=== PATIENT | female | born 1980 | race Caucasian/White ===

== ENCOUNTER 2016-09-26 03:20 | Emergency (ER) | payer OTHER ==
[2016-09-26 03:29] VITALS: RESP 18
[2016-09-26] MEDS ORDERED: KETOROLAC 30 MG/ML 1 ML VIAL IVP STA (03:38)
[2016-09-26] MEDS ORDERED: SODIUM CHLORIDE 0.9% 1,000 ML IV STA (03:38)
[2016-09-26] MEDS ORDERED: ONDANSETRON 4 MG/2 ML VIAL IVP STA ×2 (03:38→05:45)
--- NOTE | 2016-09-26 03:56 | ED ---
Abdominal Pain HPI - General Source: patient, RN notes reviewed, old records reviewed Mode of arrival: ambulatory Limitations: no limitations <Geeta Reid - Last Filed: 09/26/16 04:10> <Iggy Lopez - Last Filed: 09/26/16 05:45> - General Chief Complaint: Abdominal Pain Stated Complaint: abdominal pain, nausea Time Seen by Provider: 09/26/16 03:36 - History of Present Illness Initial Comments: Is a 36-year-old female presents emergency Department with chief complaint of 1 day of lower abdominal pain and nausea. She denies any specific vomiting. Patient states that she's been having menstrual cramps and bleeding for the past month. She reports that she had a low hemoglobin a month ago. She states that she has been started on control pills but she is continuing to bleed. Patient denies any fever or chills. Denies any changes in urination or bowel movements. Patient reports that she has a history of ovarian cyst. Surgical history includes laparoscopic procedure to remove an ovarian cyst. ( Geeta Reid) - Related Data Home Medications Medication Instructions Recorded Confirmed Albuterol Nebulized [Ventolin 2.5 mg INHALATION QID PRN 08/09/16 09/26/16 Nebulized] Norgestimate-Ethinyl Estradiol 09/26/16 [Trinessa Tablet] Allergies Allergy/AdvReac Type Severity Reaction Status Date / Time No Known Allergies Allergy Verified 08/09/16 19:13 Review of Systems ROS Other: All systems not noted in ROS Statement are negative. <Geeta Reid - Last Filed: 09/26/16 04:10> ROS Other: All systems not noted in ROS Statement are negative. <Iggy Lopez - Last Filed: 09/26/16 05:45> ROS Statement: Those systems with pertinent positive or pertinent negative responses have been documented in the HPI. Past Medical History Past Medical History: Asthma History of Any Multi-Drug Resistant Organisms: None Reported Additional Past Surgical History / Comment(s): ovarian cyst Past Psychological History: Anxiety Smoking Status: Never smoker Past Alcohol Use History: None Reported Past Drug Use History: None Reported <Geeta Reid - Last Filed: 09/26/16 04:10> General Exam Limitations: no limitations General appearance: alert, in no apparent distress Head exam: Present: atraumatic, normocephalic, normal inspection Eye exam: Present: normal appearance, PERRL, EOMI. Absent: scleral icterus, conjunctival injection, periorbital swelling ENT exam: Present: normal exam, mucous membranes moist Neck exam: Present: normal inspection. Absent: tenderness, meningismus, lymphadenopathy Respiratory exam: Present: normal lung sounds bilaterally. Absent: respiratory distress, wheezes, rales, rhonchi, stridor Cardiovascular Exam: Present: regular rate, normal rhythm, normal heart sounds. Absent: systolic murmur, diastolic murmur, rubs, gallop, clicks GI/Abdominal exam: Present: soft, tenderness (Bilateral lower abdominal tenderness.), normal bowel sounds. Absent: distended, guarding, rebound, rigid External exam: Present: normal external exam. Absent: erythema Speculum exam: Present: vaginal bleeding. Absent: normal speculum exam, vaginal discharge, foreign body, tissue, laceration By manual exam: Present: normal by manual exam. Absent: cervical motion tenderness, adnexal tenderness, adnexal mass, uterine enlargement Extremities exam: Present: normal inspection, full ROM, normal capillary refill. Absent: tenderness, pedal edema, joint swelling, calf tenderness Back exam: Present: normal inspection Neurological exam: Present: alert, oriented X3, CN II-XII intact Psychiatric exam: Present: normal affect, normal mood Skin exam: Present: warm, dry, intact, normal color. Absent: rash <Geeta Reid - Last Filed: 09/26/16 04:10> <Iggy Lopez - Last Filed: 09/26/16 05:45> - General Exam Comments Initial Comments: Is an anxious 36-year-old female. Patient appears to be in some discomfort. ( Geeta Reid) Course <Geeta Reid - Last Filed: 09/26/16 04:10> <Iggy Lopez - Last Filed: 09/26/16 05:45> Vital Signs 09/26/16 03:25 Temperature 99.0 F Pulse Rate 75 Respiratory 18 Rate Blood Pressure 132/77 O2 Sat by Pulse 96 Oximetry - Reevaluation(s) Reevaluation #1: 09/26/16 04:11 At 4 AM patient's case will be transferred to Dr. Lopez. (Geeta Reid) Medical Decision Making - Lab Data Result diagrams: 09/26/16 03:57 <Geeta Reid - Last Filed: 09/26/16 04:10> - Lab Data Result diagrams: 09/26/16 03:57 09/26/16 03:57 <Iggy Lopez - Last Filed: 09/26/16 05:45> - Medical Decision Making I went into the room to reevaluate the patient. Patient stated that her pain came on about 7:00 and progressively got worse to about 2:00 in the morning. Patient states currently the pain is improved but is on both sides of her abdomen. Patient states touching her belly does not make it worse. Patient states she still feeling nauseated. Patient states she has a [employer] appointment today at 2:00 for the vaginal bleeding. On examination her belly has no area of tenderness on palpation (Iggy Lopez) - Lab Data Lab Results 09/26/16 09/26/16 09/26/16 Range/Units 03:57 03:57 03:57 WBC 10.7 H (3.8-10.6) k/uL RBC 4.07 (3.80-5.40) m/uL Hgb 12.9 (11.4-16.0) gm/dL Hct 36.9 (34.0-46.0) % MCV 90.7 (80.0-100.0) fL MCH 31.7 (25.0-35.0) pg MCHC 35.0 (31.0-37.0) g/dL RDW 12.8 (11.5-15.5) % Plt Count 241 (150-450) k/uL Neutrophils % 61 % Lymphocytes % 31 % Monocytes % 4 % Eosinophils % 2 % Basophils % 0 % Neutrophils # 6.5 (1.3-7.7) k/uL Lymphocytes # 3.3 (1.0-4.8) k/uL Monocytes # 0.4 (0-1.0) k/uL Eosinophils # 0.2 (0-0.7) k/uL Basophils # 0.1 (0-0.2) k/uL Sodium 140 (137-145) mmol/L Potassium 4.2 (3.5-5.1) mmol/L Chloride 106 (98-107) mmol/L Carbon Dioxide 23 (22-30) mmol/L Anion Gap 11 mmol/L BUN 23 H (7-17) mg/dL Creatinine 0.77 (0.52-1.04) mg/dL Est GFR (MDRD) Af Amer >60 (>60 ml/min/1.73 sqM) Est GFR (MDRD) Non-Af >60 (>60 ml/min/1.73 sqM) Glucose 110 H (74-99) mg/dL Calcium 9.6 (8.4-10.2) mg/dL Total Bilirubin 0.4 (0.2-1.3) mg/dL AST 20 (14-36) U/L ALT 28 (9-52) U/L Alkaline Phosphatase 52 (38-126) U/L Total Protein 7.6 (6.3-8.2) g/dL Albumin 4.3 (3.5-5.0) g/dL Amylase 49 (30-110) U/L Lipase 235 (23-300) U/L Urine Color Red Urine Appearance Cloudy H (Clear) Urine pH 5.5 (5.0-8.0) Ur Specific [place] 1.017 (1.001-1.035) Urine Protein 1+ H (Negative) Urine Glucose (UA) Negative (Negative) Urine Ketones Negative (Negative) Urine Blood Large H (Negative) Urine Nitrite Negative (Negative) Urine Bilirubin Negative (Negative) Urine Urobilinogen <2.0 (<2.0) mg/dL Ur Leukocyte Esterase Moderate H (Negative) Urine RBC >182 H (0-5) /hpf Urine WBC >182 H (0-5) /hpf Urine HCG, Qual (Not Detectd) 09/26/16 Range/Units 03:57 WBC (3.8-10.6) k/uL RBC (3.80-5.40) m/uL Hgb (11.4-16.0) gm/dL Hct (34.0-46.0) % MCV (80.0-100.0) fL MCH (25.0-35.0) pg MCHC (31.0-37.0) g/dL RDW (11.5-15.5) % Plt Count (150-450) k/uL Neutrophils % % Lymphocytes % % Monocytes % % Eosinophils % % Basophils % % Neutrophils # (1.3-7.7) k/uL Lymphocytes # (1.0-4.8) k/uL Monocytes # (0-1.0) k/uL Eosinophils # (0-0.7) k/uL Basophils # (0-0.2) k/uL Sodium (137-145) mmol/L Potassium (3.5-5.1) mmol/L Chloride (98-107) mmol/L Carbon Dioxide (22-30) mmol/L Anion Gap mmol/L BUN (7-17) mg/dL Creatinine (0.52-1.04) mg/dL Est GFR (MDRD) Af Amer (>60 ml/min/1.73 sqM) Est GFR (MDRD) Non-Af (>60 ml/min/1.73 sqM) Glucose (74-99) mg/dL Calcium (8.4-10.2) mg/dL Total Bilirubin (0.2-1.3) mg/dL AST (14-36) U/L ALT (9-52) U/L Alkaline Phosphatase (38-126) U/L Total Protein (6.3-8.2) g/dL Albumin (3.5-5.0) g/dL Amylase (30-110) U/L Lipase (23-300) U/L Urine Color Urine Appearance (Clear) Urine pH (5.0-8.0) Ur Specific [place] (1.001-1.035) Urine Protein (Negative) Urine Glucose (UA) (Negative) Urine Ketones (Negative) Urine Blood (Negative) Urine Nitrite (Negative) Urine Bilirubin (Negative) Urine Urobilinogen (<2.0) mg/dL Ur Leukocyte Esterase (Negative) Urine RBC (0-5) /hpf Urine WBC (0-5) /hpf Urine HCG, Qual Not Detected (Not Detectd) Disposition <Geeta Reid - Last Filed: 09/26/16 04:10> Time of Disposition: 05:45 <Iggy Lopez - Last Filed: 09/26/16 05:45> Clinical Impression: Dysfunctional uterine bleeding, Abdominal pain Disposition: HOME SELF-CARE Condition: Good Instructions: Abdominal Pain (ED) Additional Instructions: Patient should follow-up with her [employer] at 2:00 today as previously scheduled Referrals: Nonstaff,Physician [Primary Care Provider] - 1-2 days
[2016-09-26 04:03] LABS: Basophils # (A) 0.1 k/uL (0-0.2); Basophils % (A) 0 %; CH 31.2; CHCM 34.5; Eosinophils # (A) 0.2 k/uL (0-0.7); Eosinophils % (A) 2 %; HCT 36.9 % (34.0-46.0); HGB 12.9 gm/dL (11.4-16.0); Luc # (Auto) 0.12; Luc % (Auto) 1; Lymphocytes # (A) 3.3 k/uL (1.0-4.8); Lymphocytes % (A) 31 %; MCH 31.7 pg (25.0-35.0); MCV 90.7 fL (80.0-100.0); Mean Platelet Volume 6.4; Monocytes # (A) 0.4 k/uL (0-1.0); Monocytes % (A) 4 %; Neutrophils # (A) 6.5 k/uL (1.3-7.7); Neutrophils % (A) 61 %; RBC 4.07 m/uL (3.80-5.40); RDW 12.8 % (11.5-15.5); WBC 10.7 k/uL (3.8-10.6); WBC (Perox) 10.84
[2016-09-26 04:05] LABS: Appearance,Urine Cloudy (Clear); Bilirubin,Urine Negative (Negative); Glucose,Urine (UA) Negative (Negative); Ketones,Urine Negative (Negative); Leukocyte Esterase,Urine Moderate (Negative); Nitrite,Urine Negative (Negative); PH, Urine 5.5 (5.0-8.0); Particle Count 4502; Protein,Urine 1+ (Negative); RBC,Urine >182 /hpf (0-5); Specific Gravity,Urine 1.017 (1.001-1.035); UA Billing (MACRO vs. MICRO) MICRO; Urobilinogen,Urine <2.0 mg/dL (<2.0); WBC,Urine >182 /hpf (0-5)
[2016-09-26 04:11] LABS: ALT 28 U/L (9-52); AST 20 U/L (14-36); Alkaline Phosphatase 52 U/L (38-126); Amylase 49 U/L (30-110); Anion Gap 11 mmol/L; Blood Urea Nitrogen 23 mg/dL (7-17); Calcium 9.6 mg/dL (8.4-10.2); Carbon Dioxide 23 mmol/L (22-30); Chloride 106 mmol/L (98-107); Glucose 110 mg/dL (74-99); Non-African American GFR(MDRD) >60 (>60 ml/min/1.73 sqM); Potassium 4.2 mmol/L (3.5-5.1); Sodium 140 mmol/L (137-145); Total Bilirubin 0.4 mg/dL (0.2-1.3); Total Protein 7.6 g/dL (6.3-8.2)
--- NOTE | 2016-09-26 04:33 | XR ---
ADDENDUM - Added by Dixie Sykes MD on 09/26/2016 4:36 AM (-07:00) Comparison made with CT dated 08/09/2016. EXAM: XR Abdomen Complete, 2 Views CLINICAL HISTORY: Abdominal pain. TECHNIQUE: Frontal view of the abdomen/pelvis with upright view of the abdomen. COMPARISON: No relevant prior studies available. FINDINGS: Intraperitoneal space: No evidence of free air. Gastrointestinal tract: No dilated small bowel loops to suggest small bowel obstruction. Bones/joints: Unremarkable. IMPRESSION: Nonspecific bowel gas pattern. No evidence of bowel obstruction or free air.
[2016-09-26] MEDS ORDERED: HYDROmorphone 1 MG/ML 1 ML SYRINGE IVP STA ×2 (05:09→05:45)
[2016-09-26] MEDS ORDERED: ONDANSETRON 4 MG ODT STARTER PACK 2 TAB BTL PO STA (05:45)
[2016-09-26 06:13] VITALS: BP 141/86; PULSE 86; TEMP 97.8
== END 2016-09-26 06:10 | disposition home or self-care (01) ==
LOC: EC 03:20
DX: N93.8 Other specified abnormal uterine and vaginal bleeding (principal); R10.31 Right lower quadrant pain; R10.32 Left lower quadrant pain; R11.0 Nausea; Z79.3 Long term (current) use of hormonal contraceptives
CPT/HCPCS: 36415; 80053; 82150; 83690; 85025; 81001; 81025; 87070; 87205; 74000; 99284; 96374; 96375 ×2; 96376 ×2; 96361 ×2; J2405; J1885; J1170; S0119

== ENCOUNTER 2017-02-03 22:21 | Emergency (ER) | payer OTHER ==
[2017-02-03 22:46] VITALS: BP 145/84; PULSE 73; RESP 20; TEMP 98.9
--- NOTE | 2017-02-03 23:02 | ED ---
URI HPI - General Chief Complaint: Upper Respiratory Infection Stated Complaint: Cogestion Source: patient Mode of arrival: ambulatory Limitations: no limitations - History of Present Illness Initial Comments: Patient presents with nasal congestion that she states has been constant for 1 day. Patient has not tried anything for treatment home. Mother bedside states patient does have a history of seasonal ALLERGIES. Patient is not on any daily medication for congestion or seasonal ALLERGIES. Patient does have a history of asthma, states she's been using her a butyl inhaler every 4 hours as needed, states she only has 3 cartridges left. States she does not feel short of breath or wheezy at this time. Patient denies fevers, chills, nausea, vomiting , vision changes, ear pain, ear drainage, nosebleeds, sore throat, dental problems, facial swelling, chest pain, abdominal pain, changes in urination. MD Complaint: nasal congestion Onset/Timin -: days(s) Severity: moderate - Related Data Home Medications Medication Instructions Recorded Confirmed Albuterol Nebulized [Ventolin 2.5 mg INHALATION QID PRN 08/09/16 09/26/16 Nebulized] Norgestimate-Ethinyl Estradiol 09/26/16 [Trinessa Tablet] Previous Rx's Medication Instructions Recorded Albuterol Nebulized [Ventolin 2.5 mg INHALATION Q4H PRN #30 nebu 02/03/17 Nebulized] Loratadine [Claritin] 10 mg PO DAILY #5 tab 02/03/17 Oxymetazoline 0.05% Nasl [place] 2 spray EA NOSTRIL BID PRN #1 02/03/17 [Afrin 0.05% Nasal [place]] bottle Allergies Allergy/AdvReac Type Severity Reaction Status Date / Time No Known Allergies Allergy Verified 02/03/17 22:46 Review of Systems ROS Statement: Those systems with pertinent positive or pertinent negative responses have been documented in the HPI. Constitutional: Denies: fever, chills, weakness Eyes: Denies: eye pain, eye discharge, vision change ENT: Reports: congestion. Denies: ear pain, throat pain, dental pain, hearing loss, epistaxis Respiratory: Denies: cough, dyspnea, wheezes, stridor Cardiovascular: Denies: chest pain, palpitations Endocrine: Denies: fatigue Gastrointestinal: Denies: abdominal pain, nausea, vomiting, diarrhea, constipation Genitourinary: Denies: urgency, dysuria, frequency, hematuria Skin: Denies: rash Neurological: Denies: headache, weakness, numbness Past Medical History Past Medical History: Asthma History of Any Multi-Drug Resistant Organisms: None Reported Additional Past Surgical History / Comment(s): ovarian cyst Past Psychological History: Anxiety Smoking Status: Never smoker Past Alcohol Use History: None Reported Past Drug Use History: None Reported General Exam - General Exam Comments Initial Comments: Sitting up on bed bed. No acute distress. Conversing normally. Call, pleasant. Well-appearing. Limitations: no limitations General appearance: alert, in no apparent distress Head exam: Present: atraumatic, normocephalic Eye exam: Present: normal appearance, PERRL, EOMI ENT exam: Present: normal oropharynx, mucous membranes moist, TM's normal bilaterally, normal external ear exam, other (Significant nasal congestion bilaterally. No sinus tenderness) Neck exam: Present: normal inspection, full ROM. Absent: tenderness, meningismus, lymphadenopathy Respiratory exam: Present: normal lung sounds bilaterally. Absent: respiratory distress, wheezes, rales, rhonchi Cardiovascular Exam: Present: regular rate, normal rhythm GI/Abdominal exam: Present: soft. Absent: distended, tenderness, guarding, rebound Neurological exam: Present: alert, oriented X3 Psychiatric exam: Present: normal affect, normal mood Skin exam: Present: warm, dry, intact, normal color. Absent: rash Course Vital Signs 02/03/17 02/03/17 22:44 23:08 Temperature 98.9 F Pulse Rate 73 Respiratory 20 20 Rate Blood Pressure 145/84 O2 Sat by Pulse 98 Oximetry Medical Decision Making - Medical Decision Making Patient presents with 1 day of nasal congestion. No other associated symptoms. Patient denies fevers, chills, nausea, vomiting. Patient's symptoms likely secondary to viral URI versus ALLERGIC rhinitis. Patient has not tried any treatments at home plus far. Discussed treatment options with mother patient, they agree with Afrin nasal spray, claritin. Patient states she is almost out of her albuterol, prescription given for albuterol nebulizer refills. Patient to follow up with primary care physician within one to 2 days. Return to ED if new or worsening symptoms. Patient mother understand and agree. At this time I do not feel patient has signs of more significant illness, systemic illness, or signs of meningitis, pneumonia, venous sinus thrombosis, bacterial sinusitis , otitis media. Disposition Clinical Impression: Upper respiratory infection Disposition: HOME SELF-CARE Condition: Good Instructions: Upper Respiratory Infection (ED) Prescriptions: Albuterol Nebulized [Ventolin Nebulized] 2.5 mg INHALATION Q4H PRN #30 nebu PRN Reason: Shortness Of Breath Loratadine [Claritin] 10 mg PO DAILY #5 tab Oxymetazoline 0.05% Nasl [place] [Afrin 0.05% Nasal [place]] 2 spray EA NOSTRIL BID PRN #1 bottle PRN Reason: Congestion Referrals: None,Stated [Primary Care Provider] - 1-2 days
== END 2017-02-03 23:25 | disposition home or self-care (01) ==
LOC: EC 22:21
DX: J06.9 Acute upper respiratory infection, unspecified (principal); Z79.3 Long term (current) use of hormonal contraceptives; Z88.9 Allergy status to unspecified drugs, medicaments and biological substances
CPT/HCPCS: 99283

== ENCOUNTER 2017-04-30 18:11 | Emergency (ER) | payer OTHER ==
[2017-04-30 19:59] VITALS: RESP 18
[2017-04-30] MEDS ORDERED: KETOROLAC 30 MG/ML 1 ML VIAL IVP STA (20:57)
[2017-04-30] MEDS ORDERED: SODIUM CHLORIDE 0.9% 1,000 ML IV ONE (20:57)
--- NOTE | 2017-04-30 21:08 | ED ---
General Adult HPI - General Chief complaint: Vaginal Bleeding Stated complaint: abdominal pain, bleeding 22 days Time Seen by Provider: 04/30/17 20:31 Source: patient Mode of arrival: ambulatory Limitations: no limitations - History of Present Illness Initial comments: 37-year-old female patient presented to the emergency department today with a 22 day history of vaginal bleeding. Patient states that on 04/08/2017 she started what she thought was her usual period. She states that the bleeding has persisted throughout the last 22 days. She states that the bleeding is moderate. States that she changes a pad approximately every 3 hours, and states that it is approximately half saturated. She states that today she has been feeling weak and has had increased abdominal cramping. She states that she has had issues with her period since 2014 when she was receiving Depo- Medrol shots for her ALLERGIES. She states that it was not unusual for her to have periods that would last 3-4 weeks. She states that they did start her on a control tablets at the end of August 2016, states this did regulate her period for 3 months however she developed ovarian cysts that were felt to be due to the control so they discontinued the contraceptive. States that she has not had a period since December. She denies any back pain. Denies any hematuria, dysuria, urinary frequency, urinary urgency. Patient denies any chance of . Patient denies any recent rash, fever, chills, shortness breath, chest pain, nausea, vomiting, diarrhea, constipation, back pain, numbness, tingling, dizziness, headache, visual changes, or any other complaints. - Related Data Home Medications Medication Instructions Recorded Confirmed Albuterol Nebulized [Ventolin 2.5 mg INHALATION RT-Q4H PRN 04/30/17 04/30/17 Nebulized] Previous Rx's Medication Instructions Recorded Ibuprofen [Motrin] 600 mg PO Q8HR PRN #30 tab 05/01/17 Allergies Allergy/AdvReac Type Severity Reaction Status Date / Time No Known Allergies Allergy Verified 04/30/17 20:32 Review of Systems ROS Statement: Those systems with pertinent positive or pertinent negative responses have been documented in the HPI. ROS Other: All systems not noted in ROS Statement are negative. Past Medical History Past Medical History: Asthma History of Any Multi-Drug Resistant Organisms: None Reported Additional Past Surgical History / Comment(s): ovarian cyst Past Psychological History: Anxiety Smoking Status: Never smoker Past Alcohol Use History: None Reported Past Drug Use History: None Reported General Exam Limitations: no limitations General appearance: alert, in no apparent distress, other (This is a well- developed, well-nourished adult female patient in no acute distress. Vital signs upon presentation are temperature 98.7F, pulse 81, respirations 18, blood pressure 127/67, pulse ox 98% on room air.) Eye exam: Present: normal appearance, PERRL, EOMI. Absent: scleral icterus, conjunctival injection, periorbital swelling ENT exam: Present: normal exam, normal oropharynx, mucous membranes moist Respiratory exam: Present: normal lung sounds bilaterally. Absent: respiratory distress, wheezes, rales, rhonchi, stridor Cardiovascular Exam: Present: regular rate, normal rhythm, normal heart sounds. Absent: systolic murmur, diastolic murmur, rubs, gallop, clicks GI/Abdominal exam: Present: soft, tenderness (Lower abdomen), normal bowel sounds. Absent: distended, guarding, rebound, rigid Back exam: Present: normal inspection. Absent: CVA tenderness (R), CVA tenderness (L) Neurological exam: Present: alert, oriented X3, CN II-XII intact Psychiatric exam: Present: normal affect, anxious Skin exam: Present: warm, dry, intact, normal color. Absent: rash Course Vital Signs 04/30/17 04/30/17 05/01/17 19:55 22:45 00:26 Temperature 98.7 F 98.3 F 97.9 F Pulse Rate 81 68 64 Respiratory 18 18 18 Rate Blood Pressure 127/67 124/59 151/60 O2 Sat by Pulse 98 96 96 Oximetry Medical Decision Making - Medical Decision Making 37-year-old female patient presents to the emergency department today with a 22 day history of vaginal bleeding and suprapubic abdominal cramping. Physical examination was unremarkable. Patient was not tender over her abdomen. Labs were reviewed and did show a mildly elevated white blood cell count at 10.9. Other labs are unremarkable. Urinalysis was negative for any acute infections. We did obtain ultrasound transvaginally of the pelvic region, this showed a simple cyst on the left ovary. Right ovary was not visualized. Patient's pain was well-controlled. I do not believe ovarian torsion is a contributing factor to her pain at this time. Patient does have a follow-up appointment with her movement assembler on 05/08/2017. She is urged to keep this appointment. She is instructed to return here immediately for any new, worsening, or concerning symptoms. She verbalizes understanding and agrees with this plan. - Lab Data Result diagrams: 04/30/17 21:30 04/30/17 21:30 Lab Results 04/30/17 04/30/17 04/30/17 Range/Units 21:03 21:03 21:30 WBC 10.9 H (3.8-10.6) k/uL RBC 4.26 (3.80-5.40) m/uL Hgb 13.1 (11.4-16.0) gm/dL Hct 38.9 (34.0-46.0) % MCV 91.2 (80.0-100.0) fL MCH 30.7 (25.0-35.0) pg MCHC 33.7 (31.0-37.0) g/dL RDW 14.2 (11.5-15.5) % Plt Count 236 (150-450) k/uL Neutrophils % 62 % Lymphocytes % 31 % Monocytes % 4 % Eosinophils % 2 % Basophils % 0 % Neutrophils # 6.7 (1.3-7.7) k/uL Lymphocytes # 3.4 (1.0-4.8) k/uL Monocytes # 0.4 (0-1.0) k/uL Eosinophils # 0.2 (0-0.7) k/uL Basophils # 0.0 (0-0.2) k/uL PT (9.0-12.0) sec INR (<1.2) APTT (22.0-30.0) sec Sodium (137-145) mmol/L Potassium (3.5-5.1) mmol/L Chloride (98-107) mmol/L Carbon Dioxide (22-30) mmol/L Anion Gap mmol/L BUN (7-17) mg/dL Creatinine (0.52-1.04) mg/dL Est GFR (MDRD) Af Amer (>60 ml/min/1.73 sqM) Est GFR (MDRD) Non-Af (>60 ml/min/1.73 sqM) Glucose (74-99) mg/dL Calcium (8.4-10.2) mg/dL Total Bilirubin (0.2-1.3) mg/dL AST (14-36) U/L ALT (9-52) U/L Alkaline Phosphatase (38-126) U/L Total Protein (6.3-8.2) g/dL Albumin (3.5-5.0) g/dL Urine Color Light Yellow Urine Appearance Clear (Clear) Urine pH 5.5 (5.0-8.0) Ur Specific [place] 1.011 (1.001-1.035) Urine Protein Negative (Negative) Urine Glucose (UA) Negative (Negative) Urine Ketones Negative (Negative) Urine Blood Moderate H (Negative) Urine Nitrite Negative (Negative) Urine Bilirubin Negative (Negative) Urine Urobilinogen <2.0 (<2.0) mg/dL Ur Leukocyte Esterase Negative (Negative) Urine RBC 1 (0-5) /hpf Urine WBC 2 (0-5) /hpf Ur Squamous Epith Cells 1 (0-4) /hpf Urine Bacteria Occasional H (None) /hpf Urine Mucus Rare H (None) /hpf Urine HCG, Qual Not Detected (Not Detectd) Blood Type Blood Type Recheck Antibody Screen Spec Expiration Date 04/30/17 04/30/17 04/30/17 Range/Units 21:30 22:47 22:47 WBC (3.8-10.6) k/uL RBC (3.80-5.40) m/uL Hgb (11.4-16.0) gm/dL Hct (34.0-46.0) % MCV (80.0-100.0) fL MCH (25.0-35.0) pg MCHC (31.0-37.0) g/dL RDW (11.5-15.5) % Plt Count (150-450) k/uL Neutrophils % % Lymphocytes % % Monocytes % % Eosinophils % % Basophils % % Neutrophils # (1.3-7.7) k/uL Lymphocytes # (1.0-4.8) k/uL Monocytes # (0-1.0) k/uL Eosinophils # (0-0.7) k/uL Basophils # (0-0.2) k/uL PT 10.4 (9.0-12.0) sec INR 1.1 (<1.2) APTT 23.4 (22.0-30.0) sec Sodium 134 L (137-145) mmol/L Potassium 4.1 (3.5-5.1) mmol/L Chloride 101 (98-107) mmol/L Carbon Dioxide 26 (22-30) mmol/L Anion Gap 7 mmol/L BUN 23 H (7-17) mg/dL Creatinine 0.93 (0.52-1.04) mg/dL Est GFR (MDRD) Af Amer >60 (>60 ml/min/1.73 sqM) Est GFR (MDRD) Non-Af >60 (>60 ml/min/1.73 sqM) Glucose 105 H (74-99) mg/dL Calcium 9.3 (8.4-10.2) mg/dL Total Bilirubin 0.3 (0.2-1.3) mg/dL AST 22 (14-36) U/L ALT 36 (9-52) U/L Alkaline Phosphatase 60 (38-126) U/L Total Protein 6.9 (6.3-8.2) g/dL Albumin 3.9 (3.5-5.0) g/dL Urine Color Urine Appearance (Clear) Urine pH (5.0-8.0) Ur Specific [place] (1.001-1.035) Urine Protein (Negative) Urine Glucose (UA) (Negative) Urine Ketones (Negative) Urine Blood (Negative) Urine Nitrite (Negative) Urine Bilirubin (Negative) Urine Urobilinogen (<2.0) mg/dL Ur Leukocyte Esterase (Negative) Urine RBC (0-5) /hpf Urine WBC (0-5) /hpf Ur Squamous Epith Cells (0-4) /hpf Urine Bacteria (None) /hpf Urine Mucus (None) /hpf Urine HCG, Qual (Not Detectd) Blood Type A Negative Blood Type Recheck CABO Indicated Antibody Screen NEGATIVE Spec Expiration Date 05/03/2017 - 2344 - Radiology Data Radiology results: report reviewed, image reviewed Transvaginal ultrasound of the pelvis was obtained, report was reviewed in its entirety. Impression by Dr. Diane shows left ovary contains a simple 5.4 cm cyst. Right ovary was not visualized. Disposition Clinical Impression: Dysfunctional uterine bleeding, Ovarian cyst Disposition: HOME SELF-CARE Condition: Good Instructions: Dysfunctional Uterine Bleeding (ED), Ovarian Cyst (ED) Additional Instructions: Follow-up with Oncologist as soon as possible. Take medications as directed. Return here immediately for any new, worsening, or concerning symptoms. Prescriptions: Ibuprofen [Motrin] 600 mg PO Q8HR PRN #30 tab PRN Reason: Pain Referrals: None,Stated [Primary Care Provider] - 1-2 days Time of Disposition: 00:23
[2017-04-30 21:30] LABS: Appearance,Urine Clear (Clear); Bacteria,Urine Occasional /hpf; Bilirubin,Urine Negative (Negative); Glucose,Urine (UA) Negative (Negative); Ketones,Urine Negative (Negative); Leukocyte Esterase,Urine Negative (Negative); Mucus,Urine Rare /hpf; Nitrite,Urine Negative (Negative); PH, Urine 5.5 (5.0-8.0); Particle Count 1640; Protein,Urine Negative (Negative); RBC,Urine 1 /hpf (0-5); Specific Gravity,Urine 1.011 (1.001-1.035); Squamous Epithelial Cell,Urine 1 /hpf (0-4); UA Billing (MACRO vs. MICRO) MICRO; Urobilinogen,Urine <2.0 mg/dL (<2.0); WBC,Urine 2 /hpf (0-5)
[2017-04-30 21:46] LABS: Basophils % (A) 0 %; CH 31.2; CHCM 34.3; Eosinophils # (A) 0.2 k/uL (0-0.7); Eosinophils % (A) 2 %; HCT 38.9 % (34.0-46.0); HDW 2.45; HGB 13.1 gm/dL (11.4-16.0); Luc # (Auto) 0.15; Luc % (Auto) 1; Lymphocytes # (A) 3.4 k/uL (1.0-4.8); Lymphocytes % (A) 31 %; MCH 30.7 pg (25.0-35.0); MCHC 33.7 g/dL (31.0-37.0); MCV 91.2 fL (80.0-100.0); Monocytes # (A) 0.4 k/uL (0-1.0); Monocytes % (A) 4 %; Neutrophils # (A) 6.7 k/uL (1.3-7.7); Neutrophils % (A) 62 %; RBC 4.26 m/uL (3.80-5.40); RDW 14.2 % (11.5-15.5); WBC 10.9 k/uL (3.8-10.6); WBC (Perox) 11.24
[2017-04-30 21:57] LABS: ALT 36 U/L (9-52); AST 22 U/L (14-36); Alkaline Phosphatase 60 U/L (38-126); Anion Gap 7 mmol/L; Blood Urea Nitrogen 23 mg/dL (7-17); Calcium 9.3 mg/dL (8.4-10.2); Carbon Dioxide 26 mmol/L (22-30); Chloride 101 mmol/L (98-107); Glucose 105 mg/dL (74-99); Non-African American GFR(MDRD) >60 (>60 ml/min/1.73 sqM); Potassium 4.1 mmol/L (3.5-5.1); Sodium 134 mmol/L (137-145); Total Bilirubin 0.3 mg/dL (0.2-1.3); Total Protein 6.9 g/dL (6.3-8.2)
--- NOTE | 2017-04-30 22:42 | US ---
EXAM: US Pelvis, Transvaginal CLINICAL HISTORY: Reason: pain TECHNIQUE: Real-time transvaginal pelvic ultrasound (complete) with image documentation. Transvaginal imaging was used for better evaluation of the endometrium and adnexa. COMPARISON: 08/09/16 FINDINGS: Anteverted uterus measuring 7.4 x 5.1 x 5.9 cm. Endometrial stripe is 7 mm in thickness with normal appearance. Cervical nabothian cyst noted. Left ovary is 5.4 x 4.2 x 5.4 cm and contains an anechoic 5.4 cm cyst. Vascularity is noted in ovarian tissue stretched over the periphery of the cyst. Right ovary was not visualized due to obscuring bowel gas. No significant fluid in the cul-de-sac. IMPRESSION: Left ovary contains a simple 5.4 cm cyst. Right ovary was not visualized.
[2017-04-30 23:30] LABS: INR 1.1 (<1.2); Partial Thromboplastin Time 23.4 sec (22.0-30.0); Prothrombin Time 10.4 sec (9.0-12.0)
[2017-05-01 00:27] VITALS: BP 151/60; PULSE 64; TEMP 97.9
== END 2017-05-01 00:30 | disposition home or self-care (01) ==
LOC: EC 18:11
DX: N93.8 Other specified abnormal uterine and vaginal bleeding (principal); N83.202 Unspecified ovarian cyst, left side; D72.829 Elevated white blood cell count, unspecified
CPT/HCPCS: 36415; 86900; 86901; 80053; 85025; 85610; 85730; 86850; 81001; 81025; 76830; 99284; 96374; 96361 ×3; J1885

== ENCOUNTER 2017-06-22 16:49 | Emergency (ER) | payer OTHER ==
[2017-06-22 16:54] VITALS: RESP 18; TEMP 98.7
[2017-06-22] MEDS ORDERED: HYDROmorphone 0.5 MG/0.5 ML SYRINGE IM STA (17:13)
--- NOTE | 2017-06-22 17:19 | ED ---
General Adult HPI - General Chief complaint: Headache Stated complaint: Facial Pain Time Seen by Provider: 06/22/17 16:58 Source: patient, RN notes reviewed, old records reviewed Mode of arrival: ambulatory Limitations: no limitations - History of Present Illness Initial comments: Chief complaint and history of present illness this is a 29-year-old female complaint of pain to the right side of her head and face for the past 4 days. Patient states she had a canker sore on the angle of her right mouth and used Orajel. She thinks may have caused an infection. The patient denies any nausea vomiting no stiff neck. Mild dizziness no change in visual acuity. - Related Data Home Medications Medication Instructions Recorded Confirmed Albuterol Nebulized [Ventolin 2.5 mg INHALATION RT-Q4H PRN 04/30/17 06/22/17 Nebulized] Albuterol Inhaler [Ventolin Hfa 2 puff INHALATION RT-Q6H PRN 06/22/17 06/22/17 Inhaler] Ferrous Sulfate [Feosol] 325 mg PO DAILY 06/22/17 06/22/17 Previous Rx's Medication Instructions Recorded Penicillin V Potassium [Pen Vee K] 500 mg PO QID #40 tablet 06/22/17 Allergies Allergy/AdvReac Type Severity Reaction Status Date / Time No Known Allergies Allergy Verified 06/22/17 17:13 Review of Systems ROS Statement: Those systems with pertinent positive or pertinent negative responses have been documented in the HPI. Review of systems right-sided headache ongoing for 4 days. No injury. Pain does increase somewhat with pushing on the skin and clicking her teeth on the right side. States she had a cold several weeks ago. States her right ear feels full. Denies fever no nausea no vomiting. No neuro deficits. No chest pain shortness of breath GI/ problems no neuro deficits. All systems are reviewed. Past medical problems asthma and diabetes recently diagnosed and advised to lose weight and eat properly. No medications. Surgeries ovarian cyst. Family history basal cell cancer on her mother's chin. Patient has ALLERGIES to environmental things and cigarettes. Nonsmoker nondrinker. Patient has asthma and depression and is on disability because of it. ROS Other: All systems not noted in ROS Statement are negative. Past Medical History Past Medical History: Asthma, Diabetes Mellitus History of Any Multi-Drug Resistant Organisms: None Reported Additional Past Surgical History / Comment(s): ovarian cyst Past Psychological History: Anxiety Smoking Status: Never smoker Past Alcohol Use History: None Reported Past Drug Use History: None Reported General Exam - General Exam Comments Initial Comments: General: The patient is awake and alert, complains of right-sided headache. Worse with clicking her teeth in the right side of her face. No injuries no rashes. Vital signs temperature 98.7 pulse 71 respiratory rate 18 pulse ox 90% room air blood pressure 132/60 Eye: Pupils are equal, round and reactive to light, extra-ocular movements are intact ; there is normal conjunctiva bilaterally. No signs of icterus. Ears, nose, mouth and throat: There are moist mucous membranes and no oral lesions. Ears are clear. Significant dental caries especially with teeth numbers 3031 and 3 and 4. Neck: The neck is supple, there is no tenderness . No meningeal irritation Cardiovascular: There is a regular rate and rhythm. No murmur, rub or gallop is appreciated. Respiratory: Lungs are clear to auscultation, respirations are non-labored, breath sounds are equal. No wheezes, stridor, rales, or rhonchi. Gastrointestinal: No abdominal pain no nausea no vomiting no change in appetite. No diarrhea. Back: There is no tenderness to palpation in the midline. There is no obvious deformity. No rashes noted. Musculoskeletal: Normal ROM, no tenderness, There is no pedal edema. There is no calf tenderness or swelling. Neurological: CN II-XII intact, There are no obvious motor or sensory deficits. Coordination appears grossly intact. Speech is normal. No focal or lateralizing findings Skin: Skin is warm and dry and no rashes or lesions are noted. Psychiatric: History depression no complaint of depression at this time Limitations: no limitations Course Vital Signs 06/22/17 16:52 Temperature 98.7 F Pulse Rate 71 Respiratory 18 Rate Blood Pressure 132/60 O2 Sat by Pulse 98 Oximetry Medical Decision Making - Medical Decision Making Medical decision making; this is a 37-year-old female complaint of pain to the right side of her face. Does increase with clicking her teeth. The patient has multiple dental caries on teeth numbers 34 and 3031.. The patient was given pain medication . CT of the brain was done reviewed by radiologist his findings are; ventricles and sulci appear normal. There is no mass effect or midline shift. There is no sign of intracranial hemorrhage. The calvarium is intact. Conclusion; normal CT the brain. As read by Dr. Diaz Dental caries appear to be a cause of her discomfort. She'll be referred onto a dentist [facility] address will be provided Disposition Clinical Impression: Dental caries into pulp, Headache Disposition: HOME SELF-CARE Condition: Stable Instructions: Acute Headache (ED), Toothache (ED) Additional Instructions: Follow-up with your family doctor, take ibuprofen for pain. Take antibiotics as directed. Follow-up with a dentist as soon as possible Prescriptions: Penicillin V Potassium [Pen Vee K] 500 mg PO QID #40 tablet Referrals: Sheree Sands MD [Primary Care Provider] - 1-2 days Time of Disposition: 18:25
--- NOTE | 2017-06-22 17:54 | CT ---
EXAMINATION TYPE: CT brain wo con DATE OF EXAM: 06/22/2017 COMPARISON: NONE HISTORY: Right-sided headache CT DLP: mGycm. Automated Exposure Control for Dose Reduction was Utilized. TECHNIQUE: CT scan of the head is performed without contrast. FINDINGS: Ventricles and sulci appear normal. There is no mass effect nor midline shift. There is n o sign of intracranial hemorrhage. The calvarium is intact. CONCLUSION: Normal CT scan of the brain.
[2017-06-22] MEDS ORDERED: PENICILLIN VK 500MG STARTER 4 TAB BTL PO ONE (18:25)
[2017-06-22 18:50] VITALS: BP 145/70; PULSE 69
== END 2017-06-22 18:48 | disposition home or self-care (01) ==
LOC: EC 16:49
DX: K02.9 Dental caries, unspecified (principal); R51 Headache; Z79.899 Other long term (current) drug therapy
CPT/HCPCS: 99284; 96372; 70450; J1170

== ENCOUNTER 2017-11-18 19:22 | Emergency (ER) | payer OTHER ==
[2017-11-18 19:36] VITALS: BP 174/79; PULSE 84; RESP 18; TEMP 98.5
--- NOTE | 2017-11-18 20:03 | ED ---
ENT HPI - General Chief complaint: ENT Stated complaint: ear pain Time Seen by Provider: 11/18/17 19:38 Source: patient, RN notes reviewed Mode of arrival: ambulatory Limitations: no limitations - History of Present Illness Initial comments: This is a 37-year-old female who presents to the emergency department with chief complaint of possible left ear foreign body. Patient states that she felt like she had a fluid in her ear yesterday. She states that at 1 AM last night she cleaned out the left ear with a Q-tip. She states after removing the Q-tip she noticed that the end of it was missing. She states that she followed up with [facility] today and they flushed the ear. No foreign body was obtained. They recommended that patient presented to the emergency department. Patient states that she is having difficulty hearing and intermittent pain from the left ear. Denies fever, chills, chest pain, shortness of breath, abdominal pain, nausea or vomiting, numbness or tingling, headache or vision changes. - Related Data Home Medications Medication Instructions Recorded Confirmed Albuterol Nebulized [Ventolin 2.5 mg INHALATION RT-Q4H PRN 04/30/17 06/22/17 Nebulized] Albuterol Inhaler [Ventolin Hfa 2 puff INHALATION RT-Q6H PRN 06/22/17 06/22/17 Inhaler] Ferrous Sulfate [Feosol] 325 mg PO DAILY 06/22/17 06/22/17 Previous Rx's Medication Instructions Recorded Penicillin V Potassium [Pen Vee K] 500 mg PO QID #40 tablet 06/22/17 Amoxicillin 875 mg PO Q8HR #30 tablet 11/18/17 Fluticasone Nasal [place] [Flonase 1 spray EA NOSTRIL DAILY #1 bottle 11/18/17 Nasal [place]] Allergies Allergy/AdvReac Type Severity Reaction Status Date / Time No Known Allergies Allergy Verified 11/18/17 19:33 Review of Systems ROS Statement: Those systems with pertinent positive or pertinent negative responses have been documented in the HPI. ROS Other: All systems not noted in ROS Statement are negative. Past Medical History Past Medical History: Asthma, Diabetes Mellitus History of Any Multi-Drug Resistant Organisms: None Reported Additional Past Surgical History / Comment(s): ovarian cyst Past Psychological History: Anxiety Smoking Status: Never smoker Past Alcohol Use History: None Reported Past Drug Use History: None Reported General Exam - General Exam Comments Initial Comments: General: Awake and alert, well-developed; in no apparent distress. HEENT: Head atraumatic, normocephalic. Pupils are equal, round and reactive to light. Extraocular movements intact. Oropharynx moist without erythema or exudate. Left TM is mildly erythematous with effusion. Neck: Supple. Normal ROM. Cardiovascular: Regular rate and rhythm. No murmurs, rubs or gallops. Chest symmetrical. Respiratory: Lungs clear to auscultation bilaterally. No wheezes, rales or rhonchi. Normal respiratory effort with no use of accessory muscles. Musculoskeletal: Normal ROM, no tenderness bilateral upper and lower extremities. Ambulating normally. Skin: [place], warm and dry without rashes or lesions. Neurological: Alert and oriented x3. CN II-XII grossly intact. Speech is fluent and answers are appropriate. No focal neuro deficits. Psychiatric: Normal mood and affect. No overt signs of depression or anxiety noted. Limitations: no limitations Course Vital Signs 11/18/17 19:34 Temperature 98.5 F Pulse Rate 84 Respiratory 18 Rate Blood Pressure 174/79 O2 Sat by Pulse 98 Oximetry Medical Decision Making - Medical Decision Making This is a 37-year-old female who presents to the emergency department with chief complaint of possible foreign body within the left ear. Patient states that she thought she had a fluid in her left ear yesterday. She complains of decreased hearing and mild pain intermittently. On physical examination, left TM is mildly erythematous with effusion. Vital signs are stable and patient is in no acute distress. Patient will be started on antibiotics and Flonase. She will be discharged home at this time. She is in agreement with plan and voices understanding. All questions answered. Disposition Clinical Impression: Acute otitis media with effusion of left ear Disposition: HOME SELF-CARE Condition: Good Instructions: Otitis Media (ED) Additional Instructions: Please take medications as prescribed. Please follow up with primary care provider within 1-2 days. Return to emergency department if symptoms should worsen or any concerns arise. Prescriptions: Amoxicillin 875 mg PO Q8HR #30 tablet Fluticasone Nasal [place] [Flonase Nasal [place]] 1 spray EA NOSTRIL DAILY #1 bottle Is patient prescribed a controlled substance at d/c from ED?: No Referrals: Sheree Sands MD [Primary Care Provider] - 1-2 days Time of Disposition: :04
== END 2017-11-18 20:12 | disposition home or self-care (01) ==
LOC: EC 19:22
DX: H65.192 Other acute nonsuppurative otitis media, left ear (principal); J45.909 Unspecified asthma, uncomplicated; Z79.899 Other long term (current) drug therapy
CPT/HCPCS: 99282

== ENCOUNTER 2018-08-17 19:49 | Observation (INO) | payer OTHER ==
[2018-08-17] MEDS ORDERED: ALBUTEROL NEBULIZED 2.5 MG/3 ML INHALATION STA (19:52)
[2018-08-17] MEDS ORDERED: SODIUM CHLORIDE 0.9% 1,000 ML IV STA ×2 (19:52)
[2018-08-17] MEDS ORDERED: methylPREDNISolone SOD SUCCI 125 MG/2 ML VIAL IV STA (19:52)
[2018-08-17] MEDS ORDERED: TERBUTALINE 1 MG/ML VIAL SQ STA (19:52)
[2018-08-17] MEDS ORDERED: IPRATROPIUM 0.5 MG/2.5 ML NEBU INHALATION STA (19:52)
[2018-08-17] MEDS ORDERED: IPRATROPIUM-ALBUTEROL 3 ML NEB INHALATION STA (19:54)
--- NOTE | 2018-08-17 20:15 | ED ---
SOB HPI - General Chief Complaint: Shortness of Breath Stated Complaint: CARI Hx Asthma Time Seen by Provider: 08/17/18 19:51 Source: patient, RN notes reviewed, old records reviewed Mode of arrival: EMS Limitations: no limitations - History of Present Illness Initial Comments: This is a 38-year-old female the ER for evaluation severe asthma attack. Monisha bility to catch patient's breath. Patient's brought in by EMS in severe distress secondary to shortness of breath, not smoke and not with any chemical or known exposure. Patient has severe shortness breath or chest pain with exertion. Symptoms began today and progressively worsened felt the day despite patient's at home breathing treatments. Patient currently denies chest pain no fevers MD Complaint: shortness of breath, anxiety -: hour(s) Severity: severe Severity scale (1-10): 10 Quality: other (No pain) Consistency: constant Improves With: oxygen, rest, bronchodilators Worsens With: exertion Known History Of: COPD, asthma Context: recent URI Associated Symptoms: cough, sputum production Treatments Prior to Arrival: none - Related Data Home Medications Medication Instructions Recorded Confirmed Albuterol Nebulized [Ventolin 2.5 mg INHALATION RT-Q4H PRN 04/30/17 08/17/18 Nebulized] Albuterol Inhaler [Ventolin Hfa 2 puff INHALATION RT-Q6H PRN 06/22/17 08/17/18 Inhaler] Budesonide [Pulmicort Flexhaler] 2 puff INHALATION RT-BID 08/17/18 08/17/18 Montelukast [Singulair] 5 mg PO PC-SUPPER 08/17/18 08/17/18 Prazosin [Minipress] 1 mg PO HS 08/17/18 08/17/18 Allergies Allergy/AdvReac Type Severity Reaction Status Date / Time No Known Allergies Allergy Verified 08/17/18 19:59 Review of Systems ROS Statement: Those systems with pertinent positive or pertinent negative responses have been documented in the HPI. ROS Other: All systems not noted in ROS Statement are negative. Past Medical History Past Medical History: Asthma, Diabetes Mellitus History of Any Multi-Drug Resistant Organisms: None Reported Additional Past Surgical History / Comment(s): ovarian cyst Past Psychological History: Anxiety Smoking Status: Never smoker Past Alcohol Use History: None Reported Past Drug Use History: None Reported General Exam Limitations: no limitations General appearance: alert, in no apparent distress, anxious Head exam: Present: atraumatic, normocephalic, normal inspection Eye exam: Present: normal appearance, PERRL, EOMI. Absent: scleral icterus, conjunctival injection, periorbital swelling ENT exam: Present: normal exam, mucous membranes moist Neck exam: Present: normal inspection. Absent: tenderness, meningismus, lymphadenopathy Respiratory exam: Present: respiratory distress, wheezes, accessory muscle use, decreased breath sounds, prolonged expiratory. Absent: rales, rhonchi, stridor Cardiovascular Exam: Present: regular rate, normal rhythm, normal heart sounds. Absent: systolic murmur, diastolic murmur, rubs, gallop, clicks GI/Abdominal exam: Present: soft, normal bowel sounds. Absent: distended, tenderness, guarding, rebound, rigid Extremities exam: Present: normal inspection, full ROM, normal capillary refill. Absent: tenderness, pedal edema, joint swelling, calf tenderness Back exam: Present: normal inspection Neurological exam: Present: alert, oriented X3, CN II-XII intact Psychiatric exam: Present: normal affect, normal mood Skin exam: Present: warm, dry, intact, normal color. Absent: rash Course Vital Signs 08/17/18 08/17/18 08/17/18 19:50 20:03 20:04 Temperature 98.5 F Pulse Rate 88 89 Respiratory 28 H 28 H Rate Blood Pressure 112/78 O2 Sat by Pulse 97 Oximetry 08/17/18 08/17/18 08/17/18 20:22 20:57 21:16 Temperature Pulse Rate 89 101 H 89 Respiratory Rate Blood Pressure O2 Sat by Pulse Oximetry - Reevaluation(s) Reevaluation #1: 08/17/18 21:41 Record reviewed Reevaluation #2: 08/17/18 21:41 Patient is mildly improved since she's had multiple prolonged breathing treatment Medical Decision Making - Medical Decision Making 38 female the ER for evaluation will admit for severe asthma exacerbation, breathing treatments steroids and IV hydration - Lab Data Result diagrams: 08/17/18 20:00 08/17/18 20:00 Lab Results 08/17/18 08/17/18 08/17/18 Range/Units 20:00 20:00 20:00 WBC 10.6 (3.8-10.6) k/uL RBC 4.38 (3.80-5.40) m/uL Hgb 13.2 (11.4-16.0) gm/dL Hct 38.4 (34.0-46.0) % MCV 87.7 (80.0-100.0) fL MCH 30.2 (25.0-35.0) pg MCHC 34.4 (31.0-37.0) g/dL RDW 13.2 (11.5-15.5) % Plt Count 175 (150-450) k/uL Neutrophils % 61 % Lymphocytes % 30 % Monocytes % 5 % Eosinophils % 2 % Basophils % 0 % Neutrophils # 6.4 (1.3-7.7) k/uL Lymphocytes # 3.2 (1.0-4.8) k/uL Monocytes # 0.5 (0-1.0) k/uL Eosinophils # 0.2 (0-0.7) k/uL Basophils # 0.0 (0-0.2) k/uL PT (9.0-12.0) sec INR (<1.2) APTT (22.0-30.0) sec Sodium 137 (137-145) mmol/L Potassium 4.4 (3.5-5.1) mmol/L Chloride 106 (98-107) mmol/L Carbon Dioxide 20 L (22-30) mmol/L Anion Gap 11 mmol/L BUN 23 H (7-17) mg/dL Creatinine 1.17 H (0.52-1.04) mg/dL Est GFR (CKD-EPI)AfAm 68 (>60 ml/min/1.73 sqM) Est GFR (CKD-EPI)NonAf 59 (>60 ml/min/1.73 sqM) Glucose 109 H (74-99) mg/dL Calcium 9.3 (8.4-10.2) mg/dL Magnesium 1.8 (1.6-2.3) mg/dL Total Bilirubin 0.4 (0.2-1.3) mg/dL AST 19 (14-36) U/L ALT 20 (9-52) U/L Alkaline Phosphatase 63 (38-126) U/L Troponin I (0.000-0.034) ng/mL NT-Pro-B Natriuret Pep 18 pg/mL Total Protein 7.1 (6.3-8.2) g/dL Albumin 4.2 (3.5-5.0) g/dL 08/17/18 08/17/18 Range/Units 20:00 21:12 WBC (3.8-10.6) k/uL RBC (3.80-5.40) m/uL Hgb (11.4-16.0) gm/dL Hct (34.0-46.0) % MCV (80.0-100.0) fL MCH (25.0-35.0) pg MCHC (31.0-37.0) g/dL RDW (11.5-15.5) % Plt Count (150-450) k/uL Neutrophils % % Lymphocytes % % Monocytes % % Eosinophils % % Basophils % % Neutrophils # (1.3-7.7) k/uL Lymphocytes # (1.0-4.8) k/uL Monocytes # (0-1.0) k/uL Eosinophils # (0-0.7) k/uL Basophils # (0-0.2) k/uL PT 10.5 (9.0-12.0) sec INR 1.0 (<1.2) APTT 24.7 (22.0-30.0) sec Sodium (137-145) mmol/L Potassium (3.5-5.1) mmol/L Chloride (98-107) mmol/L Carbon Dioxide (22-30) mmol/L Anion Gap mmol/L BUN (7-17) mg/dL Creatinine (0.52-1.04) mg/dL Est GFR (CKD-EPI)AfAm (>60 ml/min/1.73 sqM) Est GFR (CKD-EPI)NonAf (>60 ml/min/1.73 sqM) Glucose (74-99) mg/dL Calcium (8.4-10.2) mg/dL Magnesium (1.6-2.3) mg/dL Total Bilirubin (0.2-1.3) mg/dL AST (14-36) U/L ALT (9-52) U/L Alkaline Phosphatase (38-126) U/L Troponin I <0.012 (0.000-0.034) ng/mL NT-Pro-B Natriuret Pep pg/mL Total Protein (6.3-8.2) g/dL Albumin (3.5-5.0) g/dL - EKG Data -: EKG Interpreted by Me (EKG shows sinus rhythm rate of 73, NC 142, QRS 84, QTc 412) - Radiology Data Radiology results: report reviewed (Chest x-rays negative for acute disease), image reviewed Disposition Clinical Impression: Asthma with exacerbation, Asthma with status asthmaticus Disposition: ADMITTED IP TO THIS [facility] Condition: Fair Is patient prescribed a controlled substance at d/c from ED?: No Referrals: Sheree Sands MD [Primary Care Provider] - 1-2 days
[2018-08-17 20:20] LABS: Basophils % (A) 0 %; Eosinophils # (A) 0.2 k/uL (0-0.7); Eosinophils % (A) 2 %; HCT 38.4 % (34.0-46.0); HGB 13.2 gm/dL (11.4-16.0); Lymphocytes # (A) 3.2 k/uL (1.0-4.8); Lymphocytes % (A) 30 %; MCH 30.2 pg (25.0-35.0); MCHC 34.4 g/dL (31.0-37.0); MCV 87.7 fL (80.0-100.0); Monocytes # (A) 0.5 k/uL (0-1.0); Monocytes % (A) 5 %; Neutrophils # (A) 6.4 k/uL (1.3-7.7); Neutrophils % (A) 61 %; Platelet Count 175 k/uL (150-450); RBC 4.38 m/uL (3.80-5.40); RDW 13.2 % (11.5-15.5); WBC 10.6 k/uL (3.8-10.6)
[2018-08-17 20:24] LABS: Albumin 4.2 g/dL (3.5-5.0); Calcium 9.3 mg/dL (8.4-10.2); Magnesium 1.8 mg/dL (1.6-2.3); Potassium 4.4 mmol/L (3.5-5.1); Total Bilirubin 0.4 mg/dL (0.2-1.3); Total Protein 7.1 g/dL (6.3-8.2)
[2018-08-17] MEDS: MAGNESIUM SULFATE-D5W PMX 1 GM in DEXTROSE/WATER 1 100ML.BAG IVPB SCH ×2 (20:25→23:17)
[2018-08-17 21:28] LABS: Partial Thromboplastin Time 24.7 sec (22.0-30.0); Prothrombin Time 10.5 sec (9.0-12.0)
--- NOTE | 2018-08-17 23:20 | XR ---
EXAM: XR Chest, 2 Views CLINICAL HISTORY: ITS.REASON XR Reason: difficulty breathing TECHNIQUE: Frontal and lateral views of the chest. COMPARISON: No relevant prior studies available. FINDINGS: Lungs: Coarse lung markings. Potential bronchitis. No consolidation. Pleural space: Unremarkable. No pneumothorax. Heart: Unremarkable. No cardiomegaly. Mediastinum: Unremarkable. Bones/joints: Unremarkable. IMPRESSION: Coarse lung markings. Potential bronchitis. No consolidation.
[2018-08-17 23:52] VITALS: BMI 46.4
--- NOTE | 2018-08-18 00:36 | P.HPIM ---
History of Present Illness H&P Date: 08/18/18 The patient is a 38 yo F with a PMH of asthma (previously intubated in 2008) presented to the ED for shortness of breath and wheezing that started earlier today at 3 pm. The patient reports that the breathing had gradually gotten worse throughout the day though she noticed it acutely worsened while she was riding in a public transit bus at 3 pm, the non emergency services ambulance driver of whom then activated EMS. Upon arrival to the ED, the patient was noted to have significant wheezing which improved with bronchodilator therapy. The patient reports compliance with her albuterol inhaler and nebulizers along with her pulmicort inhaler. She reported feeling palpitations after the albuterol therapy which she notes happens often. She otherwise denied fever, chills, or chest pain. Denied abdominal pain, nausea, or vomiting. The patient underwent an extensive evaluation in the ED w/ EKG as reviewed by me revealing a NSR @ [address]-T wave changes. CXR showing coarse lung markings, WBC coun 10.6, Troponin < 0.012, BUN 23, and Creatinine 1.17. The patient was given duonebs and IV steroids and was admitted to the medicine service for further management. Review of Systems Pertinent positives and negatives as discussed in HPI, a complete review of systems was performed and all other systems are negative. Past Medical History Past Medical History: Asthma History of Any Multi-Drug Resistant Organisms: None Reported Additional Past Surgical History / Comment(s): ovarian cyst Past Anesthesia/Blood Transfusion Reactions: No Reported Reaction Past Psychological History: Anxiety Smoking Status: Never smoker Past Alcohol Use History: None Reported Past Drug Use History: None Reported - Past Family History Mother Family Medical History: Hypertension, Thyroid Disorder Sister(s) Family Medical History: Asthma, COPD Medications and Allergies Home Medications Medication Instructions Recorded Confirmed Type Albuterol Nebulized [Ventolin 2.5 mg INHALATION RT-Q4H PRN 04/30/17 08/17/18 History Nebulized] Albuterol Inhaler [Ventolin Hfa 2 puff INHALATION RT-Q6H PRN 06/22/17 08/17/18 History Inhaler] Budesonide [Pulmicort Flexhaler] 2 puff INHALATION RT-BID 08/17/18 08/17/18 History Allergies Allergy/AdvReac Type Severity Reaction Status Date / Time No Known Allergies Allergy Verified 08/17/18 19:59 Physical Exam Vitals: Vital Signs Temp Pulse Pulse Resp BP BP Pulse Ox 08/17/18 23:47 98.5 F 104 H 22 136/78 96 08/17/18 22:42 101 H 24 120/68 93 L 08/17/18 22:00 108 H 32 H 112/78 08/17/18 21:16 89 08/17/18 20:57 101 H 08/17/18 20:22 89 08/17/18 20:04 89 08/17/18 20:03 28 H 08/17/18 19:50 98.5 F 88 28 H 112/78 97 Intake and Output 08/17/18 08/17/18 08/18/18 14:59 22:59 06:59 Other: Weight 130.5 kg 126.6 kg General: non toxic, no distress, appears at stated age, morbidly obese Derm: no unusual rashes/lesions no unusual ecchymoses, warm, dry Head: atraumatic, normocephalic, symmetric Eyes: EOMI, no lid lag, anicteric sclera, pupils equal round reactive to light ENT: Nose and ears atraumatic, no thrush, no pharyngeal erythema Neck: No thyromegaly, no cervical lymphadenopathy, trachea midline, supple Mouth: no lip lesion, mucus membranes moist Cardiovascular: S1S2 reg, no murmur, positive posterior tibial pulse bilateral, no edema, capillary refill less than 2 seconds Lungs: Diffuse wheezing bilaterally, with decent air entry, no accessory muscle use Abdominal: soft, nontender to palpation, no guarding, no appreciable organomegaly, normal bowel sounds Ext: no gross muscle atrophy, muscle strength 5 out of 5 in all 4 extremities grossly, no contractures, Neuro: CN II-XI grossly intact, light touch intact all 4 extremities, finger to nose within normal limits, Psych: Alert, oriented, appropriate affect Results CBC & Chem 7: 08/17/18 20:00 08/17/18 20:00 Labs: Abnormal Lab Results - Last 24 Hours (Table) 08/17/18 Range/Units 20:00 Carbon Dioxide 20 L (22-30) mmol/L BUN 23 H (7-17) mg/dL Creatinine 1.17 H (0.52-1.04) mg/dL Glucose 109 H (74-99) mg/dL Thrombosis Risk Factor Assmnt - Choose All That Apply Each Factor Represents 1 point: Obesity (BMI >25) Other Risk Factors: No Thrombosis Risk Factor Assessment Total Risk Factor Score: 1 Thrombosis Risk Factor Assessment Level: Low Risk Assessment and Plan Plan: Acute asthma exacerbation -DuoNeb's -IV Solu-Medrol -Supplemental oxygen Azotemia -Monitor BMP DVT//GI prophylaxis -Heparin -Protonix The patient is admitted with an anticipated greater than 2 midnight stay for evaluation of asthma CODE STATUS:Full Code Discussed with: Patient Anticipated discharge date: 08/20/[address]: Home A total of 35 minutes was spent on the care of this complex patient more than 50% of the time was spent in counseling and care coordination.
[2018-08-18] MEDS: methylPREDNISolone SOD SUCCI 125 MG/2 ML VIAL IV SCH ×3 (00:46→12:14)
[2018-08-18] MEDS ORDERED: PANTOPRAZOLE 40 MG TABLET PO SCH (07:30)
[2018-08-18] MEDS ORDERED: BUDESONIDE 1 MG/2 ML NEBU INHALATION SCH (08:00)
[2018-08-18] MEDS ORDERED: ALBUTEROL NEBULIZED 2.5 MG/3 ML INHALATION SCH (08:00)
[2018-08-18] MEDS ORDERED: HEPARIN SODIUM,PORCINE 5,000 UNIT/ML 1 ML VIAL SQ SCH (08:00)
[2018-08-18 08:47] LABS: HCT 37.5 % (34.0-46.0); HGB 12.3 gm/dL (11.4-16.0); MCH 29.6 pg (25.0-35.0); MCHC 32.8 g/dL (31.0-37.0); MCV 90.3 fL (80.0-100.0); Mean Platelet Volume 6.8; Platelet Count 237 k/uL (150-450); RBC 4.16 m/uL (3.80-5.40); RDW 13.2 % (11.5-15.5); WBC 15.4 k/uL (3.8-10.6)
[2018-08-18] MEDS: IPRATROPIUM-ALBUTEROL 3 ML NEB INHALATION SCH ×2 (09:04→12:29)
[2018-08-18 09:08] LABS: Anion Gap 10 mmol/L; Blood Urea Nitrogen 25 mg/dL (7-17); Calcium 9.3 mg/dL (8.4-10.2); Carbon Dioxide 21 mmol/L (22-30); Chloride 107 mmol/L (98-107); Glucose 177 mg/dL (74-99); Potassium 4.4 mmol/L (3.5-5.1); Sodium 138 mmol/L (137-145)
[2018-08-18] MEDS: SODIUM CHLORIDE 0.9% 1,000 ML IV SCH ×2 (09:57)
[2018-08-18 12:48] VITALS: BP 112/72; RESP 18; TEMP 97.4
[2018-08-18 12:51] VITALS: PULSE 92
--- NOTE | 2018-08-18 13:13 | P.DS ---
Providers Date of admission: 08/17/18 21:40 Expected date of discharge: 08/18/18 Attending physician: Tank Walter MD Primary care physician: [facility] Course: final diagnosis at discharge Acute asthma attack Severe uncontrolled asthma Hospital course The patient is a 38 yo F with a PMH of asthma (previously intubated in 2008) , and 8 visits to the ED over the last year, she was last hospitalized in november 2017 (9-10 months ago) , presented to the ED for shortness of breath and wheezing . The patient reports that the breathing had gradually gotten worse throughout the day though she noticed it acutely worsened while she was riding in a public transit bus , the courier driver of whom then activated EMS. Upon arrival to the ED, the patient was noted to have significant wheezing which improved with bronchodilator therapy. The patient reports compliance with her albuterol inhaler and nebulizers but poor compliance with her preventative therapy with pulmicort inhaler. She reported feeling palpitations after the albuterol therapy which she notes happens often. She otherwise denied fever, chills, or chest pain. Denied abdominal pain, nausea, or vomiting. Patient was given IV steroids and maintained on nebulizer inhalers. I had prolonged discussion with the patient explaining to her the difference between rescue inhalers and preventative maintenance therapy she verbalized understanding. The plan was to discharge her home in stable clinical condition we performed peak expiratory flow and she was at 80% of her predicted peak expiratory flow for normal female at her age and height. I explained to her if she drops to 50% she would require to come back to the hospital if there is no improvement after using the nebulizer. She would be able to identify her personal best peak flow once she had here to the maintenance therapy and her symptoms are well-controlled. Patient was seen and examined on day of discharge Constitutional: vital signs stable, Not in acute distress, pleasant, conversant Lungs: Clear to auscultation bilaterally, clear to percussion, normal respiratory effort no use of accessory muscles Cardiovascular: Regular rate and rhythm, no murmurs, no gallops, no rubs, no peripheral edema Gastrointestinal: Soft, no tenderness to palpation, no palpable hepatosplenomegally, bowel sounds positive, no abdominal wall hernias Extremities: No digital cyanosis or clubbing, peripheral pulses palpable and equal over bilateral radial arteries and dorsalis pedis artery, no calf muscle tenderness Psych: Alert, oriented to place, person and time, appropriate affect, intact judgment Follow-up with PCP Prescriptions sent to preferred pharmacy Patient educated regarding using metered inhaler, regular inhalers, and the peak expiratory flow, she was also educated regarding interpretation of the peak expiratory flow and how to manage. This was included in her discharge papers. Patient verbalized understanding of the above plan. 40 minutes were spent discharging this patient, and more than 50% of the time was spent in counseling the patient and family and in coordinating care. Patient Condition at Discharge: Good Plan - Discharge Summary Discharge Rx Participant: Yes New Discharge Prescriptions: New predniSONE 50 mg PO DAILY #5 tab Budesonide-Formot 160-4.5 Mcg [Symbicort 160-4.5 Mcg Inhaler] 2 puff INHALATION BID #1 inhaler Continue Albuterol Nebulized [Ventolin Nebulized] 2.5 mg INHALATION RT-Q4H PRN PRN Reason: Shortness Of Breath Albuterol Inhaler [Ventolin Hfa Inhaler] 2 puff INHALATION RT-Q6H PRN #1 inhaler PRN Reason: Shortness Of Breath Discontinued Budesonide [Pulmicort Flexhaler] 2 puff INHALATION RT-BID Discharge Medication List Albuterol Nebulized [Ventolin Nebulized] 2.5 mg INHALATION RT-Q4H PRN 04/30/17 [History] Albuterol Inhaler [Ventolin Hfa Inhaler] 2 puff INHALATION RT-Q6H PRN #1 inhaler 08/18/18 [Rx] Budesonide-Formot 160-4.5 Mcg [Symbicort 160-4.5 Mcg Inhaler] 2 puff INHALATION BID #1 inhaler 08/18/18 [Rx] predniSONE 50 mg PO DAILY #5 tab 08/18/18 [Rx] Follow up Appointment(s)/Referral(s): Sheree Sands MD [Primary Care Provider] - 1-2 days Patient Instructions/Handouts: How to Use a Peak Flow Meter (ED), Asthma (ED) Care Plan Goals (MU): your predicted Peak flow is 436 L/min (this is in normal women of your age and height) . Your personal best Peak flow will be determined when your asthma at its optimally controlled with regular use of your inhaler your current Peak flow is 340 L/min If your drop to 218 L/min or below with no improvement after breathing treatment (using nebulizer and rescue inhaler) , then you should come back to the hospital . once your asthma is well controlled and stable , may be a week from now then green zone would be around your personal best the yellow zone would be between 50-80% of your personal best (where you are expected to be at this point of your acute attack and you should adhere to the treatment plan i discussed with you) and red zone (where you need to come to the hospital ) is when you are at <50% of your personal best Peak expiratory flow you are currently at 80% of your predicted peak flow (340 L/min), which is pretty well at this time , indicating good control of your asthma attack. I expected these numbers to improve once you adhere to your treatment plan Discharge Disposition: HOME SELF-CARE
== END 2018-08-18 13:44 | disposition home or self-care (01) ==
LOC: EC 19:49 → INTOOBSV 21:40 → 6PED 21:40 → UNDODISIN 08-18 13:44
PROVIDERS: ADMIT Internal Medicine; ATTEND Internal Medicine
DX: J45.902 Unspecified asthma with status asthmaticus (principal); J44.9 Chronic obstructive pulmonary disease, unspecified; E11.9 Type 2 diabetes mellitus without complications; T48.6X6A Underdosing of antiasthmatics, initial encounter; Z91.128 Patient's intentional underdosing of medication regimen for other reason; F41.9 Anxiety disorder, unspecified; R79.89 Other specified abnormal findings of blood chemistry; E66.9 Obesity, unspecified; Z68.42 Body mass index [BMI] 45.0-49.9, adult; Z79.51 Long term (current) use of inhaled steroids; Z79.899 Other long term (current) drug therapy; Z87.42 Personal history of other diseases of the female genital tract; Z82.5 Family history of asthma and other chronic lower respiratory diseases; Z82.49 Family history of ischemic heart disease and other diseases of the circulatory system; Z83.49 Family history of other endocrine, nutritional and metabolic diseases
CPT/HCPCS: 96361; 96372 ×2; 96375; 96376; 96365; 96366; 99285; 36415; 94640 ×3; 94644; 93005; 83880; 80053; 80048; 83735; 84484; 85025; 85027; 85610; 85730; 71046; G0378 ×2; J3105; J1644; J2930; J3475

== ENCOUNTER 2021-01-07 18:39 | Emergency (ER) | payer OTHER ==
[2021-01-07] MEDS ORDERED: SODIUM CHLORIDE 0.9% 1,000 ML IV STA (19:12)
[2021-01-07] MEDS ORDERED: HYDROmorphone 1 MG/ML 1 ML SYRINGE IVP STA (19:12)
[2021-01-07] MEDS ORDERED: ONDANSETRON 4 MG/2 ML VIAL IVP STA (19:12)
--- NOTE | 2021-01-07 19:19 | ED ---
Abdominal Pain HPI - General Chief Complaint: Abdominal Pain Stated Complaint: abd pain Time Seen by Provider: 01/07/21 19:02 Source: patient Mode of arrival: ambulatory Limitations: no limitations - History of Present Illness Initial Comments: 40 year-old female patient presents to the emergency department for evaluation of lower abdominal pain that started this morning. Patient states that she also started her period so she does not know if it is related. Denies history of this type of pain with her periods in the past. She states the pain is sharp and stabbing. States it worsens with movement. Denies any fever, chills, Denies nausea or vomiting. Has had resection of ovarian cyst in the past, most recent was July 2020. Patient denies any recent rash, cough, shortness of breath, chest pain, diarrhea, constipation, back pain, numbness, tingling, dizziness, weakness, hematuria, dysuria, urinary urgency, urinary frequency, headache, visual changes, or any other complaints. - Related Data Home Medications Medication Instructions Recorded Confirmed Albuterol Nebulized [Ventolin 2.5 mg INHALATION RT-Q4H PRN 04/30/17 08/17/18 Nebulized] Previous Rx's Medication Instructions Recorded Albuterol Inhaler (Mhu) [Ventolin 2 puff INHALATION RT-Q6H PRN #1 08/18/18 Hfa Inhaler (Mhu)] inhaler Budesonide-Formot 160-4.5 Mcg 2 puff INHALATION BID #1 inhaler 08/18/18 [Symbicort 160-4.5 Mcg Inhaler] predniSONE 50 mg PO DAILY #5 tab 08/18/18 Allergies Allergy/AdvReac Type Severity Reaction Status Date / Time No Known Allergies Allergy Verified 01/07/21 18:52 Review of Systems ROS Statement: Those systems with pertinent positive or pertinent negative responses have been documented in the HPI. ROS Other: All systems not noted in ROS Statement are negative. Past Medical History Past Medical History: Asthma History of Any Multi-Drug Resistant Organisms: None Reported Additional Past Surgical History / Comment(s): ovarian cyst Past Anesthesia/Blood Transfusion Reactions: No Reported Reaction Past Psychological History: Anxiety Smoking Status: Never smoker Past Alcohol Use History: None Reported Past Drug Use History: None Reported - Past Family History Mother Family Medical History: Hypertension, Thyroid Disorder Sister(s) Family Medical History: Asthma, COPD General Exam Limitations: no limitations General appearance: alert, in no apparent distress, other (This is a well-develo ped, well-nourished adult female patient in no acute distress. Vital signs upon presentation are temperature 98.6F, pulse 68, respirations 18, blood pressure 130/65, pulse ox 97% on room air.) Eye exam: Present: normal appearance, PERRL, EOMI. Absent: scleral icterus, con junctival injection, periorbital swelling ENT exam: Present: normal exam, normal oropharynx, mucous membranes moist Respiratory exam: Present: normal lung sounds bilaterally. Absent: respiratory distress, wheezes, rales, rhonchi, stridor Cardiovascular Exam: Present: regular rate, normal rhythm, normal heart sounds. Absent: systolic murmur, diastolic murmur, rubs, gallop, clicks GI/Abdominal exam: Present: soft, tenderness (Right lower, suprapubic, left lower quadrant), normal bowel sounds. Absent: distended, guarding, rebound, rigid Neurological exam: Present: alert, oriented X3, CN II-XII intact Psychiatric exam: Present: normal affect, normal mood Skin exam: Present: warm, dry, intact, normal color. Absent: rash Course Vital Signs 01/07/21 01/07/21 18:52 22:41 Temperature 98.6 F 98.4 F Pulse Rate 68 66 Respiratory 18 20 Rate Blood Pressure 130/65 128/68 O2 Sat by Pulse 97 98 Oximetry Medical Decision Making - Medical Decision Making 40-year-old female patient presented to the emergency department today for evaluation of pelvic pain. Physical examination did reveal lower abdominal tenderness. Labs reviewed and did reveal white blood cell count at 12.7, neutrophils 9.7. No evidence for urinary tract infection. She has a negative for . CT abdomen and pelvis was obtained and did show evidence for a uterine fibroid and a left adnexal cyst measuring 3.7 cm. Patient's pain was resolved with IV push medication. I did discuss findings and results with her. 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 Return parameters were discussed in detail. She verbalizes understanding and agrees with this plan. Case discussed with my attending Dr. Woodson. - Lab Data Result diagrams: 01/07/21 19:59 01/07/21 19:59 Lab Results 01/07/21 01/07/21 01/07/21 Range/Units 19:59 19:59 19:59 WBC 12.7 H (3.8-10.6) k/uL RBC 4.10 (3.80-5.40) m/uL Hgb 13.3 (11.4-16.0) gm/dL Hct 37.3 (34.0-46.0) % MCV 91.0 (80.0-100.0) fL MCH 32.4 (25.0-35.0) pg MCHC 35.6 (31.0-37.0) g/dL RDW 13.2 (11.5-15.5) % Plt Count 267 (150-450) k/uL MPV 6.8 Neutrophils % 76 % Lymphocytes % 19 % Monocytes % 3 % Eosinophils % 1 % Basophils % 0 % Neutrophils # 9.7 H (1.3-7.7) k/uL Lymphocytes # 2.4 (1.0-4.8) k/uL Monocytes # 0.4 (0-1.0) k/uL Eosinophils # 0.1 (0-0.7) k/uL Basophils # 0.0 (0-0.2) k/uL Sodium (137-145) mmol/L Potassium (3.5-5.1) mmol/L Chloride (98-107) mmol/L Carbon Dioxide (22-30) mmol/L Anion Gap mmol/L BUN (7-17) mg/dL Creatinine (0.52-1.04) mg/dL Est GFR (CKD-EPI)AfAm (>60 ml/min/1.73 sqM) Est GFR (CKD-EPI)NonAf (>60 ml/min/1.73 sqM) Glucose (74-99) mg/dL Plasma Lactic Acid Saulo (0.7-2.0) mmol/L Calcium (8.4-10.2) mg/dL Total Bilirubin (0.2-1.3) mg/dL AST (14-36) U/L ALT (4-34) U/L Alkaline Phosphatase (38-126) U/L Total Protein (6.3-8.2) g/dL Albumin (3.5-5.0) g/dL Lipase (23-300) U/L Urine Color Colorless Urine Appearance Clear (Clear) Urine pH 6.0 (5.0-8.0) Ur Specific [place] 1.003 (1.001-1.035) Urine Protein Negative (Negative) Urine Glucose (UA) Negative (Negative) Urine Ketones Negative (Negative) Urine Blood Trace H (Negative) Urine Nitrite Negative (Negative) Urine Bilirubin Negative (Negative) Urine Urobilinogen <2.0 (<2.0) mg/dL Ur Leukocyte Esterase Negative (Negative) Urine WBC <1 (0-5) /hpf Urine HCG, Qual Not Detected (Not Detectd) 01/07/21 01/07/21 Range/Units 19:59 19:59 WBC (3.8-10.6) k/uL RBC (3.80-5.40) m/uL Hgb (11.4-16.0) gm/dL Hct (34.0-46.0) % MCV (80.0-100.0) fL MCH (25.0-35.0) pg MCHC (31.0-37.0) g/dL RDW (11.5-15.5) % Plt Count (150-450) k/uL MPV Neutrophils % % Lymphocytes % % Monocytes % % Eosinophils % % Basophils % % Neutrophils # (1.3-7.7) k/uL Lymphocytes # (1.0-4.8) k/uL Monocytes # (0-1.0) k/uL Eosinophils # (0-0.7) k/uL Basophils # (0-0.2) k/uL Sodium 135 L (137-145) mmol/L Potassium 4.6 (3.5-5.1) mmol/L Chloride 101 (98-107) mmol/L Carbon Dioxide 25 (22-30) mmol/L Anion Gap 9 mmol/L BUN 15 (7-17) mg/dL Creatinine 0.69 (0.52-1.04) mg/dL Est GFR (CKD-EPI)AfAm >90 (>60 ml/min/1.73 sqM) Est GFR (CKD-EPI)NonAf >90 (>60 ml/min/1.73 sqM) Glucose 102 H (74-99) mg/dL Plasma Lactic Acid Saulo 1.1 (0.7-2.0) mmol/L Calcium 10.1 (8.4-10.2) mg/dL Total Bilirubin 0.6 (0.2-1.3) mg/dL AST 30 (14-36) U/L ALT 18 (4-34) U/L Alkaline Phosphatase 56 (38-126) U/L Total Protein 7.5 (6.3-8.2) g/dL Albumin 4.4 (3.5-5.0) g/dL Lipase 167 (23-300) U/L Urine Color Urine Appearance (Clear) Urine pH (5.0-8.0) Ur Specific [place] (1.001-1.035) Urine Protein (Negative) Urine Glucose (UA) (Negative) Urine Ketones (Negative) Urine Blood (Negative) Urine Nitrite (Negative) Urine Bilirubin (Negative) Urine Urobilinogen (<2.0) mg/dL Ur Leukocyte Esterase (Negative) Urine WBC (0-5) /hpf Urine HCG, Qual (Not Detectd) - Radiology Data Radiology results: report reviewed, image reviewed CT abdomen and pelvis with contrast was obtained. Report was reviewed in its entirety. Impression by Dr. Flores shows clearing of the diverticulitis of the proximal sigmoid colon compared to old exam. There is no evidence of diverticulitis. There are multiple sigmoid diverticula. There is left adnexal cyst consistent with ovarian cyst and decreased compared to old exam, measuring 3.7 cm. Fundal fibroid increased compared to old exam. 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 Return to the emergency department for any new, worsening, or concerning symptoms. Is patient prescribed a controlled substance at d/c from ED?: No Referrals: None,Stated [Primary Care Provider] - 1-2 days Time of Disposition: 21:36
[2021-01-07 20:10] LABS: Appearance,Urine Clear (Clear); Bilirubin,Urine Negative (Negative); Blood,Urine Trace (Negative); Color,Urine Colorless; Glucose,Urine (UA) Negative (Negative); Ketones,Urine Negative (Negative); Leukocyte Esterase,Urine Negative (Negative); Nitrite,Urine Negative (Negative); Protein,Urine Negative (Negative); Specific Gravity,Urine 1.003 (1.001-1.035); Urobilinogen,Urine <2.0 mg/dL (<2.0); WBC,Urine <1 /hpf (0-5)
[2021-01-07 20:13] LABS: Basophils % (A) 0 %; Eosinophils # (A) 0.1 k/uL (0-0.7); Eosinophils % (A) 1 %; HCT 37.3 % (34.0-46.0); HGB 13.3 gm/dL (11.4-16.0); Lymphocytes # (A) 2.4 k/uL (1.0-4.8); Lymphocytes % (A) 19 %; MCH 32.4 pg (25.0-35.0); MCHC 35.6 g/dL (31.0-37.0); Mean Platelet Volume 6.8; Monocytes # (A) 0.4 k/uL (0-1.0); Monocytes % (A) 3 %; Neutrophils # (A) 9.7 k/uL (1.3-7.7); Neutrophils % (A) 76 %; Platelet Count 267 k/uL (150-450); RDW 13.2 % (11.5-15.5); WBC 12.7 k/uL (3.8-10.6)
[2021-01-07 20:26] LABS: ALT 18 U/L (4-34); African American GFR (CKD) >90 (>60 ml/min/1.73 sqM); Anion Gap 9 mmol/L; Blood Urea Nitrogen 15 mg/dL (7-17); Calcium 10.1 mg/dL (8.4-10.2); Carbon Dioxide 25 mmol/L (22-30); Chloride 101 mmol/L (98-107); Glucose 102 mg/dL (74-99); Lipase 167 U/L (23-300); Non-African American GFR(CKD) >90 (>60 ml/min/1.73 sqM); Sodium 135 mmol/L (137-145); Total Bilirubin 0.6 mg/dL (0.2-1.3)
[2021-01-07 20:28] LABS: AST 30 U/L (14-36); Albumin 4.4 g/dL (3.5-5.0); Alkaline Phosphatase 56 U/L (38-126); Potassium 4.6 mmol/L (3.5-5.1); Total Protein 7.5 g/dL (6.3-8.2)
--- NOTE | 2021-01-07 21:06 | CT ---
EXAMINATION TYPE: CT abdomen pelvis w con DATE OF EXAM: 01/07/2021 COMPARISON: 08/09/2016 HISTORY: Lower abdomen pain, hx diverticulitis, ovarian cyst. CT DLP: 1822.7 mGycm Automated exposure control for dose reduction was used. CONTRAST: Performed with IV Contrast, patient injected with 100 mL of Isovue 300. Images obtained from the diaphragm to the floor the pelvis with IV contrast. Lung bases are clear. There is no pleural effusion. Heart size is normal. There is no pericardial eff usion. Liver spleen stomach pancreas gallbladder appear intact. The bile ducts are not dilated. There is no adrenal mass. Kidneys show satisfactory contrast opacification. There is no hydronephrosi s. There is no retroperitoneal adenopathy. Bladder distends smoothly. There is 3.[address] left adnexal [address] consistent with ovarian cyst.there is no free fluid in the pelvis. Uterus is anteverted. There is 4.5 cm mass at the uterine fundus consistent with uterine fibroid. Lum bar vertebra have normal alignment. There is no compression fracture. Posterior elements are intact. Bony pelvis is intact. Sacroiliac joints appear intact. Hip joints are intact. There is no mesenteric edema. There is no ascites or free air. There is no bowel obstruction. Appendi x appears normal. IMPRESSION: There is clearing of the diverticulitis of the proximal sigmoid colon compared to old exam. There is no evidence of diverticulitis. There are multiple sigmoid diverticula. There is left adnexal cyst consistent with ovarian cyst and decreased compared to old exam. Uterine f undal fibroid increased compared to old exam.
[2021-01-07] MEDS ORDERED: KETOROLAC 15 MG/ML 1 ML VIAL IVP STA (21:35)
[2021-01-07] MEDS ORDERED: traMADol 50 MG STARTER PACK 3 TAB BTL PO STA (21:35)
[2021-01-07 22:43] VITALS: BP 128/68; PULSE 66; RESP 20; TEMP 98.4
== END 2021-01-07 22:40 | disposition home or self-care (01) ==
LOC: EC 18:39
DX: R10.2 Pelvic and perineal pain (principal); J45.909 Unspecified asthma, uncomplicated; F41.9 Anxiety disorder, unspecified
CPT/HCPCS: 99284; 96374; 96375 ×2; 96361; 36415; 80053; 83605; 83690; 85025; 81001; 81025; 74177; J2405; J1170; J1885; Q9967

== ENCOUNTER 2021-09-22 18:29 | Emergency (ER) | payer OTHER ==
[2021-09-22 18:39] VITALS: TEMP 98.2
[2021-09-22 20:12] LABS: Appearance,Urine Clear (Clear); Bilirubin,Urine Negative (Negative); Blood,Urine Negative (Negative); Color,Urine Yellow; Glucose,Urine (UA) Negative (Negative); Ketones,Urine Negative (Negative); Leukocyte Esterase,Urine Negative (Negative); Nitrite,Urine Negative (Negative); Protein,Urine Negative (Negative); Specific Gravity,Urine 1.021 (1.001-1.035)
[2021-09-22] MEDS ORDERED: MORPHINE SULFATE 4 MG/ML SYRINGE IV STA (22:39)
[2021-09-22] MEDS ORDERED: ONDANSETRON 4 MG/2 ML VIAL IVP STA (22:39)
[2021-09-22] MEDS ORDERED: SODIUM CHLORIDE 0.9% 1,000 ML IV STA (22:39)
--- NOTE | 2021-09-22 22:41 | ED ---
Abdominal Pain HPI - General Chief Complaint: Abdominal Pain Stated Complaint: abd pain Time Seen by Provider: 09/22/21 22:36 Source: patient, RN notes reviewed, old records reviewed Mode of arrival: ambulatory Limitations: no limitations - History of Present Illness Initial Comments: This is a 41-year-old female DF for evaluation of abdominal pain. Patient is cramping sharp with pubic periumbilical abdominal pain. She states she has history of ovarian cysts little still no diarrhea no nausea no vomiting no fevers. No significant surgical history MD Complaint: abdominal pain -: hour(s) Location: periumbilical, suprapubic Radiation: suprapubic Migration to: suprapubic Severity: severe Severity scale (1-10): 8 Quality: sharp Consistency: intermittent Improves With: nothing Worsens With: nothing Associated Symptoms: nausea Treatments Prior to Arrival: other (none) - Related Data Home Medications Medication Instructions Recorded Confirmed Albuterol Nebulized [Ventolin 2.5 mg INHALATION RT-Q4H PRN 04/30/17 08/17/18 Nebulized] Previous Rx's Medication Instructions Recorded Albuterol Inhaler (Mhu) [Ventolin 2 puff INHALATION RT-Q6H PRN #1 08/18/18 Hfa Inhaler (Mhu)] inhaler Budesonide-Formot 160-4.5 Mcg 2 puff INHALATION BID #1 inhaler 08/18/18 [Symbicort 160-4.5 Mcg Inhaler] predniSONE 50 mg PO DAILY #5 tab 08/18/18 Allergies Allergy/AdvReac Type Severity Reaction Status Date / Time No Known Allergies Allergy Verified 01/07/21 18:52 Review of Systems ROS Statement: Those systems with pertinent positive or pertinent negative responses have been documented in the HPI. ROS Other: All systems not noted in ROS Statement are negative. Past Medical History Past Medical History: Asthma History of Any Multi-Drug Resistant Organisms: None Reported Additional Past Surgical History / Comment(s): ovarian cyst Past Anesthesia/Blood Transfusion Reactions: No Reported Reaction Past Psychological History: Anxiety Smoking Status: Never smoker Past Alcohol Use History: None Reported Past Drug Use History: None Reported - Past Family History Mother Family Medical History: Hypertension, Thyroid Disorder Sister(s) Family Medical History: Asthma, COPD General Exam Limitations: no limitations General appearance: alert, in no apparent distress Head exam: Present: atraumatic, normocephalic, normal inspection Eye exam: Present: normal appearance, PERRL, EOMI. Absent: scleral icterus, conjunctival injection, periorbital swelling ENT exam: Present: normal exam, mucous membranes moist Neck exam: Present: normal inspection. Absent: tenderness, meningismus, l ymphadenopathy Respiratory exam: Present: normal lung sounds bilaterally. Absent: respiratory distress, wheezes, rales, rhonchi, stridor Cardiovascular Exam: Present: regular rate, normal rhythm, normal heart sounds. Absent: systolic murmur, diastolic murmur, rubs, gallop, clicks GI/Abdominal exam: Present: soft, tenderness, guarding, normal bowel sounds. Absent: distended, rebound, rigid Extremities exam: Present: normal inspection, full ROM, normal capillary refill. Absent: tenderness, pedal edema, joint swelling, calf tenderness Back exam: Present: normal inspection Neurological exam: Present: alert, oriented X3, CN II-XII intact Psychiatric exam: Present: normal affect, normal mood Skin exam: Present: warm, dry, intact, normal color. Absent: rash Course Vital Signs 09/22/21 09/22/21 18:36 23:13 Temperature 98.2 F Pulse Rate 71 70 Respiratory 16 18 Rate Blood Pressure 120/74 121/64 O2 Sat by Pulse 96 96 Oximetry - Reevaluation(s) Reevaluation #1: 09/22/21 Medical record is reviewed Patient symptoms are improved here in the ER Patient informed of results and questions answered Medical Decision Making - Medical Decision Making 40 female to the emergency department for abdominal pain does have left ovarian cyst pain is well-controlled no other findings patient can be discharged home - Lab Data Result diagrams: 09/22/21 23:10 09/22/21 23:12 Lab Results 09/22/21 09/22/21 09/22/21 Range/Units 20:01 20:01 23:10 WBC 10.4 (3.8-10.6) k/uL RBC 4.26 (3.80-5.40) m/uL Hgb 13.3 (11.4-16.0) gm/dL Hct 39.0 (34.0-46.0) % MCV 91.6 (80.0-100.0) fL MCH 31.2 (25.0-35.0) pg MCHC 34.0 (31.0-37.0) g/dL RDW 13.0 (11.5-15.5) % Plt Count 241 (150-450) k/uL MPV 7.0 Neutrophils % 60 % Lymphocytes % 34 % Monocytes % 4 % Eosinophils % 1 % Basophils % 0 % Neutrophils # 6.3 (1.3-7.7) k/uL Lymphocytes # 3.5 (1.0-4.8) k/uL Monocytes # 0.4 (0-1.0) k/uL Eosinophils # 0.1 (0-0.7) k/uL Basophils # 0.0 (0-0.2) k/uL Sodium (137-145) mmol/L Potassium (3.5-5.1) mmol/L Chloride (98-107) mmol/L Carbon Dioxide (22-30) mmol/L Anion Gap mmol/L BUN (7-17) mg/dL Creatinine (0.52-1.04) mg/dL Est GFR (CKD-EPI)AfAm (>60 ml/min/1.73 sqM) Est GFR (CKD-EPI)NonAf (>60 ml/min/1.73 sqM) Glucose (74-99) mg/dL Calcium (8.4-10.2) mg/dL Total Bilirubin (0.2-1.3) mg/dL AST (14-36) U/L ALT (4-34) U/L Alkaline Phosphatase (38-126) U/L Troponin I (0.000-0.034) ng/mL Total Protein (6.3-8.2) g/dL Albumin (3.5-5.0) g/dL Lipase (23-300) U/L Urine Color Yellow Urine Appearance Clear (Clear) Urine pH 7.0 (5.0-8.0) Ur Specific [place] 1.021 (1.001-1.035) Urine Protein Negative (Negative) Urine Glucose (UA) Negative (Negative) Urine Ketones Negative (Negative) Urine Blood Negative (Negative) Urine Nitrite Negative (Negative) Urine Bilirubin Negative (Negative) Urine Urobilinogen 2.0 (<2.0) mg/dL Ur Leukocyte Esterase Negative (Negative) Urine HCG, Qual Not Detected (Not Detectd) 09/22/21 09/22/21 09/22/21 Range/Units 23:12 23:12 23:35 WBC (3.8-10.6) k/uL RBC (3.80-5.40) m/uL Hgb (11.4-16.0) gm/dL Hct (34.0-46.0) % MCV (80.0-100.0) fL MCH (25.0-35.0) pg MCHC (31.0-37.0) g/dL RDW (11.5-15.5) % Plt Count (150-450) k/uL MPV Neutrophils % % Lymphocytes % % Monocytes % % Eosinophils % % Basophils % % Neutrophils # (1.3-7.7) k/uL Lymphocytes # (1.0-4.8) k/uL Monocytes # (0-1.0) k/uL Eosinophils # (0-0.7) k/uL Basophils # (0-0.2) k/uL Sodium 136 L (137-145) mmol/L Potassium 3.8 (3.5-5.1) mmol/L Chloride 100 (98-107) mmol/L Carbon Dioxide 27 (22-30) mmol/L Anion Gap 9 mmol/L BUN 16 (7-17) mg/dL Creatinine 0.82 (0.52-1.04) mg/dL Est GFR (CKD-EPI)AfAm >90 (>60 ml/min/1.73 sqM) Est GFR (CKD-EPI)NonAf 89 (>60 ml/min/1.73 sqM) Glucose 127 H (74-99) mg/dL Calcium 10.0 (8.4-10.2) mg/dL Total Bilirubin 0.4 (0.2-1.3) mg/dL AST 25 (14-36) U/L ALT 22 (4-34) U/L Alkaline Phosphatase 58 (38-126) U/L Troponin I <0.012 (0.000-0.034) ng/mL Total Protein 7.6 (6.3-8.2) g/dL Albumin 4.5 (3.5-5.0) g/dL Lipase 219 (23-300) U/L Urine Color Yellow Urine Appearance Clear (Clear) Urine pH 7.0 (5.0-8.0) Ur Specific [place] 1.021 (1.001-1.035) Urine Protein Negative (Negative) Urine Glucose (UA) Negative (Negative) Urine Ketones Negative (Negative) Urine Blood Negative (Negative) Urine Nitrite Negative (Negative) Urine Bilirubin Negative (Negative) Urine Urobilinogen 2.0 (<2.0) mg/dL Ur Leukocyte Esterase Negative (Negative) Urine HCG, Qual (Not Detectd) - Radiology Data Radiology results: report reviewed (CT of the abdomen and pelvis is negative for acute disease), image reviewed Disposition Clinical Impression: Abdominal pain Disposition: HOME SELF-CARE Condition: Good Instructions (If sedation given, give patient instructions): Abdominal Pain (ED) Is patient prescribed a controlled substance at d/c from ED?: No Referrals: None,Stated [Primary Care Provider] - 1-2 days
[2021-09-22 23:15] VITALS: BP 121/64; PULSE 70; RESP 18
[2021-09-22 23:50] LABS: ALT 22 U/L (4-34); AST 25 U/L (14-36); African American GFR (CKD) >90 (>60 ml/min/1.73 sqM); Albumin 4.5 g/dL (3.5-5.0); Alkaline Phosphatase 58 U/L (38-126); Anion Gap 9 mmol/L; Blood Urea Nitrogen 16 mg/dL (7-17); Carbon Dioxide 27 mmol/L (22-30); Chloride 100 mmol/L (98-107); Glucose 127 mg/dL (74-99); Lipase 219 U/L (23-300); Non-African American GFR(CKD) 89 (>60 ml/min/1.73 sqM); Potassium 3.8 mmol/L (3.5-5.1); Sodium 136 mmol/L (137-145); Total Bilirubin 0.4 mg/dL (0.2-1.3); Total Protein 7.6 g/dL (6.3-8.2)
[2021-09-23 00:06] LABS: Appearance,Urine Clear (Clear); Bilirubin,Urine Negative (Negative); Blood,Urine Negative (Negative); Color,Urine Yellow; Glucose,Urine (UA) Negative (Negative); Ketones,Urine Negative (Negative); Leukocyte Esterase,Urine Negative (Negative); Nitrite,Urine Negative (Negative); Protein,Urine Negative (Negative); Specific Gravity,Urine 1.021 (1.001-1.035)
[2021-09-23 00:17] LABS: Basophils % (A) 0 %; Eosinophils # (A) 0.1 k/uL (0-0.7); Eosinophils % (A) 1 %; HGB 13.3 gm/dL (11.4-16.0); Lymphocytes # (A) 3.5 k/uL (1.0-4.8); Lymphocytes % (A) 34 %; MCH 31.2 pg (25.0-35.0); MCV 91.6 fL (80.0-100.0); Monocytes # (A) 0.4 k/uL (0-1.0); Monocytes % (A) 4 %; Neutrophils # (A) 6.3 k/uL (1.3-7.7); Neutrophils % (A) 60 %; Platelet Count 241 k/uL (150-450); RBC 4.26 m/uL (3.80-5.40); WBC 10.4 k/uL (3.8-10.6)
--- NOTE | 2021-09-23 00:23 | CT ---
EXAMINATION TYPE: CT abdomen pelvis w con DATE OF EXAM: 09/22/2021 COMPARISON: 01/07/2021 HISTORY: lower abdominal pain. hx of diverticulitis. CT DLP: 2015.6 mGycm Automated exposure control for dose reduction was used. CONTRAST: Performed with IV Contrast, patient injected with 100ml mL of Isovue 300. Images obtained from the diaphragm to the floor the pelvis with IV contrast. The lung bases are clear of consolidation. No pleural effusion. Heart size is normal. No pericardial effusion. Liver spleen stomach pancreas and gallbladder appear intact. The bile ducts are not dilated. There is no adrenal mass. Kidneys show satisfactory contrast opacification. There is no hydronephrosis. Urete rs are not dilated. There is no retroperitoneal adenopathy. Appendix appears normal. Bladder distends smoothly. Uterus is anteverted. There is 4.5 cm cyst on the left ovary. No free fluid in the pelvis. No inguinal hernia. There is no mesenteric edema. No ascites or free air. No evidence of a bowel obstruction. Delayed kyle ges show symmetric renal excretion. Lumbar vertebra have normal alignment. Posterior elements are intact. No compression fracture. Bony p génesis is intact. The hip joints are intact. IMPRESSION: Left ovarian cyst. Normal appendix. Ovarian cyst increased in size 1 cm compared to the old exam.
== END 2021-09-23 00:42 | disposition home or self-care (01) ==
LOC: EC 18:29
DX: R10.9 Unspecified abdominal pain (principal); J45.909 Unspecified asthma, uncomplicated
CPT/HCPCS: 36415; 80053; 83690; 84484; 85025; 81003; 81025; 74177; 99284; 96374; 96361; J2270; Q9967

== ENCOUNTER 2022-01-04 16:43 | Emergency (ER) | payer OTHER ==
[2022-01-04 17:09] VITALS: TEMP 98
[2022-01-04] MEDS ORDERED: KETOROLAC 15 MG/ML 1 ML VIAL IVP STA (18:59)
[2022-01-04] MEDS ORDERED: SODIUM CHLORIDE 0.9% 1,000 ML IV STA (19:27)
[2022-01-04] MEDS ORDERED: ONDANSETRON 4 MG/2 ML VIAL IVP STA (19:27)
--- NOTE | 2022-01-04 19:28 | ED ---
Abdominal Pain HPI - General Chief Complaint: Abdominal Pain Stated Complaint: Abd pain Time Seen by Provider: 01/04/22 18:56 Source: patient, RN notes reviewed Mode of arrival: ambulatory Limitations: no limitations - History of Present Illness Initial Comments: This is a 41-year-old female who presents to the emergency department for abdominal pain and nausea. Symptoms have been present for 2 days. States that she did overeat 2 days ago and is unsure if this is causing her symptoms. She is at urgent care earlier today and was told to come to the emergency department for further evaluation due to her level of pain. States that the pain is all over her abdomen. She does have a history of diverticulitis. Denies any changes in bowel habits. Denies any fevers, chills, sore throat, cough, dyspnea, chest pain, palpitations, vomiting, diarrhea, back pain, or headaches. MD Complaint: abdominal pain Onset/Timin -: days(s) Location: diffuse Associated Symptoms: nausea - Related Data Home Medications Medication Instructions Recorded Confirmed Albuterol Nebulized [Ventolin 2.5 mg INHALATION RT-Q4H PRN 04/30/17 08/17/18 Nebulized] Previous Rx's Medication Instructions Recorded Albuterol Inhaler [Ventolin Hfa 2 puff INHALATION RT-Q6H PRN #1 08/18/18 Inhaler] inhaler Budesonide-Formot 160-4.5 Mcg 2 puff INHALATION BID #1 inhaler 08/18/18 [Symbicort 160-4.5 Mcg Inhaler] predniSONE 50 mg PO DAILY #5 tab 08/18/18 Ondansetron Odt [Zofran Odt] 4 mg PO Q8HR PRN #20 tab 01/05/22 Allergies Allergy/AdvReac Type Severity Reaction Status Date / Time No Known Allergies Allergy Verified 01/04/22 17:09 Review of Systems ROS Statement: Those systems with pertinent positive or pertinent negative responses have been documented in the HPI. ROS Other: All systems not noted in ROS Statement are negative. Past Medical History Past Medical History: Asthma History of Any Multi-Drug Resistant Organisms: None Reported Additional Past Surgical History / Comment(s): ovarian cyst Past Anesthesia/Blood Transfusion Reactions: No Reported Reaction Past Psychological History: Anxiety Smoking Status: Never smoker Past Alcohol Use History: None Reported Past Drug Use History: None Reported - Past Family History Mother Family Medical History: Hypertension, Thyroid Disorder Sister(s) Family Medical History: Asthma, COPD General Exam Limitations: no limitations General appearance: alert, in distress Head exam: Present: atraumatic, normocephalic, normal inspection Respiratory exam: Present: normal lung sounds bilaterally. Absent: respiratory distress, wheezes, rales, rhonchi, stridor Cardiovascular Exam: Present: regular rate, normal rhythm, normal heart sounds. Absent: systolic murmur, diastolic murmur, rubs, gallop, clicks GI/Abdominal exam: Present: soft, tenderness (Diffuse), guarding, normal bowel sounds. Absent: distended, rebound, rigid Neurological exam: Present: alert, oriented X3, CN II-XII intact Psychiatric exam: Present: normal affect, normal mood Skin exam: Present: warm, dry, intact, normal color. Absent: rash Course Vital Signs 01/04/22 01/05/22 17:05 01:46 Temperature 98.0 F Pulse Rate 60 78 Respiratory 20 15 Rate Blood Pressure 184/89 144/68 O2 Sat by Pulse 100 98 Oximetry Medical Decision Making - Medical Decision Making This is a 41-year-old female who presents to the emergency department for abdominal pain and nausea. Lab work reveals mild leukocytosis and acute kidney injury. The nursing staff was unable to establish an IV on the patient to administer IV fluids. Computed tomography scan of the abdomen and pelvis revealed no acute findings to explain the patient's symptoms. Gallbladder ultrasound was also obtained, revealing no acute irregularities. The patient's symptoms were managed in the emergency department and she was able to drink water without difficulty. Discussed the importance of making sure that she remains well-hydrated to improve her kidney function. Prescription for Zofran was provided. Advised she try Gas-X if she does feel bloated. Stressed the importance of following up with her primary care provider next week to have her lab work rechecked, particularly her kidney function, to make sure that it improves. Return precautions reviewed in depth, the patient is instructed to return to the emergency department with any new, worsening, or concerning symptoms. Patient verbalized understanding. This case was discussed in detail with the attending ED physician. Presentation, findings, and treatment plan discussed in detail as well. - Lab Data Result diagrams: 01/04/22 21:11 01/04/22 21:11 Lab Results 01/04/22 01/04/22 01/04/22 Range/Units 21:11 21:11 23:04 WBC 11.2 H (3.8-10.6) k/uL RBC 4.08 (3.80-5.40) m/uL Hgb 12.9 (11.4-16.0) gm/dL Hct 38.0 (34.0-46.0) % MCV 93.1 (80.0-100.0) fL MCH 31.5 (25.0-35.0) pg MCHC 33.9 (31.0-37.0) g/dL RDW 12.5 (11.5-15.5) % Plt Count 181 (150-450) k/uL MPV 7.4 Neutrophils % 76 % Lymphocytes % 15 % Monocytes % 6 % Eosinophils % 1 % Basophils % 1 % Neutrophils # 8.5 H (1.3-7.7) k/uL Lymphocytes # 1.7 (1.0-4.8) k/uL Monocytes # 0.7 (0-1.0) k/uL Eosinophils # 0.2 (0-0.7) k/uL Basophils # 0.1 (0-0.2) k/uL Sodium 138 (137-145) mmol/L Potassium 3.8 (3.5-5.1) mmol/L Chloride 101 (98-107) mmol/L Carbon Dioxide 24 (22-30) mmol/L Anion Gap 13 mmol/L BUN 20 H (7-17) mg/dL Creatinine 1.60 H (0.52-1.04) mg/dL Est GFR (CKD-EPI)AfAm 46 (>60 ml/min/1.73 sqM) Est GFR (CKD-EPI)NonAf 40 (>60 ml/min/1.73 sqM) Glucose 102 H (74-99) mg/dL Calcium 10.1 (8.4-10.2) mg/dL Total Bilirubin 0.5 (0.2-1.3) mg/dL AST 27 (14-36) U/L ALT 26 (4-34) U/L Alkaline Phosphatase 68 (38-126) U/L NT-Pro-B Natriuret Pep 115 pg/mL Total Protein 7.0 (6.3-8.2) g/dL Albumin 4.3 (3.5-5.0) g/dL Amylase 41 (30-110) U/L Lipase 175 (23-300) U/L Urine Color Urine Appearance (Clear) Urine pH (5.0-8.0) Ur Specific [place] (1.001-1.035) Urine Protein (Negative) Urine Glucose (UA) (Negative) Urine Ketones (Negative) Urine Blood (Negative) Urine Nitrite (Negative) Urine Bilirubin (Negative) Urine Urobilinogen (<2.0) mg/dL Ur Leukocyte Esterase (Negative) Urine RBC (0-5) /hpf Urine WBC (0-5) /hpf Ur Squamous Epith Cells (0-4) /hpf Urine Bacteria (None) /hpf Urine Mucus (None) /hpf Urine HCG, Qual (Not Detectd) 01/05/22 01/05/22 Range/Units 00:08 00:08 WBC (3.8-10.6) k/uL RBC (3.80-5.40) m/uL Hgb (11.4-16.0) gm/dL Hct (34.0-46.0) % MCV (80.0-100.0) fL MCH (25.0-35.0) pg MCHC (31.0-37.0) g/dL RDW (11.5-15.5) % Plt Count (150-450) k/uL MPV Neutrophils % % Lymphocytes % % Monocytes % % Eosinophils % % Basophils % % Neutrophils # (1.3-7.7) k/uL Lymphocytes # (1.0-4.8) k/uL Monocytes # (0-1.0) k/uL Eosinophils # (0-0.7) k/uL Basophils # (0-0.2) k/uL Sodium (137-145) mmol/L Potassium (3.5-5.1) mmol/L Chloride (98-107) mmol/L Carbon Dioxide (22-30) mmol/L Anion Gap mmol/L BUN (7-17) mg/dL Creatinine (0.52-1.04) mg/dL Est GFR (CKD-EPI)AfAm (>60 ml/min/1.73 sqM) Est GFR (CKD-EPI)NonAf (>60 ml/min/1.73 sqM) Glucose (74-99) mg/dL Calcium (8.4-10.2) mg/dL Total Bilirubin (0.2-1.3) mg/dL AST (14-36) U/L ALT (4-34) U/L Alkaline Phosphatase (38-126) U/L NT-Pro-B Natriuret Pep pg/mL Total Protein (6.3-8.2) g/dL Albumin (3.5-5.0) g/dL Amylase (30-110) U/L Lipase (23-300) U/L Urine Color Light Yellow Urine Appearance Clear (Clear) Urine pH 6.0 (5.0-8.0) Ur Specific [place] 1.006 (1.001-1.035) Urine Protein 2+ H (Negative) Urine Glucose (UA) Negative (Negative) Urine Ketones Negative (Negative) Urine Blood Negative (Negative) Urine Nitrite Negative (Negative) Urine Bilirubin Negative (Negative) Urine Urobilinogen <2.0 (<2.0) mg/dL Ur Leukocyte Esterase Negative (Negative) Urine RBC 1 (0-5) /hpf Urine WBC 1 (0-5) /hpf Ur Squamous Epith Cells <1 (0-4) /hpf Urine Bacteria Rare H (None) /hpf Urine Mucus Rare H (None) /hpf Urine HCG, Qual Not Detected (Not Detectd) - Radiology Data Radiology results: report reviewed, image reviewed Disposition Clinical Impression: Abdominal pain Disposition: HOME SELF-CARE Instructions (If sedation given, give patient instructions): Abdominal Pain (ED) Additional Instructions: Return to the emergency department with any new, worsening, or concerning symptoms. Take the Zofran up to every 8 hours as needed for nausea and vomiting. Make sure that you remain well-hydrated and follow-up with your primary care provider next week to have your lab work rechecked. You can try taking Gas-X for the bloating and gas build up. Prescriptions: Ondansetron Odt [Zofran Odt] 4 mg PO Q8HR PRN #20 tab PRN Reason: Nausea And Vomiting Is patient prescribed a controlled substance at d/c from ED?: No Referrals: None,Stated [Primary Care Provider] - 1-2 days
[2022-01-04 21:19] LABS: Basophils # (A) 0.1 k/uL (0-0.2); Basophils % (A) 1 %; Eosinophils # (A) 0.2 k/uL (0-0.7); Eosinophils % (A) 1 %; HGB 12.9 gm/dL (11.4-16.0); Lymphocytes # (A) 1.7 k/uL (1.0-4.8); Lymphocytes % (A) 15 %; MCH 31.5 pg (25.0-35.0); MCHC 33.9 g/dL (31.0-37.0); MCV 93.1 fL (80.0-100.0); Mean Platelet Volume 7.4; Monocytes # (A) 0.7 k/uL (0-1.0); Monocytes % (A) 6 %; Neutrophils # (A) 8.5 k/uL (1.3-7.7); Neutrophils % (A) 76 %; Platelet Count 181 k/uL (150-450); RBC 4.08 m/uL (3.80-5.40); RDW 12.5 % (11.5-15.5); WBC 11.2 k/uL (3.8-10.6)
[2022-01-04 21:25] LABS: Albumin 4.3 g/dL (3.5-5.0); Calcium 10.1 mg/dL (8.4-10.2); Potassium 3.8 mmol/L (3.5-5.1); Total Bilirubin 0.5 mg/dL (0.2-1.3)
[2022-01-04] MEDS ORDERED: HYDROmorphone 1 MG/ML 1 ML SYRINGE IVP STA (22:04)
--- NOTE | 2022-01-04 22:51 | CT ---
EXAMINATION TYPE: CT abdomen pelvis wo con DATE OF EXAM: 01/04/2022 COMPARISON: 09/22/2021 HISTORY: pain CT DLP: 1084.4 mGycm Automated exposure control for dose reduction was used. Images obtained from the diaphragm to the floor the pelvis with no contrast. Lung bases are clear. No pleural effusion. Heart size is normal. No pericardial effusion. Liver spleen and stomach pancreas appear normal. The bile ducts are not dilated. There is normal size gallbladder. There is no adrenal mass. Kidneys have normal size and contour. No hydronephrosis. No retroperitoneal adenopathy. Appendix is posterior and appears normal. The bladder distends smoothly. No inguinal her krysta. Uterus is anteverted. There are cysts on the left ovary that measure up to 4 cm. There is no mesenteric edema. No ascites or free air. No sign of a bowel obstruction. Lumbar vertebra e have normal alignment. No compression fracture. Posterior elements are intact. Hip joints are intac t. The sacroiliac joints are intact. IMPRESSION: Left ovarian cysts are not significantly different than old exam. Normal uterus. Normal appendix.
--- NOTE | 2022-01-05 00:51 | US ---
EXAMINATION TYPE: US gallbladder DATE OF EXAM: 01/05/2022 COMPARISON: NONE CLINICAL HISTORY: RUQ pain. nausea and abd pain TECHNIQUE: Multiple sonographic images of the right upper quadrant are obtained. FINDINGS: EXAM MEASUREMENTS: Liver Length: 16.8 cm Gallbladder Wall: 0.3 cm CBD: 0.5 cm Right Kidney: 11.5 x 5.8 x 5.0 cm Pancreas: wnl Liver: wnl Gallbladder: wnl Evidence for sonographic Marroquin's sign: no CBD: wnl Right Kidney: wnl IMPRESSION: Normal exam. No gallstones or dilated ducts.
[2022-01-05] MEDS ORDERED: ONDANSETRON 4 MG ODT STARTER PACK 2 TAB BTL PO STA (00:57)
[2022-01-05] MEDS ORDERED: ACET/COD 300 MG/30 MG STARTER PACK 6 TAB BTL PO STA (00:57)
[2022-01-05 01:00] LABS: Appearance,Urine Clear (Clear); Bacteria,Urine Rare /hpf; Bilirubin,Urine Negative (Negative); Blood,Urine Negative (Negative); Color,Urine Light Yellow; Glucose,Urine (UA) Negative (Negative); Ketones,Urine Negative (Negative); Leukocyte Esterase,Urine Negative (Negative); Mucus,Urine Rare /hpf; Nitrite,Urine Negative (Negative); Protein,Urine 2+ (Negative); RBC,Urine 1 /hpf (0-5); Specific Gravity,Urine 1.006 (1.001-1.035); Squamous Epithelial Cell,Urine <1 /hpf (0-4); Urobilinogen,Urine <2.0 mg/dL (<2.0); WBC,Urine 1 /hpf (0-5)
[2022-01-05 01:46] VITALS: BP 144/68; PULSE 78; RESP 15
== END 2022-01-05 01:47 | disposition home or self-care (01) ==
LOC: EC 16:43
DX: R10.9 Unspecified abdominal pain (principal); R11.0 Nausea; D72.829 Elevated white blood cell count, unspecified; N17.9 Acute kidney failure, unspecified; J45.909 Unspecified asthma, uncomplicated; Z79.51 Long term (current) use of inhaled steroids
CPT/HCPCS: 36415; 83880; 80053; 82150; 83690; 85025; 74176; 99284; 96374 ×2; J1170; J1885; 76705; 81001; 81025

== ENCOUNTER 2022-08-16 18:10 | Emergency (ER) | payer OTHER ==
[2022-08-16 18:20] VITALS: TEMP 98.4
[2022-08-16 18:31] VITALS: RESP 18
--- NOTE | 2022-08-16 19:26 | ED ---
URI HPI - General Chief Complaint: Upper Respiratory Infection Stated Complaint: ASTHMATIC Time Seen by Provider: 08/16/22 19:06 Source: patient Mode of arrival: ambulatory Limitations: no limitations - History of Present Illness Initial Comments: 42-year-old female presenting to the emergency room with complaints of cough and congestion that has been bothersome for approximately 10 days. Approximately one month ago she had RSD and was doing with significant nasal secretions cough and congestion secondary to RSV the symptoms improved approx imately 2 weeks ago and then approximately 10 days ago her shortness of breath and cough seemed to worsen again. She has a long history of asthma and is on Trilogy daily along with albuterol when necessary. She reports shortness of breath with exertion along with cough and congestion she denies any chest pain, abdominal pain, nausea, vomiting, headache, dizziness, fevers or chills. Besides her asthma and recent RSV she has no other significant past medical history. - Related Data Home Medications Medication Instructions Recorded Confirmed Albuterol Nebulized [Ventolin 2.5 mg INHALATION RT-Q4H PRN 04/30/17 08/17/18 Nebulized] Previous Rx's Medication Instructions Recorded Albuterol Inhaler [Ventolin Hfa 2 puff INHALATION RT-Q6H PRN #1 08/18/18 Inhaler] inhaler Budesonide-Formot 160-4.5 Mcg 2 puff INHALATION BID #1 inhaler 08/18/18 [Symbicort 160-4.5 Mcg Inhaler] predniSONE 50 mg PO DAILY #5 tab 08/18/18 Ondansetron Odt [Zofran Odt] 4 mg PO Q8HR PRN #20 tab 01/05/22 Allergies Allergy/AdvReac Type Severity Reaction Status Date / Time No Known Allergies Allergy Verified 08/16/22 18:20 Review of Systems ROS Statement: Those systems with pertinent positive or pertinent negative responses have been documented in the HPI. ROS Other: All systems not noted in ROS Statement are negative. Past Medical History Past Medical History: Asthma, Renal Disease History of Any Multi-Drug Resistant Organisms: None Reported Additional Past Surgical History / Comment(s): ovarian cyst Past Anesthesia/Blood Transfusion Reactions: No Reported Reaction Past Psychological History: Anxiety Smoking Status: Never smoker Past Alcohol Use History: None Reported Past Drug Use History: None Reported - Past Family History Mother Family Medical History: Hypertension, Thyroid Disorder Sister(s) Family Medical History: Asthma, COPD General Exam - General Exam Comments Initial Comments: GENERAL: No acute distress, well developed, well nourished. HEENT: Normocephalic, atraumatic. Pupils equal, round, reactive to light. Moist mucous membranes. LUNGS: No respiratory distress. Clear to auscultation, no adventitious sounds, no use of accessory muscles. HEART: Regular rate and rhythm without murmur, rub, or gallop. ABDOMEN: Normal bowel sounds. Soft, non-tender, non-distended. BACK: Normal inspection. EXTREMITIES: No edema. No tenderness. Moves all extremities. NEUROLOGIC: Alert & oriented x 3. CN II-XII grossly intact. PSYCHIATRIC: Normal affect and behavior. DERMATOLOGIC: Skin intact, without rashes or lesions noted. Limitations: no limitations Course Vital Signs 08/16/22 08/16/22 18:17 18:27 Temperature 98.4 F Pulse Rate 78 Respiratory 20 18 Rate Blood Pressure 121/81 O2 Sat by Pulse 97 Oximetry Medical Decision Making - Medical Decision Making Was pt. sent in by a medical professional or institution (, PA, GRAIN INSPECTOR, urgent care, hospital, or assisted...) When possible be specific @ -No Did you speak to anyone other than the patient for history (EMS, parent, family, police, friend...)? What history was obtained from this source @ -No Did you review nursing and triage notes (agree or disagree)? Why? @ -I reviewed and agree with nursing and triage notes Were old charts reviewed (outside hosp., previous admission, EMS record, old EKG, old radiological studies, urgent care reports/EKG's, assisted records)? Report findings @ -No old charts were reviewed Differential Diagnosis (chest pain, altered mental status, abdominal pain women, abdominal pain men, vaginal bleeding, weakness, fever, dyspnea, syncope, headache, dizziness, GI bleed, back pain, seizure, CVA, palpatations, mental health, musculoskeletal)? @ -Differential Dyspnea: Coronary syndrome, arrhythmia, tamponade, asthma, COPD, pulmonary embolism, pneumonia, pneumothorax, pulmonary effusion, anaphylaxis, diabetic ketoacidosis, flailed chest, pulmonary contusion, diaphragmatic rupture, anemia, neuromuscular, this is not meant to be an all-inclusive list. EKG interpreted by me (3pts min.). @ -None done X-rays interpreted by me (1pt min.). @ -Chest x-ray two-view: No acute cardiopulmonary process. No effusion, infiltrate, consolidation or pneumothorax CT interpreted by me (1pt min.). @ -None done U/S interpreted by me (1pt. min.). @ -None done What testing was considered but not performed or refused? (CT, X-rays, U/S, labs)? Why? @ -None What meds were considered but not given or refused? Why? @ -None Did you discuss the management of the patient with other professionals (professionals i.e. DrFelicia, PA, GRAIN INSPECTOR, lab, RT, psych nurse, social media coordinator, commanding officer traffic division, teacher, contracting officer, case technician)? Give summary @ -No Was smoking cessation discussed for >3mins.? @ -No Was critical care preformed (if so, how long)? @ -No Were there social determinants of health that impacted care today? How? (Homelessness, low income, unemployed, alcoholism, drug addiction, transportation, low edu. Level, literacy, decrease access to med. care, [facility], rehab)? @ -No Was there de-escalation of care discussed even if they declined (Discuss DNR or withdrawal of care, Hospice)? DNR status @ -No What co-morbidities impacted this encounter? (DM, HTN, Smoking, COPD, CAD, Cancer, CVA, ARF, Chemo, Hep., AIDS, mental health diagnosis, sleep apnea, morbid obesity)? @ -None Was patient admitted / discharged? Hospital course, mention meds given and route, prescriptions, significant lab abnormalities, going to OR and other pertinent info. @ -42-year-old female presenting with shortness of breath cough and congestion ongoing for approximately 1 month with a slight reprieve in symptoms approximately 2 weeks ago with resurgent approximately 10 days ago. She was positive for RSV proximally one month ago. She denies any fevers. She does have a history of asthma. Will obtain laboratory studies of CBC, CMP, urinalysis, d- dimer along with chest x-ray two-view and 4 proximal for COVID, influenza and RSV. No indication for supplemental oxygen steroids were nebulized treatment at this time. CBC unremarkable d-dimer normal 0.23 CMP with slightly elevated BUN at 24 otherwise no abnormalities. Chest x-ray without any acute cardiopulmonary process. Viral swabs for COVID, RSV and influenza are negative. No indication for further diagnostic imaging or laboratory studies at this time. Findings discussed with patient at length. Advised symptomatology may continue to linger from RSV for several weeks in the setting of comorbidity of asthma. Encouraged continued use of inhaler, avoidance of respiratory irritants and allergens along with follow-up with her primary care provider. Will discharge home in stable condition with continued treatment for chronic asthma advising follow-up with primary care provider. Undiagnosed new problem with uncertain prognosis? @ -No Drug Therapy requiring intensive monitoring for toxicity (Heparin, Nitro, Insulin, Cardizem)? @ -No Were any procedures done? @ -No Diagnosis/symptom? @ -Asthma with recent RSV infection Acute, or Chronic, or Acute on Chronic? @ -Acute on chronic Uncomplicated (without systemic symptoms) or Complicated (systemic symptoms)? @ -Uncomplicated Side effects of treatment? @ -No Exacerbation, Progression, or Severe Exacerbation? @ -No Poses a threat to life or bodily function? How? (Chest pain, USA, SD, pneumonia, PE, COPD, DKA, ARF, appy, cholecystitis, CVA, Diverticulitis, Homicidal, Suicidal, threat to staff... and all critical care pts) @ -No. Case discussed with Dr. Sepulveda - Lab Data Result diagrams: 08/16/22 19:24 08/16/22 19:24 Lab Results 08/16/22 08/16/22 08/16/22 Range/Units 19:24 19:24 19:24 WBC 10.3 (3.8-10.6) k/uL RBC 4.18 (3.80-5.40) m/uL Hgb 13.7 (11.4-16.0) gm/dL Hct 37.2 (34.0-46.0) % MCV 89.1 (80.0-100.0) fL MCH 32.8 (25.0-35.0) pg MCHC 36.8 (31.0-37.0) g/dL RDW 12.5 (11.5-15.5) % Plt Count 217 (150-450) k/uL MPV 7.4 Neutrophils % 61 % Lymphocytes % 32 % Monocytes % 5 % Eosinophils % 1 % Basophils % 0 % Neutrophils # 6.3 (1.3-7.7) k/uL Lymphocytes # 3.3 (1.0-4.8) k/uL Monocytes # 0.5 (0-1.0) k/uL Eosinophils # 0.1 (0-0.7) k/uL Basophils # 0.0 (0-0.2) k/uL Hyperchromasia Slight D-Dimer 0.23 (<0.60) mg/L FEU Sodium (137-145) mmol/L Potassium (3.5-5.1) mmol/L Chloride (98-107) mmol/L Carbon Dioxide (22-30) mmol/L Anion Gap mmol/L BUN (7-17) mg/dL Creatinine (0.52-1.04) mg/dL Est GFR (CKD-EPI)AfAm (>60 ml/min/1.73 sqM) Est GFR (CKD-EPI)NonAf (>60 ml/min/1.73 sqM) Glucose (74-99) mg/dL Calcium (8.4-10.2) mg/dL Total Bilirubin (0.2-1.3) mg/dL AST (14-36) U/L ALT (4-34) U/L Alkaline Phosphatase (38-126) U/L Total Protein (6.3-8.2) g/dL Albumin (3.5-5.0) g/dL Urine Color Urine Appearance (Clear) Urine pH (5.0-8.0) Ur Specific [place] (1.001-1.035) Urine Protein (Negative) Urine Glucose (UA) (Negative) Urine Ketones (Negative) Urine Blood (Negative) Urine Nitrite (Negative) Urine Bilirubin (Negative) Urine Urobilinogen (<2.0) mg/dL Ur Leukocyte Esterase (Negative) Urine RBC (0-5) /hpf Urine WBC (0-5) /hpf Ur Squamous Epith Cells (0-4) /hpf Influenza Type A (PCR) Not Detected (Not Detectd) Influenza Type B (PCR) Not Detected (Not Detectd) RSV (PCR) Not Detected (Not Detectd) SARS-CoV-2 (PCR) Not Detected (Not Detectd) 08/16/22 08/16/22 Range/Units 19:24 20:40 WBC (3.8-10.6) k/uL RBC (3.80-5.40) m/uL Hgb (11.4-16.0) gm/dL Hct (34.0-46.0) % MCV (80.0-100.0) fL MCH (25.0-35.0) pg MCHC (31.0-37.0) g/dL RDW (11.5-15.5) % Plt Count (150-450) k/uL MPV Neutrophils % % Lymphocytes % % Monocytes % % Eosinophils % % Basophils % % Neutrophils # (1.3-7.7) k/uL Lymphocytes # (1.0-4.8) k/uL Monocytes # (0-1.0) k/uL Eosinophils # (0-0.7) k/uL Basophils # (0-0.2) k/uL Hyperchromasia D-Dimer (<0.60) mg/L FEU Sodium 137 (137-145) mmol/L Potassium 3.6 (3.5-5.1) mmol/L Chloride 102 (98-107) mmol/L Carbon Dioxide 26 (22-30) mmol/L Anion Gap 9 mmol/L BUN 24 H (7-17) mg/dL Creatinine 0.88 (0.52-1.04) mg/dL Est GFR (CKD-EPI)AfAm >90 (>60 ml/min/1.73 sqM) Est GFR (CKD-EPI)NonAf 81 (>60 ml/min/1.73 sqM) Glucose 95 (74-99) mg/dL Calcium 9.5 (8.4-10.2) mg/dL Total Bilirubin 0.5 (0.2-1.3) mg/dL AST 27 (14-36) U/L ALT 26 (4-34) U/L Alkaline Phosphatase 56 (38-126) U/L Total Protein 7.7 (6.3-8.2) g/dL Albumin 4.4 (3.5-5.0) g/dL Urine Color Light Yellow Urine Appearance Clear (Clear) Urine pH 5.5 (5.0-8.0) Ur Specific [place] 1.010 (1.001-1.035) Urine Protein Negative (Negative) Urine Glucose (UA) Negative (Negative) Urine Ketones Negative (Negative) Urine Blood Negative (Negative) Urine Nitrite Negative (Negative) Urine Bilirubin Negative (Negative) Urine Urobilinogen <2.0 (<2.0) mg/dL Ur Leukocyte Esterase Moderate H (Negative) Urine RBC 1 (0-5) /hpf Urine WBC 2 (0-5) /hpf Ur Squamous Epith Cells 1 (0-4) /hpf Influenza Type A (PCR) (Not Detectd) Influenza Type B (PCR) (Not Detectd) RSV (PCR) (Not Detectd) SARS-CoV-2 (PCR) (Not Detectd) - Radiology Data Radiology results: report reviewed, image reviewed Disposition Clinical Impression: Asthma without acute exacerbation Disposition: HOME SELF-CARE Condition: Stable Instructions (If sedation given, give patient instructions): Asthma (ED) Additional Instructions: Please return to the Emergency Department if symptoms worsen or any other concerns. Continue your current asthma inhaler medication regiment. Avoid respiratory irritants and allergens when possible. Please follow-up with your primary care provider. Is patient prescribed a controlled substance at d/c from ED?: No Referrals: Lloyd Colon DO [Primary Care Provider] - 1-2 days Time of Disposition: 21:26
--- NOTE | 2022-08-16 19:41 | XR ---
EXAMINATION TYPE: XR chest 2V DATE OF EXAM: 08/16/2022 7:36 PM COMPARISON: Chest radiographs from 08/17/2018 TECHNIQUE: XR chest 2V Frontal and lateral views of the chest. CLINICAL INDICATION:Female, 42 years old with history of cough; FINDINGS: Lungs/Pleura: There is no evidence of pleural effusion, focal consolidation, or pneumothorax. Pulmonary vascularity: Unremarkable. Heart/mediastinum: Cardiomediastinal silhouette is unremarkable. Musculoskeletal: No acute osseous pathology. IMPRESSION: No acute cardiopulmonary disease/process.
[2022-08-16 20:22] LABS: Basophils % (A) 0 %; Eosinophils # (A) 0.1 k/uL (0-0.7); Eosinophils % (A) 1 %; HCT 37.2 % (34.0-46.0); HGB 13.7 gm/dL (11.4-16.0); Hyperchromasia Slight; Lymphocytes # (A) 3.3 k/uL (1.0-4.8); Lymphocytes % (A) 32 %; MCH 32.8 pg (25.0-35.0); MCHC 36.8 g/dL (31.0-37.0); MCV 89.1 fL (80.0-100.0); Mean Platelet Volume 7.4; Monocytes # (A) 0.5 k/uL (0-1.0); Monocytes % (A) 5 %; Neutrophils # (A) 6.3 k/uL (1.3-7.7); Neutrophils % (A) 61 %; Platelet Count 217 k/uL (150-450); RBC 4.18 m/uL (3.80-5.40); RDW 12.5 % (11.5-15.5); WBC 10.3 k/uL (3.8-10.6)
[2022-08-16 20:39] LABS: ALT 26 U/L (4-34); AST 27 U/L (14-36); African American GFR (CKD) >90 (>60 ml/min/1.73 sqM); Albumin 4.4 g/dL (3.5-5.0); Alkaline Phosphatase 56 U/L (38-126); Anion Gap 9 mmol/L; Blood Urea Nitrogen 24 mg/dL (7-17); Calcium 9.5 mg/dL (8.4-10.2); Carbon Dioxide 26 mmol/L (22-30); Chloride 102 mmol/L (98-107); Glucose 95 mg/dL (74-99); Non-African American GFR(CKD) 81 (>60 ml/min/1.73 sqM); Potassium 3.6 mmol/L (3.5-5.1); Sodium 137 mmol/L (137-145); Total Bilirubin 0.5 mg/dL (0.2-1.3); Total Protein 7.7 g/dL (6.3-8.2)
[2022-08-16 21:21] LABS: Appearance,Urine Clear (Clear); Bilirubin,Urine Negative (Negative); Blood,Urine Negative (Negative); Color,Urine Light Yellow; Glucose,Urine (UA) Negative (Negative); Ketones,Urine Negative (Negative); Leukocyte Esterase,Urine Moderate (Negative); Nitrite,Urine Negative (Negative); PH, Urine 5.5 (5.0-8.0); Protein,Urine Negative (Negative); RBC,Urine 1 /hpf (0-5); Squamous Epithelial Cell,Urine 1 /hpf (0-4); Urobilinogen,Urine <2.0 mg/dL (<2.0); WBC,Urine 2 /hpf (0-5)
[2022-08-16 21:35] VITALS: BP 144/83; PULSE 72
== END 2022-08-16 21:35 | disposition home or self-care (01) ==
LOC: EC 18:10
DX: J45.901 Unspecified asthma with (acute) exacerbation (principal); Z20.822 Contact with and (suspected) exposure to COVID-19; Z79.899 Other long term (current) drug therapy
CPT/HCPCS: 36415; 71046; 80053; 81001; 85025; 85379; 87636; 99285

== ENCOUNTER 2022-10-06 15:50 | Emergency (ER) | payer OTHER ==
[2022-10-06] MEDS ORDERED: SODIUM CHLORIDE 0.9% 1,000 ML IV STA (16:06)
[2022-10-06] MEDS ORDERED: KETOROLAC 15 MG/ML 1 ML VIAL IVP STA (16:27)
[2022-10-06 16:44] LABS: Basophils % (A) 0 %; Eosinophils # (A) 0.1 k/uL (0-0.7); Eosinophils % (A) 1 %; HCT 34.2 % (34.0-46.0); HGB 11.8 gm/dL (11.4-16.0); Lymphocytes # (A) 2.5 k/uL (1.0-4.8); Lymphocytes % (A) 24 %; MCH 31.5 pg (25.0-35.0); MCHC 34.4 g/dL (31.0-37.0); MCV 91.7 fL (80.0-100.0); Mean Platelet Volume 7.6; Monocytes # (A) 0.5 k/uL (0-1.0); Monocytes % (A) 4 %; Neutrophils # (A) 7.2 k/uL (1.3-7.7); Neutrophils % (A) 69 %; Platelet Count 192 k/uL (150-450); RBC 3.73 m/uL (3.80-5.40); RDW 12.6 % (11.5-15.5); WBC 10.5 k/uL (3.8-10.6)
[2022-10-06 16:59] LABS: ALT 23 U/L (4-34); AST 25 U/L (14-36); African American GFR (CKD) >90 (>60 ml/min/1.73 sqM); Alkaline Phosphatase 53 U/L (38-126); Anion Gap 9 mmol/L; Blood Urea Nitrogen 13 mg/dL (7-17); Calcium 8.9 mg/dL (8.4-10.2); Carbon Dioxide 25 mmol/L (22-30); Chloride 101 mmol/L (98-107); Glucose 104 mg/dL (74-99); Lipase 227 U/L (23-300); Non-African American GFR(CKD) >90 (>60 ml/min/1.73 sqM); Potassium 3.9 mmol/L (3.5-5.1); Sodium 135 mmol/L (137-145); Total Bilirubin 0.4 mg/dL (0.2-1.3); Total Protein 6.8 g/dL (6.3-8.2)
[2022-10-06 17:24] LABS: Appearance,Urine Clear (Clear); Bilirubin,Urine Negative (Negative); Blood,Urine Negative (Negative); Color,Urine Light Yellow; Glucose,Urine (UA) Negative (Negative); Ketones,Urine Negative (Negative); Leukocyte Esterase,Urine Negative (Negative); Nitrite,Urine Negative (Negative); Protein,Urine Negative (Negative); Specific Gravity,Urine 1.006 (1.001-1.035); Urobilinogen,Urine <2.0 mg/dL (<2.0)
--- NOTE | 2022-10-06 18:00 | US ---
EXAMINATION TYPE: US transvaginal DATE OF EXAM: 10/06/2022 COMPARISON: NONE CLINICAL INDICATION: Female, 42 years old with history of pelvic pain; Pain TECHNIQUE: Transvaginal (TV EXAM MEASUREMENTS: Uterus: 9.2 x 6.1 x 6.1 cm Endometrial Stripe: 1.2 cm Right Ovary: 3.5 x 1.9 x 3.6 cm Left Ovary: 6.1 x 4.4 x 5.5 cm 1. Uterus: Anteverted Hypoechoic area 4.0 x 4.6 x 5.0 cm 2. Endometrium: wnl 3. Right Ovary: Anechoic area 2.8 x 1.6 x 2.8 cm. 4. Left Ovary: Anechoic area 5.6 x 4.3 x 5.2 cm Spectral, color and waveform doppler imaging shows good arterial and venous flow within the ovaries ; there is no evidence for ovarian torsion. 5. Bilateral Adnexa: wnl 6. Posterior cul-de-sac: wnl IMPRESSION: 1. Leiomyomatous change of the uterus. 2. Ovarian cystic changes seen.
--- NOTE | 2022-10-06 18:20 | ED ---
Abdominal Pain HPI - General Chief Complaint: Abdominal Pain Stated Complaint: abdomina pain; [facility] from [facility] Time Seen by Provider: 10/06/22 16:05 Source: patient Mode of arrival: ambulatory Limitations: no limitations - History of Present Illness Initial Comments: Patient is a 42-year-old female presents to the emergency department for abdominal pain. It started today in the lower abdomen on both sides. The pain is mild patient believes it may be due to eating too many vinegar protein chips. She denies fever chills nausea vomiting. Denies constipation, diarrhea, blood in stool. Denies burning with urination, increased urinary frequency/urgency, blood in urine, vaginal bleeding, vaginal discharge. Patient went to urgent care and was sent to the emergency department for evaluation. She does have history of ovarian cysts which she states have been removed laparoscopically twice. - Related Data Home Medications Medication Instructions Recorded Confirmed Albuterol Nebulized [Ventolin 2.5 mg INHALATION RT-Q4H PRN 04/30/17 08/17/18 Nebulized] Previous Rx's Medication Instructions Recorded Albuterol Inhaler [Ventolin Hfa 2 puff INHALATION RT-Q6H PRN #1 08/18/18 Inhaler] inhaler Budesonide-Formot 160-4.5 Mcg 2 puff INHALATION BID #1 inhaler 08/18/18 [Symbicort 160-4.5 Mcg Inhaler] predniSONE 50 mg PO DAILY #5 tab 08/18/18 Ondansetron Odt [Zofran Odt] 4 mg PO Q8HR PRN #20 tab 01/05/22 Ibuprofen [Motrin] 800 mg PO Q8HR PRN #30 tab 10/06/22 Allergies Allergy/AdvReac Type Severity Reaction Status Date / Time No Known Allergies Allergy Verified 10/06/22 15:56 Review of Systems ROS Statement: Those systems with pertinent positive or pertinent negative responses have been documented in the HPI. ROS Other: All systems not noted in ROS Statement are negative. Past Medical History Past Medical History: Asthma, Renal Disease History of Any Multi-Drug Resistant Organisms: None Reported Additional Past Surgical History / Comment(s): ovarian cyst Past Anesthesia/Blood Transfusion Reactions: No Reported Reaction Past Psychological History: Anxiety Smoking Status: Never smoker Past Alcohol Use History: None Reported Past Drug Use History: None Reported - Past Family History Mother Family Medical History: Hypertension, Thyroid Disorder Sister(s) Family Medical History: Asthma, COPD General Exam Limitations: no limitations General appearance: alert, in no apparent distress Head exam: Present: atraumatic, normocephalic, normal inspection Respiratory exam: Present: normal lung sounds bilaterally. Absent: respiratory distress, wheezes, rales, rhonchi, stridor Cardiovascular Exam: Present: regular rate, normal rhythm, normal heart sounds. Absent: systolic murmur, diastolic murmur, rubs, gallop, clicks GI/Abdominal exam: Present: soft, tenderness (mild pelvic ), normal bowel sounds. Absent: distended, guarding, rebound, rigid Back exam: Absent: CVA tenderness (R), CVA tenderness (L) Neurological exam: Present: alert, oriented X3, CN II-XII intact Psychiatric exam: Present: normal affect, normal mood Skin exam: Present: warm, dry, intact, normal color. Absent: rash Course Vital Signs 10/06/22 10/06/22 15:54 18:34 Temperature 97.8 F 98.6 F Pulse Rate 82 86 Respiratory 20 16 Rate Blood Pressure 158/77 140/68 O2 Sat by Pulse 99 98 Oximetry Medical Decision Making - Medical Decision Making Was pt. sent in by a medical professional or institution (, PA, HOME RESTORATION SERVICE CLEANER, urgent care, hospital, or intermediate...) When possible be specific @ -Urgent care today Did you speak to anyone other than the patient for history (EMS, parent, family, police, friend...)? What history was obtained from this source @ -No Did you review nursing and triage notes (agree or disagree)? Why? @ -I reviewed and agree with nursing and triage notes Were old charts reviewed (outside hosp., previous admission, EMS record, old EKG, old radiological studies, urgent care reports/EKG's, intermediate records)? Report findings @ -No old charts were reviewed Differential Diagnosis (chest pain, altered mental status, abdominal pain women, abdominal pain men, vaginal bleeding, weakness, fever, dyspnea, syncope, headache, dizziness, GI bleed, back pain, seizure, CVA, palpatations, mental health)? @ -Differential Abdominal Pain Women: Appendicitis, Cholecystitis, diverticulosis, ischemic bowel, pancreatitis, hepatitis, UTI, gastroenteritis, AAA, incarcerated hernia, bowel obstruction, constipation, inflammatory bowel, hepatitis, peptic ulcer disease, splenic infarction, perforated viscus, vulvitis, ovarian torsion, PID, kidney stone, placenta abruption, this is not meant to be an all-inclusive list EKG interpreted by me (3pts min.). @ -As above X-rays interpreted by me (1pt min.). @ -None done CT interpreted by me (1pt min.). @ -None done U/S interpreted by me (1pt. min.). @ -No. Report shows ovarian cystic changes seen. Patient has large cyst on left ovary approximately 5.64.35.2 cm. She has smaller cyst on the right ovary. No evidence of torsion. There is also leiomyomatous changes of the uterus What testing was considered but not performed or refused? (CT, X-rays, U/S, labs)? Why? @ -None What meds were considered but not given or refused? Why? @ -None Did you discuss the management of the patient with other professionals (professionals i.e. , PA, HOME [employer]ATION SERVICE CLEANER, lab, RT, psych nurse, nursing home social worker, cream separator operator, teacher, media liaison officer, case management director)? Give summary @ -No Was smoking cessation discussed for >3mins.? @ -No Was critical care preformed (if so, how long)? @ -No Were there social determinants of health that impacted care today? How? (Homelessness, low income, unemployed, alcoholism, drug addiction, transportation, low edu. Level, literacy, decrease access to med. care, nursing home, rehab)? @ -No Was there de-escalation of care discussed even if they declined (Discuss DNR or withdrawal of care, Hospice)? DNR status @ -No What co-morbidities impacted this encounter? (DM, HTN, Smoking, COPD, CAD, Cancer, CVA, ARF, Chemo, Hep., AIDS, mental health diagnosis, sleep apnea, morbid obesity)? @ -[None] Was patient admitted / discharged? Hospital course, mention meds given and rou te, prescriptions, significant lab abnormalities, going to OR and other pertinent info. @ -Discharged. Patient has bilateral ovarian cysts with no evidence of torsion. Pain controlled. Patient to follow up with gynecology Undiagnosed new problem with uncertain prognosis? @ -[No] Drug Therapy requiring intensive monitoring for toxicity (Heparin, Nitro, Insulin, Cardizem)? @ -[No] Were any procedures done? @ -[No] Diagnosis/symptom? @ -ovarian cyst, leiomyoma Acute, or Chronic, or Acute on Chronic? @ -acute Uncomplicated (without systemic symptoms) or Complicated (systemic symptoms)? @ -uncomplicated Side effects of treatment? @ -[No] Exacerbation, Progression, or Severe Exacerbation? @ -[No] Poses a threat to life or bodily function? How? (Chest pain, [place], [place], pneumonia, PE, COPD, DKA, ARF, appy, cholecystitis, CVA, Diverticulitis, Homicidal, Suicidal, threat to staff... and all critical care pts) @ -No Dr. Lai is my attending - Lab Data Result diagrams: 10/06/22 16:29 10/06/22 16:29 Lab Results 10/06/22 10/06/22 10/06/22 Range/Units 16:05 16:29 16:29 WBC 10.5 (3.8-10.6) k/uL RBC 3.73 L (3.80-5.40) m/uL Hgb 11.8 (11.4-16.0) gm/dL Hct 34.2 (34.0-46.0) % MCV 91.7 (80.0-100.0) fL MCH 31.5 (25.0-35.0) pg MCHC 34.4 (31.0-37.0) g/dL RDW 12.6 (11.5-15.5) % Plt Count 192 (150-450) k/uL MPV 7.6 Neutrophils % 69 % Lymphocytes % 24 % Monocytes % 4 % Eosinophils % 1 % Basophils % 0 % Neutrophils # 7.2 (1.3-7.7) k/uL Lymphocytes # 2.5 (1.0-4.8) k/uL Monocytes # 0.5 (0-1.0) k/uL Eosinophils # 0.1 (0-0.7) k/uL Basophils # 0.0 (0-0.2) k/uL Sodium 135 L (137-145) mmol/L Potassium 3.9 (3.5-5.1) mmol/L Chloride 101 (98-107) mmol/L Carbon Dioxide 25 (22-30) mmol/L Anion Gap 9 mmol/L BUN 13 (7-17) mg/dL Creatinine 0.66 (0.52-1.04) mg/dL Est GFR (CKD-EPI)AfAm >90 (>60 ml/min/1.73 sqM) Est GFR (CKD-EPI)NonAf >90 (>60 ml/min/1.73 sqM) Glucose 104 H (74-99) mg/dL Plasma Lactic Acid Saulo (0.7-2.0) mmol/L Calcium 8.9 (8.4-10.2) mg/dL Total Bilirubin 0.4 (0.2-1.3) mg/dL AST 25 (14-36) U/L ALT 23 (4-34) U/L Alkaline Phosphatase 53 (38-126) U/L Total Protein 6.8 (6.3-8.2) g/dL Albumin 4.0 (3.5-5.0) g/dL Lipase 227 (23-300) U/L Urine Color Light Yellow Urine Appearance Clear (Clear) Urine pH 5.0 (5.0-8.0) Ur Specific [place] 1.006 (1.001-1.035) Urine Protein Negative (Negative) Urine Glucose (UA) Negative (Negative) Urine Ketones Negative (Negative) Urine Blood Negative (Negative) Urine Nitrite Negative (Negative) Urine Bilirubin Negative (Negative) Urine Urobilinogen <2.0 (<2.0) mg/dL Ur Leukocyte Esterase Negative (Negative) 10/06/22 Range/Units 16:29 WBC (3.8-10.6) k/uL RBC (3.80-5.40) m/uL Hgb (11.4-16.0) gm/dL Hct (34.0-46.0) % MCV (80.0-100.0) fL MCH (25.0-35.0) pg MCHC (31.0-37.0) g/dL RDW (11.5-15.5) % Plt Count (150-450) k/uL MPV Neutrophils % % Lymphocytes % % Monocytes % % Eosinophils % % Basophils % % Neutrophils # (1.3-7.7) k/uL Lymphocytes # (1.0-4.8) k/uL Monocytes # (0-1.0) k/uL Eosinophils # (0-0.7) k/uL Basophils # (0-0.2) k/uL Sodium (137-145) mmol/L Potassium (3.5-5.1) mmol/L Chloride (98-107) mmol/L Carbon Dioxide (22-30) mmol/L Anion Gap mmol/L BUN (7-17) mg/dL Creatinine (0.52-1.04) mg/dL Est GFR (CKD-EPI)AfAm (>60 ml/min/1.73 sqM) Est GFR (CKD-EPI)NonAf (>60 ml/min/1.73 sqM) Glucose (74-99) mg/dL Plasma Lactic Acid Saulo 1.6 (0.7-2.0) mmol/L Calcium (8.4-10.2) mg/dL Total Bilirubin (0.2-1.3) mg/dL AST (14-36) U/L ALT (4-34) U/L Alkaline Phosphatase (38-126) U/L Total Protein (6.3-8.2) g/dL Albumin (3.5-5.0) g/dL Lipase (23-300) U/L Urine Color Urine Appearance (Clear) Urine pH (5.0-8.0) Ur Specific [place] (1.001-1.035) Urine Protein (Negative) Urine Glucose (UA) (Negative) Urine Ketones (Negative) Urine Blood (Negative) Urine Nitrite (Negative) Urine Bilirubin (Negative) Urine Urobilinogen (<2.0) mg/dL Ur Leukocyte Esterase (Negative) Disposition Clinical Impression: Leiomyoma, Ovarian cyst Disposition: HOME SELF-CARE Condition: Good Additional Instructions: Take medication as directed. Follow-up with gynecology in 1 to 2 days. Return to the emergency department if you experience new, concerning, or worsening symptoms. Prescriptions: Ibuprofen [Motrin] 800 mg PO Q8HR PRN #30 tab PRN Reason: Pain Is patient prescribed a controlled substance at d/c from ED?: No Referrals: Lloyd Colon DO [Primary Care Provider] - 1-2 days
[2022-10-06 18:35] VITALS: BP 140/68; PULSE 86; RESP 16; TEMP 98.6
== END 2022-10-06 18:35 | disposition home or self-care (01) ==
LOC: EC 15:50
DX: D27.1 Benign neoplasm of left ovary (principal); J45.909 Unspecified asthma, uncomplicated; Z86.59 Personal history of other mental and behavioral disorders
CPT/HCPCS: 36415; 80053; 83605; 83690; 85025; 81003; 93975; 76830; 99284; 96374; 96361; J1885

== ENCOUNTER 2023-04-14 14:32 | Emergency (ER) | payer OTHER ==
[2023-04-14 14:51] VITALS: BP 132/74; PULSE 60; RESP 16; TEMP 98.3
--- NOTE | 2023-04-14 16:05 | ED ---
Abdominal Pain HPI - General Source: patient, RN notes reviewed Limitations: no limitations <Audrey Johnson - Last Filed: 04/22/23 18:19> - General Source: RN notes reviewed, old records reviewed Limitations: no limitations - History of Present Illness Complaint: abdominal pain -: days(s) Location: suprapubic Radiation: suprapubic Migration to: epigastric, suprapubic Severity: moderate Quality: cramping, sharp Consistency: intermittent Improves With: nothing Worsens With: nothing Associated Symptoms: nausea, constipation Treatments Prior to Arrival: other (0) <Iggy Woodson - Last Filed: 04/23/23 11:45> - General Chief Complaint: Abdominal Pain Stated Complaint: abd pain Time Seen by Provider: 04/14/23 16:04 - History of Present Illness Initial Comments: Patient is a 43-year-old female presented ER chief complaint abdominal pain. Patient states that started earlier this morning. Patient has a history of IBS and ovarian cysts. Patient denies any fevers or chills. (Audrey Johnson) This is a 43-year-old female with nonspecific abdominal pain. Pain has been episodic with history of IBS ovarian cyst states the pain is the same. Patient states she is pain control she has mild nausea no vomiting no fevers no other complaints. (Iggy Woodson) - Related Data Home Medications Medication Instructions Recorded Confirmed Fluticasone/Umeclidin/Vilanter 1 puff INHALATION RT-DAILY@1630 04/14/23 04/14/23 [Trelegy Ellipta 100-62.5-25] Vit No.179/Iron/Folic 1 tab PO DAILY 04/14/23 04/14/23 [ Tablet] Allergies Allergy/AdvReac Type Severity Reaction Status Date / Time No Known Allergies Allergy Verified 04/14/23 17:47 Review of Systems ROS Other: All systems not noted in ROS Statement are negative. <Audrey Johnson - Last Filed: 04/22/23 18:19> ROS Other: All systems not noted in ROS Statement are negative. <Iggy Woodson - Last Filed: 04/23/23 11:45> ROS Statement: Those systems with pertinent positive or pertinent negative responses have been documented in the HPI. Past Medical History Past Medical History: Asthma, Renal Disease Additional Past Medical History / Comment(s): ibs History of Any Multi-Drug Resistant Organisms: None Reported Additional Past Surgical History / Comment(s): ovarian cyst Past Anesthesia/Blood Transfusion Reactions: No Reported Reaction Past Psychological History: Anxiety Smoking Status: Never smoker Past Alcohol Use History: None Reported Past Drug Use History: None Reported - Past Family History Mother Family Medical History: Hypertension, Thyroid Disorder Sister(s) Family Medical History: Asthma, COPD <Audrey Johnson - Last Filed: 04/22/23 18:19> General Exam Limitations: no limitations <Audrey Johnson - Last Filed: 04/22/23 18:19> General appearance: alert, in no apparent distress Head exam: Present: atraumatic, normocephalic, normal inspection Eye exam: Present: normal appearance, PERRL, EOMI. Absent: scleral icterus, conjunctival injection, periorbital swelling ENT exam: Present: normal exam, mucous membranes moist Neck exam: Present: normal inspection. Absent: tenderness, meningismus, lymphadenopathy Respiratory exam: Present: normal lung sounds bilaterally. Absent: respiratory distress, wheezes, rales, rhonchi, stridor Cardiovascular Exam: Present: regular rate, normal rhythm, normal heart sounds. Absent: systolic murmur, diastolic murmur, rubs, gallop, clicks GI/Abdominal exam: Present: soft, normal bowel sounds. Absent: distended, tenderness, guarding, rebound, rigid Extremities exam: Present: normal inspection, full ROM, normal capillary refill. Absent: tenderness, pedal edema, joint swelling, calf tenderness Back exam: Present: normal inspection Neurological exam: Present: alert, oriented X3, CN II-XII intact Psychiatric exam: Present: normal affect, normal mood Skin exam: Present: warm, dry, intact, normal color. Absent: rash <Iggy Woodson - Last Filed: 04/23/23 11:45> - General Exam Comments Initial Comments: Visual Physical Exam Vital signs reviewed General: Well-appearing, nontoxic, no acute distress. Head: Normocephalic, atraumatic Eyes: PERRLA, EOMI ENT: Airway patent Chest: Nonlabored breathing Skin: No visual rash, normal skin tone Neuro: Alert and oriented 3 Musculoskeletal: No gross abnormalities (Benjamin Johnson Course <Iggy Woodson - Last Filed: 04/23/23 11:45> Vital Signs 04/14/23 14:46 Temperature 98.3 F Pulse Rate 60 Respiratory 16 Rate Blood Pressure 132/74 O2 Sat by Pulse 98 Oximetry - Reevaluation(s) Reevaluation #1: Medical records reviewed (Iggy Woodson) Reevaluation #2: Patient symptoms are dramatically improved, no complaints (Iggy Woodson) Reevaluation #3: Patient informed results and questions are answered (Iggy Woodson) Reevaluation #4: Was pt. sent in by a medical professional or institution (, [facility], REWORKER, urgent care, hospital, or senior living...) When possible be specific @ -no Did you speak to anyone other than the patient for history (EMS, parent, family, police, friend...)? What history was obtained from this source @ -no Did you review nursing and triage notes (agree or disagree)? Why? @ -agree Are old charts reviewed (outside hosp., previous admission, EMS record, old EKG, old radiological studies, urgent care reports/EKG's, senior living records)? Report findings @ -yes Differential Diagnosis (chest pain, altered mental status, abdominal pain women, abdominal pain men, vaginal bleeding, weakness, fever, dyspnea, syncope, headache, dizziness, GI bleed, back pain, seizure, CVA, palpatations, mental health, musculoskeletal)? @ -prior EKG interpreted by me (3pts min.). @ -no X-rays interpreted by me (1pt min.). @ -yes negative for acute disease CT interpreted by me (1pt min.). @ -no U/S interpreted by me (1pt. min.). @ -no What testing was considered but not performed or refused? (CT, X-rays, U/S, labs)? Why? @ -none What meds were considered but not given or refused? Why? @ -none Did you discuss the management of the patient with other professionals (professionals i.e. [facility] Chan, REWORKER, lab, RT, psych nurse, social group worker, sheet folder, teacher, education officer, case work aide)? Give summary @ -no Was smoking cessation discussed for >3mins.? @ -no Was critical care preformed (if so, how long)? @ -no Were there social determinants of health that impacted care today? How? (Homelessness, low income, unemployed, alcoholism, drug addiction, transport ation, low edu. Level, literacy, decrease access to med. care, [facility], rehab)? @ -none Was there de-escalation of care discussed even if they declined (Discuss DNR or withdrawal of care, Hospice)? DNR status @ -no What co-morbidities impacted this encounter? (DM, HTN, Smoking, COPD, CAD, Cancer, CVA, ARF, Chemo, Hep., AIDS, mental health diagnosis, sleep apnea, morbid obesity)? @ -none Was patient admitted / discharged? Hospital course, mention meds given and route, prescriptions, significant lab abnormalities, going to OR and other pertinent info. @ - 43 female to the emergency department for evaluation of abdominal pain. Patient does have pain improvement here in the emergency room no acute findings here in the ER. Patient's pain is controlled patient can be discharged home Discharge Undiagnosed new problem with uncertain prognosis? @ -no Drug Therapy requiring intensive monitoring for toxicity (Heparin, Nitro, Insulin, Cardizem)? @ -no Were any procedures done? @ -no Diagnosis/symptom? @ -Abdominal pain NOS Acute, or Chronic, or Acute on Chronic? @ -Acute Uncomplicated (without systemic symptoms) or Complicated (systemic symptoms)? @ -Complicated Side effects of treatment? @ -no Exacerbation, Progression, or Severe Exacerbation? @ -exacerbation Poses a threat to life or bodily function? How? (Chest pain, USA, ID, pneumonia, PE, COPD, DKA, ARF, appy, cholecystitis, CVA, Diverticulitis, Homicidal, Suicidal, threat to staff... and all critical care pts) @ -no (Iggy Woodson) Reevaluation #5: Differential Abdominal Pain Women: Appendicitis, Cholecystitis, diverticulosis, ischemic bowel, pancreatitis, hepatitis, UTI, gastroenteritis, AAA, incarcerated hernia, bowel obstruction, constipation, inflammatory bowel, hepatitis, peptic ulcer disease, splenic infarction, perforated viscus, vulvitis, ovarian torsion, PID, kidney stone, placenta abruption, this is not meant to be an all-inclusive list (Iggy Woodson) Medical Decision Making - Lab Data Result diagrams: 04/14/23 16:31 04/14/23 16:31 <Audrey Johnson - Last Filed: 04/22/23 18:19> - Lab Data Result diagrams: 04/14/23 16:31 04/14/23 16:31 - Radiology Data Radiology results: report reviewed (X-ray KUB is negative for acute disease), image reviewed <Iggy Woodson - Last Filed: 04/23/23 11:45> - Medical Decision Making I performed the quick note portion of the exam. Electronically signed by Audrey Johnson PA-C (Audrey Johnson) 43 female to the emergency department for evaluation of abdominal pain. Patient does have pain improvement here in the emergency room no acute findings here in the ER. Patient's pain is controlled patient can be discharged home (Iggy Woodson) - Lab Data Lab Results 04/14/23 04/14/23 04/14/23 Range/Units 16:03 16:03 16:31 WBC 12.4 H (3.8-10.6) k/uL RBC 4.36 (3.80-5.40) m/uL Hgb 13.8 (11.4-16.0) gm/dL Hct 40.8 (34.0-46.0) % MCV 93.6 (80.0-100.0) fL MCH 31.6 (25.0-35.0) pg MCHC 33.7 (31.0-37.0) g/dL RDW 12.4 (11.5-15.5) % Plt Count 203 (150-450) k/uL MPV 7.2 Neutrophils % 76 % Lymphocytes % 18 % Monocytes % 4 % Eosinophils % 1 % Basophils % 0 % Neutrophils # 9.4 H (1.3-7.7) k/uL Lymphocytes # 2.3 (1.0-4.8) k/uL Monocytes # 0.4 (0-1.0) k/uL Eosinophils # 0.1 (0-0.7) k/uL Basophils # 0.0 (0-0.2) k/uL Sodium (137-145) mmol/L Potassium (3.5-5.1) mmol/L Chloride (98-107) mmol/L Carbon Dioxide (22-30) mmol/L Anion Gap mmol/L BUN (7-17) mg/dL Creatinine (0.52-1.04) mg/dL Est GFR (CKD-EPI)AfAm (>60 ml/min/1.73 sqM) Est GFR (CKD-EPI)NonAf (>60 ml/min/1.73 sqM) Glucose (74-99) mg/dL Plasma Lactic Acid Saulo (0.7-2.0) mmol/L Calcium (8.4-10.2) mg/dL Total Bilirubin (0.2-1.3) mg/dL AST (14-36) U/L ALT (4-34) U/L Alkaline Phosphatase (38-126) U/L Total Protein (6.3-8.2) g/dL Albumin (3.5-5.0) g/dL Amylase (30-110) U/L Lipase (23-300) U/L Urine Color Light Yellow Urine Appearance Clear (Clear) Urine pH 6.0 (5.0-8.0) Ur Specific [place] 1.010 (1.001-1.035) Urine Protein Negative (Negative) Urine Glucose (UA) Negative (Negative) Urine Ketones Negative (Negative) Urine Blood Negative (Negative) Urine Nitrite Negative (Negative) Urine Bilirubin Negative (Negative) Urine Urobilinogen <2.0 (<2.0) mg/dL Ur Leukocyte Esterase Negative (Negative) Urine HCG, Qual Not Detected (Not Detectd) 04/14/23 04/14/23 Range/Units 16:31 16:31 WBC (3.8-10.6) k/uL RBC (3.80-5.40) m/uL Hgb (11.4-16.0) gm/dL Hct (34.0-46.0) % MCV (80.0-100.0) fL MCH (25.0-35.0) pg MCHC (31.0-37.0) g/dL RDW (11.5-15.5) % Plt Count (150-450) k/uL MPV Neutrophils % % Lymphocytes % % Monocytes % % Eosinophils % % Basophils % % Neutrophils # (1.3-7.7) k/uL Lymphocytes # (1.0-4.8) k/uL Monocytes # (0-1.0) k/uL Eosinophils # (0-0.7) k/uL Basophils # (0-0.2) k/uL Sodium 134 L (137-145) mmol/L Potassium 4.1 (3.5-5.1) mmol/L Chloride 102 (98-107) mmol/L Carbon Dioxide 26 (22-30) mmol/L Anion Gap 6 mmol/L BUN 17 (7-17) mg/dL Creatinine 0.66 (0.52-1.04) mg/dL Est GFR (CKD-EPI)AfAm >90 (>60 ml/min/1.73 sqM) Est GFR (CKD-EPI)NonAf >90 (>60 ml/min/1.73 sqM) Glucose 93 (74-99) mg/dL Plasma Lactic Acid Saulo 0.7 (0.7-2.0) mmol/L Calcium 8.8 (8.4-10.2) mg/dL Total Bilirubin 0.4 (0.2-1.3) mg/dL AST 28 (14-36) U/L ALT 24 (4-34) U/L Alkaline Phosphatase 52 (38-126) U/L Total Protein 6.2 L (6.3-8.2) g/dL Albumin 3.7 (3.5-5.0) g/dL Amylase 34 (30-110) U/L Lipase 213 (23-300) U/L Urine Color Urine Appearance (Clear) Urine pH (5.0-8.0) Ur Specific [place] (1.001-1.035) Urine Protein (Negative) Urine Glucose (UA) (Negative) Urine Ketones (Negative) Urine Blood (Negative) Urine Nitrite (Negative) Urine Bilirubin (Negative) Urine Urobilinogen (<2.0) mg/dL Ur Leukocyte Esterase (Negative) Urine HCG, Qual (Not Detectd) Disposition <Audrey Johnson - Last Filed: 04/22/23 18:19> Is patient prescribed a controlled substance at d/c from ED?: No Time of Disposition: 17:50 <Iggy Woodson - Last Filed: 04/23/23 11:45> Clinical Impression: Abdominal pain Disposition: HOME SELF-CARE Condition: Good Instructions (If sedation given, give patient instructions): Abdominal Pain (ED) Referrals: Lloyd Colon DO [Primary Care Provider] - 1-2 days
--- NOTE | 2023-04-14 16:40 | XR ---
EXAMINATION TYPE: XR KUB DATE OF EXAM: 04/14/2023 COMPARISON: NONE HISTORY: Pain TECHNIQUE: Single supine KUB image of the abdomen is obtained FINDINGS: Small bowel demonstrates no evidence for dilatation or air fluid levels. Gas and fecal material is seen in non-distended colon. No convincing evidence for pneumoperitoneum. No unusual calcifications. The lung bases are clear. The osseous structures are intact. IMPRESSION: 1. Overall nonobstructive bowel gas pattern.
[2023-04-14 17:09] LABS: Basophils % (A) 0 %; Eosinophils # (A) 0.1 k/uL (0-0.7); Eosinophils % (A) 1 %; HCT 40.8 % (34.0-46.0); HGB 13.8 gm/dL (11.4-16.0); Lymphocytes # (A) 2.3 k/uL (1.0-4.8); Lymphocytes % (A) 18 %; MCH 31.6 pg (25.0-35.0); MCHC 33.7 g/dL (31.0-37.0); MCV 93.6 fL (80.0-100.0); Mean Platelet Volume 7.2; Monocytes # (A) 0.4 k/uL (0-1.0); Monocytes % (A) 4 %; Neutrophils # (A) 9.4 k/uL (1.3-7.7); Neutrophils % (A) 76 %; Platelet Count 203 k/uL (150-450); RBC 4.36 m/uL (3.80-5.40); RDW 12.4 % (11.5-15.5); WBC 12.4 k/uL (3.8-10.6)
[2023-04-14 17:17] LABS: Appearance,Urine Clear (Clear); Bilirubin,Urine Negative (Negative); Blood,Urine Negative (Negative); Color,Urine Light Yellow; Glucose,Urine (UA) Negative (Negative); Ketones,Urine Negative (Negative); Leukocyte Esterase,Urine Negative (Negative); Nitrite,Urine Negative (Negative); Protein,Urine Negative (Negative); Urobilinogen,Urine <2.0 mg/dL (<2.0)
[2023-04-14 17:17] LABS: ALT 24 U/L (4-34); AST 28 U/L (14-36); African American GFR (CKD) >90 (>60 ml/min/1.73 sqM); Albumin 3.7 g/dL (3.5-5.0); Alkaline Phosphatase 52 U/L (38-126); Amylase 34 U/L (30-110); Anion Gap 6 mmol/L; Blood Urea Nitrogen 17 mg/dL (7-17); Calcium 8.8 mg/dL (8.4-10.2); Carbon Dioxide 26 mmol/L (22-30); Chloride 102 mmol/L (98-107); Glucose 93 mg/dL (74-99); Lipase 213 U/L (23-300); Non-African American GFR(CKD) >90 (>60 ml/min/1.73 sqM); Potassium 4.1 mmol/L (3.5-5.1); Sodium 134 mmol/L (137-145); Total Bilirubin 0.4 mg/dL (0.2-1.3); Total Protein 6.2 g/dL (6.3-8.2)
[2023-04-14] MEDS ORDERED: IBUPROFEN 600 MG STARTER PACK 4 TAB BTL PO STA (17:51)
[2023-04-14] MEDS ORDERED: METOCLOPRAMIDE 10 MG TAB PO STA (17:51)
[2023-04-14] MEDS ORDERED: ONDANSETRON ODT 4 MG TAB PO STA (17:51)
[2023-04-14] MEDS ORDERED: ONDANSETRON 4 MG ODT STARTER PACK 2 TAB BTL PO STA (17:51)
[2023-04-14] MEDS ORDERED: DICYCLOMINE 20 MG TAB PO STA (17:51)
== END 2023-04-14 18:24 | disposition home or self-care (01) ==
LOC: EC 14:32
DX: R10.30 Lower abdominal pain, unspecified (principal); J45.909 Unspecified asthma, uncomplicated; Z79.51 Long term (current) use of inhaled steroids
CPT/HCPCS: 36415; 74018; 80053; 81003; 81025; 82150; 83605; 83690; 85025; 99284

== ENCOUNTER 2024-05-01 14:11 | Emergency (ER) | payer OTHER ==
--- NOTE | 2024-05-01 15:47 | ED ---
Recheck HPI - General Source: patient, RN notes reviewed Mode of arrival: ambulatory Limitations: no limitations - History of Present Illness Onset/Timin -: days(s) <Titus Wallace - Last Filed: 05/01/24 15:45> - General Source: patient, RN notes reviewed, old records reviewed Mode of arrival: ambulatory Limitations: no limitations - History of Present Illness Returns Today for: persistent/worsening pain related to initial visit Symptoms Since Prior Visit: worsening pain Context: ran out of medication Associated Symptoms: abdominal pain Treatments Prior to Arrival: Given Pain Meds on <Iggy Woodson - Last Filed: 05/05/24 17:28> - General Chief Complaint: Recheck/Abnormal Lab/Rx Stated Complaint: Post-op pain Time Seen by Provider: 05/01/24 14:27 - History of Present Illness Initial Comments: Quick note: This is a 44-year-old female presenting with umbilical pain (7/10) x 3 days. Patient describes pain as "scraping" and dull. 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 Patient Dors is use of Percocet with some pain relief. Denies fever, chills, dizziness, chest pain, dyspnea, N/V/D, urinary symptoms, vaginal bleeding, vaginal discharge. 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 Patient comes in for postoperative pain (Iggy Woodson) - Related Data Home Medications Medication Instructions Recorded Confirmed Fluticasone/Umeclidin/Vilanter 1 puff INHALATION RT-DAILY@1630 04/14/23 04/14/23 [Trelegy Ellipta 100-62.5-25] Vit No.179/Iron/Folic 1 tab PO DAILY 04/14/23 04/14/23 [ Tablet] Allergies Allergy/AdvReac Type Severity Reaction Status Date / Time No Known Allergies Allergy Verified 05/01/24 14:44 Review of Systems ROS Other: All systems not noted in ROS Statement are negative. <Titus Wallace - Last Filed: 05/01/24 15:45> ROS Other: All systems not noted in ROS Statement are negative. <KandiceIggy B - Last Filed: 05/05/24 17:28> ROS Statement: Those systems with pertinent positive or pertinent negative responses have been documented in the HPI. Past Medical History Past Medical History: Asthma, Renal Disease Additional Past Medical History / Comment(s): ibs History of Any Multi-Drug Resistant Organisms: None Reported Additional Past Surgical History / Comment(s): ovarian cyst Past Anesthesia/Blood Transfusion Reactions: No Reported Reaction Past Psychological History: Anxiety Smoking Status: Never smoker Past Alcohol Use History: None Reported Past Drug Use History: None Reported - Past Family History Mother Family Medical History: Hypertension, Thyroid Disorder Sister(s) Family Medical History: Asthma, COPD <Titus Wallace - Last Filed: 05/01/24 15:45> General Exam Limitations: no limitations <Titus Wallace - Last Filed: 05/01/24 15:45> General appearance: alert, in no apparent distress Head exam: Present: atraumatic, normocephalic, normal inspection Eye exam: Present: normal appearance, PERRL, EOMI. Absent: scleral icterus, conjunctival injection, periorbital swelling ENT exam: Present: normal exam, mucous membranes moist Neck exam: Present: normal inspection. Absent: tenderness, meningismus, lymphadenopathy Respiratory exam: Present: normal lung sounds bilaterally. Absent: respiratory distress, wheezes, rales, rhonchi, stridor Cardiovascular Exam: Present: regular rate, normal rhythm, normal heart sounds. Absent: systolic murmur, diastolic murmur, rubs, gallop, clicks GI/Abdominal exam: Present: soft, normal bowel sounds. Absent: distended, tenderness, guarding, rebound, rigid Extremities exam: Present: normal inspection, full ROM, normal capillary refill. Absent: tenderness, pedal edema, joint swelling, calf tenderness Back exam: Present: normal inspection Neurological exam: Present: alert, oriented X3, CN II-XII intact Psychiatric exam: Present: normal affect, normal mood Skin exam: Present: warm, dry, intact, normal color. Absent: rash <RubishahidaIggy - Last Filed: 05/05/24 17:28> - General Exam Comments Initial Comments: Visual Physical Exam Vital signs reviewed General: Well-appearing, nontoxic, no acute distress. Head: Normocephalic, atraumatic Eyes: PERRLA, EOMI ENT: Airway patent Chest: Nonlabored breathing Skin: No visual rash, normal skin tone Neuro: Alert and oriented 3 Musculoskeletal: No gross abnormalities (Titus Wallace) Course <Iggy Woodson - Last Filed: 05/05/24 17:28> Vital Signs 05/01/24 05/01/24 14:42 22:07 Temperature 98.6 F 98.8 F Pulse Rate 90 76 Respiratory 18 16 Rate Blood Pressure 116/71 118/76 O2 Sat by Pulse 97 100 Oximetry - Reevaluation(s) Reevaluation #1: 05/01/24 21:30 Medical records reviewed (Iggy Woodson) Reevaluation #2: 05/01/24 21:30 Patient symptoms improved (Iggy Woodson) Reevaluation #3: 05/01/24 22:03 Patient informed of results and questions answered (Iggy Woodson) Reevaluation #4: Was pt. sent in by a medical professional or institution (, PA, LEAD REFINERY SUPERVISOR, urgent care, hospital, or halfway...) When possible be specific @ -no Did you speak to anyone other than the patient for history (EMS, parent, family, police, friend...)? What history was obtained from this source @ -no Did you review nursing and triage notes (agree or disagree)? Why? @ -agree Are old charts reviewed (outside hosp., previous admission, EMS record, old EKG, old radiological studies, urgent care reports/EKG's, halfway records)? Report findings @ -yes Differential Diagnosis (chest pain, altered mental status, abdominal pain women, abdominal pain men, vaginal bleeding, weakness, fever, dyspnea, syncope, headache, dizziness, GI bleed, back pain, seizure, CVA, palpatations, mental health, musculoskeletal)? @ -prior EKG interpreted by me (3pts min.). @ -no X-rays interpreted by me (1pt min.). @ -no CT interpreted by me (1pt min.). @ -yes negative for acute disease U/S interpreted by me (1pt. min.). @ -no What testing was considered but not performed or refused? (CT, X-rays, U/S, labs)? Why? @ -none What meds were considered but not given or refused? Why? @ -none Did you discuss the management of the patient with other professionals (professionals i.e. , PA, LEAD REFINERY SUPERVISOR, lab, RT, psych nurse, social work manager, protection agent, teacher, veterans service officer, patient case coordinator)? Give summary @ -no Was smoking cessation discussed for >3mins.? @ -no Was critical care preformed (if so, how long)? @ -no Were there social determinants of health that impacted care today? How? (Homelessness, low income, unemployed, alcoholism, drug addiction, transp ortation, low edu. Level, literacy, decrease access to med. care, assisted, rehab)? @ -none Was there de-escalation of care discussed even if they declined (Discuss DNR or withdrawal of care, Hospice)? DNR status @ -no What co-morbidities impacted this encounter? (DM, HTN, Smoking, COPD, CAD, Cancer, CVA, ARF, Chemo, Hep., AIDS, mental health diagnosis, sleep apnea, morbid obesity)? @ -none Was patient admitted / discharged? Hospital course, mention meds given and route, prescriptions, significant lab abnormalities, going to OR and other pertinent info. @ - 44 female for postoperative pain pain is well-controlled patient can be discharged home Discharge Undiagnosed new problem with uncertain prognosis? @ -no Drug Therapy requiring intensive monitoring for toxicity (Heparin, Nitro, Insulin, Cardizem)? @ -no Were any procedures done? @ -no Diagnosis/symptom? @ -Postoperative pain Acute, or Chronic, or Acute on Chronic? @ -Acute Uncomplicated (without systemic symptoms) or Complicated (systemic symptoms)? @ -Complicated Side effects of treatment? @ -no Exacerbation, Progression, or Severe Exacerbation? @ -exacerbation Poses a threat to life or bodily function? How? (Chest pain, USA, [place], pneumonia, PE, COPD, DKA, ARF, appy, cholecystitis, CVA, Diverticulitis, Homicidal, [place], threat to staff... and all critical care pts) @ -yes postoperative complication (Iggy Woodson) Reevaluation #5: Differential Abdominal Pain Women: Appendicitis, Cholecystitis, diverticulosis, ischemic bowel, pancreatitis, hepatitis, UTI, gastroenteritis, AAA, incarcerated hernia, bowel obstruction, constipation, inflammatory bowel, hepatitis, peptic ulcer disease, splenic infarction, perforated viscus, vulvitis, ovarian torsion, PID, kidney stone, placenta abruption, this is not meant to be an all-inclusive list (Iggy Woodson) Medical Decision Making <Titus Wallace - Last Filed: 05/01/24 15:45> - Lab Data Result diagrams: 05/01/24 20:13 05/01/24 20:13 - Radiology Data Radiology results: report reviewed (CT abdomen pelvis negative for acute disease), image reviewed <Iggy Woodson - Last Filed: 05/05/24 17:28> - Medical Decision Making I completed the quick note portion of this chart signed Titus Wallace PA-C (Titus Wallace) 44 female for postoperative pain pain is well-controlled patient can be discharged home (Iggy Woodson) - Lab Data Lab Results 05/01/24 05/01/24 05/01/24 Range/Units 20:13 20:13 20:13 WBC 8.5 (3.8-10.6) k/uL RBC 4.30 (3.80-5.40) m/uL Hgb 13.5 (11.4-16.0) gm/dL Hct 39.6 (34.0-46.0) % MCV 92.0 (80.0-100.0) fL MCH 31.4 (25.0-35.0) pg MCHC 34.1 (31.0-37.0) g/dL RDW 12.1 (11.5-15.5) % Plt Count 201 (150-450) k/uL MPV 7.1 Neutrophils % 59 % Lymphocytes % 33 % Monocytes % 5 % Eosinophils % 1 % Basophils % 0 % Neutrophils # 5.0 (1.3-7.7) k/uL Lymphocytes # 2.7 (1.0-4.8) k/uL Monocytes # 0.5 (0-1.0) k/uL Eosinophils # 0.1 (0-0.7) k/uL Basophils # 0.0 (0-0.2) k/uL PT 10.4 (10.0-12.5) sec INR 0.9 (<1.2) APTT 20.8 L (22.0-30.0) sec Sodium 137 (137-145) mmol/L Potassium 4.3 (3.5-5.1) mmol/L Chloride 103 (98-107) mmol/L Carbon Dioxide 26 (22-30) mmol/L Anion Gap 8 mmol/L BUN 19 H (7-17) mg/dL Creatinine 0.79 (0.52-1.04) mg/dL Est GFR (CKD-EPI)AfAm >90 (>60 ml/min/1.73 sqM) Est GFR (CKD-EPI)NonAf >90 (>60 ml/min/1.73 sqM) Glucose 92 (74-99) mg/dL Plasma Lactic Acid Saulo (0.7-2.0) mmol/L Calcium 9.5 (8.4-10.2) mg/dL Total Bilirubin 0.5 (0.2-1.3) mg/dL AST 22 (14-36) U/L ALT 16 (4-34) U/L Alkaline Phosphatase 50 (38-126) U/L Total Protein 7.1 (6.3-8.2) g/dL Albumin 4.5 (3.5-5.0) g/dL Amylase 48 (30-110) U/L Lipase 327 H (23-300) U/L Urine Color Urine Appearance (Clear) Urine pH (5.0-8.0) Ur Specific [place] (1.001-1.035) Urine Protein (Negative) Urine Glucose (UA) (Negative) Urine Ketones (Negative) Urine Blood (Negative) Urine Nitrite (Negative) Urine Bilirubin (Negative) Urine Urobilinogen (<2.0) mg/dL Ur Leukocyte Esterase (Negative) Urine RBC (0-5) /hpf Urine WBC (0-5) /hpf Ur Squamous Epith Cells (0-4) /hpf Urine HCG, Qual (Not Detectd) 05/01/24 05/01/24 05/01/24 Range/Units 20:13 20:25 20:25 WBC (3.8-10.6) k/uL RBC (3.80-5.40) m/uL Hgb (11.4-16.0) gm/dL Hct (34.0-46.0) % MCV (80.0-100.0) fL MCH (25.0-35.0) pg MCHC (31.0-37.0) g/dL RDW (11.5-15.5) % Plt Count (150-450) k/uL MPV Neutrophils % % Lymphocytes % % Monocytes % % Eosinophils % % Basophils % % Neutrophils # (1.3-7.7) k/uL Lymphocytes # (1.0-4.8) k/uL Monocytes # (0-1.0) k/uL Eosinophils # (0-0.7) k/uL Basophils # (0-0.2) k/uL PT (10.0-12.5) sec INR (<1.2) APTT (22.0-30.0) sec Sodium (137-145) mmol/L Potassium (3.5-5.1) mmol/L Chloride (98-107) mmol/L Carbon Dioxide (22-30) mmol/L Anion Gap mmol/L BUN (7-17) mg/dL Creatinine (0.52-1.04) mg/dL Est GFR (CKD-EPI)AfAm (>60 ml/min/1.73 sqM) Est GFR (CKD-EPI)NonAf (>60 ml/min/1.73 sqM) Glucose (74-99) mg/dL Plasma Lactic Acid Saulo 1.3 (0.7-2.0) mmol/L Calcium (8.4-10.2) mg/dL Total Bilirubin (0.2-1.3) mg/dL AST (14-36) U/L ALT (4-34) U/L Alkaline Phosphatase (38-126) U/L Total Protein (6.3-8.2) g/dL Albumin (3.5-5.0) g/dL Amylase (30-110) U/L Lipase (23-300) U/L Urine Color Colorless Urine Appearance Clear (Clear) Urine pH 6.5 (5.0-8.0) Ur Specific [place] 1.009 (1.001-1.035) Urine Protein Negative (Negative) Urine Glucose (UA) Negative (Negative) Urine Ketones Negative (Negative) Urine Blood Negative (Negative) Urine Nitrite Negative (Negative) Urine Bilirubin Negative (Negative) Urine Urobilinogen <2.0 (<2.0) mg/dL Ur Leukocyte Esterase Large H (Negative) Urine RBC 1 (0-5) /hpf Urine WBC 25 H (0-5) /hpf Ur Squamous Epith Cells 2 (0-4) /hpf Urine HCG, Qual Not Detected (Not Detectd) Disposition <Titus Wallace - Last Filed: 05/01/24 15:45> Is patient prescribed a controlled substance at d/c from ED?: No Time of Disposition: 22:00 <Iggy Woodson - Last Filed: 05/05/24 17:28> Clinical Impression: Postoperative pain Disposition: HOME SELF-CARE Condition: Good Instructions (If sedation given, give patient instructions): Pain Management After Surgery (DC) Referrals: Nonstaff,Physician [Primary Care Provider] - 1-2 days
[2024-05-01 20:33] LABS: Basophils % (A) 0 %; Eosinophils # (A) 0.1 k/uL (0-0.7); Eosinophils % (A) 1 %; HCT 39.6 % (34.0-46.0); HGB 13.5 gm/dL (11.4-16.0); Lymphocytes # (A) 2.7 k/uL (1.0-4.8); Lymphocytes % (A) 33 %; MCH 31.4 pg (25.0-35.0); MCHC 34.1 g/dL (31.0-37.0); Mean Platelet Volume 7.1; Monocytes # (A) 0.5 k/uL (0-1.0); Monocytes % (A) 5 %; Neutrophils % (A) 59 %; Platelet Count 201 k/uL (150-450); RDW 12.1 % (11.5-15.5); WBC 8.5 k/uL (3.8-10.6)
[2024-05-01 20:41] LABS: Appearance,Urine Clear (Clear); Bilirubin,Urine Negative (Negative); Blood,Urine Negative (Negative); Color,Urine Colorless; Glucose,Urine (UA) Negative (Negative); Ketones,Urine Negative (Negative); Leukocyte Esterase,Urine Large (Negative); Nitrite,Urine Negative (Negative); PH, Urine 6.5 (5.0-8.0); Protein,Urine Negative (Negative); RBC,Urine 1 /hpf (0-5); Specific Gravity,Urine 1.009 (1.001-1.035); Squamous Epithelial Cell,Urine 2 /hpf (0-4); Urobilinogen,Urine <2.0 mg/dL (<2.0); WBC,Urine 25 /hpf (0-5)
[2024-05-01 20:48] LABS: ALT 16 U/L (4-34); African American GFR (CKD) >90 (>60 ml/min/1.73 sqM); Albumin 4.5 g/dL (3.5-5.0); Amylase 48 U/L (30-110); Anion Gap 8 mmol/L; Blood Urea Nitrogen 19 mg/dL (7-17); Calcium 9.5 mg/dL (8.4-10.2); Carbon Dioxide 26 mmol/L (22-30); Chloride 103 mmol/L (98-107); Glucose 92 mg/dL (74-99); Lipase 327 U/L (23-300); Non-African American GFR(CKD) >90 (>60 ml/min/1.73 sqM); Sodium 137 mmol/L (137-145); Total Bilirubin 0.5 mg/dL (0.2-1.3); Total Protein 7.1 g/dL (6.3-8.2)
[2024-05-01 20:50] LABS: AST 22 U/L (14-36); Alkaline Phosphatase 50 U/L (38-126); INR 0.9 (<1.2); Partial Thromboplastin Time 20.8 sec (22.0-30.0); Potassium 4.3 mmol/L (3.5-5.1); Prothrombin Time 10.4 sec (10.0-12.5)
--- NOTE | 2024-05-01 21:52 | CT ---
EXAMINATION TYPE: CT abdomen pelvis w con DATE OF EXAM: 05/01/2024 9:46 PM COMPARISON: CT abdomen pelvis most recent from 01/04/2022 CLINICAL INDICATION: Female, 44 years old with history of Lower abd pain, recent ovarian neoplasm dis covered; Lower abd pain, recent ovarian neoplasm discovered. 100 ml Iso 300 injected. No oral contras t. Priors on pacs. TECHNIQUE: Axial CT abdomen pelvis w con;Sagittal and coronal reformats were created on a separate w orkstation. Contrast used:100ml mL of Isovue 300 with IV Contrast, (none if empty) Oral contrast used: without Oral Contrast (none if empty) CT DLP: 1448.8 mGycm, Automated exposure control for dose reduction was used. FINDINGS: LOWER CHEST: Unremarkable ABDOMEN LIVER: Unremarkable GALLBLADDER AND BILE DUCTS: Unremarkable. PANCREAS: Unremarkable. SPLEEN: Unremarkable. ADRENAL GLANDS: Unremarkable. KIDNEYS AND URETERS: No evidence of hydronephrosis or renal calculus. The ureters are unremarkable. PELVIS BLADDER: No evidence for wall thickening or mass given limitations of exam. REPRODUCTIVE: The left ovary is not visualized. The right ovary is grossly unremarkable in CT. Lobula r contour to liver suggestive of fibroid. ABDOMEN & PELVIS STOMACH AND BOWEL: No evidence of bowel obstruction. The appendix is normal. Scattered colonic divert icula present PERITONEUM/RETROPERITONEUM: No evidence of pneumoperitoneum or free fluid. VASCULATURE: No evidence of aortic aneurysm. MUSCULOSKELETAL: No acute osseous abnormalities LYMPH NODES: No gross evidence for lymphadenopathy. SOFT TISSUE/ABDOMINAL WALL: Unremarkable IMPRESSION: 1. No evidence for acute abdominal process. The appendix is normal. No obstructive uropathy or renal calculus. 2. The left ovary is not visualized and may be surgically absent. 3. Right ovary is grossly unremarkable. 4. Fibroid changes in the uterus. 5. Colonic diverticulosis. [facility], , 05/01/2024 9:50 PM
[2024-05-01] MEDS: SODIUM CHLORIDE 0.9% 500 ML 500 ML IV STA (22:02)
[2024-05-01] MEDS: PANTOPRAZOLE 40 MG/10 ML VIAL IVP STA (22:02)
[2024-05-01] MEDS: SODIUM CHLORIDE 0.9% 1,000 ML IV STA (22:04)
[2024-05-01] MEDS: ONDANSETRON 4 MG/2 ML VIAL IVP STA (22:04)
[2024-05-01] MEDS: HYDROmorphone 1 MG/ML 1 ML SYRINGE IVP STA (22:06)
[2024-05-01 22:08] VITALS: BP 118/76; PULSE 76; RESP 16; TEMP 98.8
== END 2024-05-01 22:47 | disposition home or self-care (01) ==
LOC: EC 14:11
DX: G89.18 Other acute postprocedural pain (principal)
CPT/HCPCS: 36415; 80053; 82150; 83605; 83690; 85025; 85610; 85730; 81001; 81025; 87086; 74177; 99284; 96374; 96361; J1171; Q9967

== ENCOUNTER 2024-05-18 13:26 | Emergency (ER) | payer OTHER ==
--- NOTE | 2024-05-18 14:02 | ED ---
General Adult HPI - General Chief complaint: Abdominal Pain Stated complaint: side pain-fall on ice friday Time Seen by Provider: 05/18/24 13:42 Source: patient, RN notes reviewed Mode of arrival: ambulatory Limitations: no limitations - History of Present Illness Initial comments: Patient is a 44 year old female who presents to the ED after a fall on Friday05/14/24. She stats that she was helping someone into the car and slipped on ice and fell backwards, hitting her head. She states she did not lose consciousness. She states that she had a headache for a day but does not currently. She states that she went to her chiropractor and is feeling better, other than her "hips". She states that she has a dull 10/10 pain in both hips. She states she is able to walk and move around, but going from laying flat to up right is painful. She denies any numbness, tingling, chest pain, cervical spine tenderness, shortness of breath, back pain, urinary or bowel changes, or vision changes. Of note, she did have surgery for ovary removal on 04/07/25, and there were no complications. - Related Data Home Medications Medication Instructions Recorded Confirmed Fluticasone/Umeclidin/Vilanter 1 puff INHALATION RT-DAILY@1630 04/14/23 04/14/23 [Trelegy Ellipta 100-62.5-25] Vit No.179/Iron/Folic 1 tab PO DAILY 04/14/23 04/14/23 [ Tablet] Allergies Allergy/AdvReac Type Severity Reaction Status Date / Time No Known Allergies Allergy Verified 05/18/24 13:47 Review of Systems ROS Statement: Those systems with pertinent positive or pertinent negative responses have been documented in the HPI. ROS Other: All systems not noted in ROS Statement are negative. Past Medical History Past Medical History: Asthma, Renal Disease Additional Past Medical History / Comment(s): ibs History of Any Multi-Drug Resistant Organisms: None Reported Additional Past Surgical History / Comment(s): ovarian cyst Past Anesthesia/Blood Transfusion Reactions: No Reported Reaction Past Psychological History: Anxiety Smoking Status: Never smoker Past Alcohol Use History: None Reported Past Drug Use History: None Reported - Past Family History Mother Family Medical History: Hypertension, Thyroid Disorder Sister(s) Family Medical History: Asthma, COPD General Exam Limitations: no limitations General appearance: alert, anxious Head exam: Present: atraumatic, normocephalic, normal inspection Eye exam: Present: normal appearance, PERRL, EOMI. Absent: scleral icterus, conjunctival injection, periorbital swelling ENT exam: Present: normal exam, normal oropharynx, mucous membranes moist Neck exam: Present: normal inspection, full ROM. Absent: tenderness, meningismus, lymphadenopathy Respiratory exam: Present: normal lung sounds bilaterally. Absent: respiratory distress, wheezes, rales, rhonchi, stridor Cardiovascular Exam: Present: regular rate, normal rhythm, normal heart sounds. Absent: systolic murmur, diastolic murmur, rubs, gallop, clicks GI/Abdominal exam: Present: soft, normal bowel sounds. Absent: distended, tenderness, guarding, rebound, rigid Left Hip exam: Present: tenderness Upper Leg exam: Present: normal inspection, full ROM. Absent: tenderness Knee exam: Present: normal inspection, full ROM. Absent: tenderness Lower Leg exam: Present: normal inspection, full ROM. Absent: tenderness Ankle exam: Present: normal inspection, full ROM. Absent: tenderness Foot/Toe exam: Present: normal inspection, full ROM. Absent: tenderness Right Hip exam: Present: tenderness Upper Leg exam: Present: normal inspection, full ROM. Absent: tenderness Knee exam: Present: normal inspection, full ROM. Absent: tenderness Lower Leg exam: Present: normal inspection, full ROM. Absent: tenderness Ankle exam: Present: normal inspection, full ROM. Absent: tenderness Foot/Toe exam: Present: normal inspection, full ROM. Absent: tenderness Back exam: Present: normal inspection Neurological exam: Present: alert, oriented X3, CN II-XII intact, reflexes normal. Absent: motor sensory deficit Skin exam: Present: warm, dry, intact, normal color. Absent: rash Course Vital Signs 05/18/24 13:43 Temperature 98.8 F Pulse Rate 83 Respiratory 17 Rate Blood Pressure 148/77 O2 Sat by Pulse 97 Oximetry Medical Decision Making - Medical Decision Making Was pt. sent in by a medical professional or institution (, PA, HEEL BOOM OPERATOR, urgent care, hospital, or detention...) When possible be specific @ -No Did you speak to anyone other than the patient for history (EMS, parent, family, police, friend...)? What history was obtained from this source @ -No Did you review nursing and triage notes (agree or disagree)? Why? @ -I reviewed and agree with nursing and triage notes Were old charts reviewed (outside hosp., previous admission, EMS record, old EKG, old radiological studies, urgent care reports/EKG's, detention records)? Report findings @ -No old charts were reviewed Differential Diagnosis (chest pain, altered mental status, abdominal pain women, abdominal pain men, vaginal bleeding, weakness, fever, dyspnea, syncope, headache, dizziness, GI bleed, back pain, seizure, CVA, palpatations, mental health, musculoskeletal)? @ -[Fall, intracranial hemorrhage, skull fracture, hip fracture, hip contusion pelvis fracture EKG interpreted by me (3pts min.). @ -None X-rays interpreted by me (1pt min.). @ -X-ray pelvis AP no acute fracture CT interpreted by me (1pt min.). @ -CT brain shows no acute intracranial hemorrhage, mass effect, or fracture. U/S interpreted by me (1pt. min.). @ -None done What testing was considered but not performed or refused? (CT, X-rays, U/S, labs)? Why? @ -None What meds were considered but not given or refused? Why? @ -None Did you discuss the management of the patient with other professionals (professionals i.e. , PA, HEEL BOOM OPERATOR, lab, RT, psych nurse, director of social media marketing, legal records clerk, teacher, business enterprise officer, hospice case manager)? Give summary @ -No Was smoking cessation discussed for >3mins.? @ -No Was critical care preformed (if so, how long)? @ -No Were there social determinants of health that impacted care today? How? (Homelessness, low income, unemployed, alcoholism, drug addiction, transporta tion, low edu. Level, literacy, decrease access to med. care, senior care, rehab)? @ -No Was there de-escalation of care discussed even if they declined (Discuss DNR or withdrawal of care, Hospice)? DNR status @ -No What co-morbidities impacted this encounter? (DM, HTN, Smoking, COPD, CAD, Cancer, CVA, ARF, Chemo, Hep., AIDS, mental health diagnosis, sleep apnea, morbid obesity)? @ -None Was patient admitted / discharged? Hospital course, mention meds given and route, prescriptions, significant lab abnormalities, going to OR and other pertinent info. @ -Discharge patient presented for a fall. Imaging is negative patient did have CT completed for severe mechanism of injury fall with headache. Undiagnosed new problem with uncertain prognosis? @ -No Drug Therapy requiring intensive monitoring for toxicity (Heparin, Nitro, Insulin, Cardizem)? @ -No Were any procedures done? @ -No Diagnosis/symptom? @ -Fall, head injury, pelvic contusion Acute, or Chronic, or Acute on Chronic? @ -Acute Uncomplicated (without systemic symptoms) or Complicated (systemic symptoms)? @ -Uncomplicated Side effects of treatment? @ -No Exacerbation, Progression, or Severe Exacerbation? @ -No Poses a threat to life or bodily function? How? (Chest pain, USA, [place], pneumonia, PE, COPD, DKA, ARF, appy, cholecystitis, CVA, Diverticulitis, Homicidal, Suicidal, threat to staff... and all critical care pts) @ -No Disposition Clinical Impression: Fall, Contusion, hip, Head injury Disposition: HOME SELF-CARE Condition: Stable Instructions (If sedation given, give patient instructions): Contusion in Adults (ED) Additional Instructions: Please return to the Emergency Department if symptoms worsen or any other concerns. Is patient prescribed a controlled substance at d/c from ED?: No Referrals: Lloyd Colon DO [Primary Care Provider] - 1-2 days Time of Disposition: 15:23
--- NOTE | 2024-05-18 14:26 | XR ---
EXAMINATION TYPE: XR pelvis AP view DATE OF EXAM: 05/18/2024 2:21 PM COMPARISON: None. CLINICAL INDICATION: Female, 44 years old with history of fall, pain TECHNIQUE: AP view(s) obtained. FINDINGS: Femoral heads articulate with the acetabulum. Symphysis pubis and sacroiliac joints are normal. Daphne l colonic bowel gas is present. No acute fracture or dislocation evident. IMPRESSION: 1. No acute osseous abnormality AP pelvis [facility], , 05/18/2024 2:24 PM
--- NOTE | 2024-05-18 15:19 | CT ---
EXAMINATION TYPE: CT brain wo con DATE OF EXAM: 05/18/2024 COMPARISON: 06/22/2017 CLINICAL INDICATION: Female, 44 years old with history of fall; [facility], fell [address] DLP: 1095.4 mGycm Automated exposure control for dose reduction was used. Findings: The ventricles, basal cisterns and sulci over the convexities are within normal limits and there is n o mass effect or shift of midline structures. No abnormal density is seen throughout the brain parenchyma and there is no acute intra or extra-axia l hemorrhage. The posterior fossa including the brainstem, fourth ventricle and cerebellar pontine angles appear no rmal. Intraorbital contents appear normal and symmetric. Visualized paranasal sinuses and mastoid air cells are well aerated. The calvarium is intact. IMPRESSION: No significant abnormality seen. There is no acute bleed or mass effect. [facility], , 05/18/2024 3:17 PM
[2024-05-18 15:53] VITALS: BP 142/79; PULSE 80; RESP 16; TEMP 98.4
== END 2024-05-18 15:53 | disposition home or self-care (01) ==
LOC: EC 13:26
DX: S70.01XA Contusion of right hip, initial encounter (principal); S70.02XA Contusion of left hip, initial encounter; S09.90XA Unspecified injury of head, initial encounter; W00.0XXA Fall on same level due to ice and snow, initial encounter
CPT/HCPCS: 70450; 72170; 99284

== ENCOUNTER 2024-11-18 11:48 | Emergency (ER) | payer OTHER ==
[2024-11-18 12:29] VITALS: RESP 18
[2024-11-18] MEDS: methylPREDNISolone SOD SUCCI 125 MG/2 ML VIAL IM ONE (12:55)
--- NOTE | 2024-11-18 13:14 | XR ---
EXAMINATION TYPE: XR chest 2V DATE OF EXAM: 11/18/2024 1:09 PM COMPARISON: 08/16/2022 CLINICAL INDICATION: Female, 44 years old with history of cough, , TECHNIQUE: PA and lateral views FINDINGS: The cardiomediastinal silhouette, aorta, and pulmonary vasculature are within normal limits. Some str [place] atelectasis is noted at the right perihilar region. Increased patchy medial right basilar opacit y. Remainder of the lungs and pleural spaces are clear. IMPRESSION: Increased patchy atelectasis versus developing infiltrate medial right base. [facility], Workstation: [facility], 11/18/2024 1:11 PM
[2024-11-18 13:34] LABS: RSV Not Detected (Not Detectd)
[2024-11-18] MEDS: IPRATROPIUM-ALBUTEROL 3 ML NEB INHALATION STA (13:48)
--- NOTE | 2024-11-18 13:48 | ED ---
General Adult HPI - General Chief complaint: Upper Respiratory Infection Stated complaint: Cough,Congestion Time Seen by Provider: 11/18/24 12:40 Source: patient, RN notes reviewed, old records reviewed Mode of arrival: ambulatory Limitations: no limitations - History of Present Illness Initial comments: 44-year-old female presents emergency department complaining of cough, congestion. Has a history of asthma. States that for the last few days she has been having cough and congestion. Has been attempting to treat with inhalers at home without much success. Presents for further evaluation of her concern for possible pneumonia. No fevers. No known sick contacts other than her boyfriend. - Related Data Home Medications Medication Instructions Recorded Confirmed Fluticasone/Umeclidin/Vilanter 1 puff INHALATION RT-DAILY@1630 04/14/23 04/14/23 [Trelegy Ellipta 100-62.5-25] Vit No.179/Iron/Folic 1 tab PO DAILY 04/14/23 04/14/23 [ Tablet] Previous Rx's Medication Instructions Recorded Albuterol Sulfate [Ventolin HFA] 1 - 2 puff INHALATION Q6H PRN #1 11/18/24 each Amoxic-Pot Clav 875-125Mg 1 tab PO BID 10 Days #20 tab 11/18/24 [Augmentin 875-125] predniSONE [Deltasone] 40 mg PO DAILY 5 Days #10 tab 11/18/24 Allergies Allergy/AdvReac Type Severity Reaction Status Date / Time No Known Allergies Allergy Verified 05/18/24 13:47 Review of Systems ROS Statement: Those systems with pertinent positive or pertinent negative responses have been documented in the HPI. Review of Systems: CONST: Denies fever EYES: Denies blurry vision ENT: Denies nasal congestion C/V: Denies Chest pain RESP: Endorses cough, congestion GI: Denies abdominal pain : Denies dysuria SKIN: Denies rash. MSK: Denies joint pain. NEURO: Denies headache ROS Other: All systems not noted in ROS Statement are negative. Past Medical History Past Medical History: Asthma, Renal Disease Additional Past Medical History / Comment(s): ibs History of Any Multi-Drug Resistant Organisms: None Reported Additional Past Surgical History / Comment(s): ovarian cyst Past Anesthesia/Blood Transfusion Reactions: No Reported Reaction Past Psychological History: Anxiety Smoking Status: Never smoker Past Alcohol Use History: None Reported Past Drug Use History: None Reported - Past Family History Mother Family Medical History: Hypertension, Thyroid Disorder Sister(s) Family Medical History: Asthma, COPD General Exam - General Exam Comments Initial Comments: General: Appears in no acute distress. HEAD: Normal with no signs of head trauma. EYES: EOMI ENT: Hearing grossly intact, normal oropharynx. Moist mucous membranes. RESPIRATORY: Mild bilateral end expiratory wheezing. No respiratory distress. No hypoxia. C/V: Regular rate and rhythm. S1 and S2 auscultated, peripheral pulses 2+ and intact throughout ABD: Abd is soft, nontender, nondistended EXT: No obvious deformity. SKIN: No rashes or lesions observed on exposed skin. NEURO: Alert and oriented x 4. Limitations: no limitations Course Vital Signs 11/18/24 11/18/24 12:05 12:24 Temperature 97.7 F Pulse Rate 97 Respiratory 20 18 Rate Blood Pressure 147/82 O2 Sat by Pulse 98 Oximetry Medical Decision Making - Medical Decision Making Was pt. sent in by a medical professional or institution (Dr. PA, RADIO INTERFERENCE SUPERVISOR, urgent care, hospital, or halfway...) When possible be specific @ -No Did you speak to anyone other than the patient for history (EMS, parent, family, police, friend...)? What history was obtained from this source @ -No Did you review nursing and triage notes (agree or disagree)? Why? @ -I reviewed and agree with nursing and triage notes Were old charts reviewed (outside hosp., previous admission, EMS record, old EKG, old radiological studies, urgent care reports/EKG's, halfway records)? Report findings @ -No old charts were reviewed Differential Diagnosis (chest pain, altered mental status, abdominal pain women, abdominal pain men, vaginal bleeding, weakness, fever, dyspnea, syncope, headache, dizziness, GI bleed, back pain, seizure, CVA, palpatations, mental health, musculoskeletal)? @ -Pneumonia, COVID, flu, RSV, asthma exacerbation. This list is not all- inclusive. EKG interpreted by me (3pts min.). @ -None done X-rays interpreted by me (1pt min.). @ -Chest x-ray shows early developing right lower lobe pneumonia. CT interpreted by me (1pt min.). @ -None done U/S interpreted by me (1pt. min.). @ -None done What testing was considered but not performed or refused? (CT, X-rays, U/S, labs)? Why? @ -None What meds were considered but not given or refused? Why? @ -None Did you discuss the management of the patient with other professionals (professionals i.e. , PA, RADIO INTERFERENCE SUPERVISOR, lab, RT, psych nurse, social work lecturer, bank clerk, teacher, sales and service officer, porter sample case)? Give summary @ -No Was smoking cessation discussed for >3mins.? @ -No Was critical care preformed (if so, how long)? @ -No Were there social determinants of health that impacted care today? How? (Homelessness, low income, unemployed, alcoholism, drug addiction, transportation, low edu. Level, literacy, decrease access to med. care, fpc, rehab)? @ -No Was there de-escalation of care discussed even if they declined (Discuss DNR or withdrawal of care, Hospice)? DNR status @ -No What co-morbidities impacted this encounter? (DM, HTN, Smoking, COPD, CAD, Cancer, CVA, ARF, Chemo, Hep., AIDS, mental health diagnosis, sleep apnea, morbid obesity)? @ -Asthma Was patient admitted / discharged? Hospital course, mention meds given and route, prescriptions, significant lab abnormalities, going to OR and other pertinent info. @ -Patient presents with what appears to be a mild asthma exacerbation as well as upper respiratory infection. We will obtain viral swabs, chest x-ray. She will be given IM Solu-Medrol as well as a breathing treatment. Patient was in agreement this plan. Viral swabs negative. Chest x-ray unremarkable. On reevaluation, patient's breathing is improved. I discussed results with her. She will be started on Augmentin, as well as given a prescription for the antibiotic as well as prednisone and albuterol inhaler. Strict return precautions discussed. Patient was in agreement this plan. I instructed the patient to follow up with their PCP in the next 1-3 days. I explained that the patient should return to the emergency department if they experience any worsening symptoms. Strict return precautions were discussed with the patient. The patient expressed understanding of these instructions. I answered all questions that the patient had. The patient was discharged home in good condition with their prescriptions and follow up information. Undiagnosed new problem with uncertain prognosis? @ -No Drug Therapy requiring intensive monitoring for toxicity (Heparin, Nitro, Insulin, Cardizem)? @ -No Were any procedures done? @ -No Diagnosis/symptom? @ -Asthma exacerbation, pneumonia Acute, or Chronic, or Acute on Chronic? @ -Acute Uncomplicated (without systemic symptoms) or Complicated (systemic symptoms)? @ -Uncomplicated Side effects of treatment? @ -No Exacerbation, Progression, or Severe Exacerbation? @ -No Poses a threat to life or bodily function? How? (Chest pain, [place], [place], pneumonia, PE, COPD, DKA, ARF, appy, cholecystitis, CVA, Diverticulitis, Homicidal, Suicidal, threat to staff... and all critical care pts) @ -Unlikely at this time - Lab Data Lab Results 11/18/24 Range/Units 12:48 Influenza Type A (PCR) Not Detected (Not Detectd) Influenza Type B (PCR) Not Detected (Not Detectd) RSV (PCR) Not Detected (Not Detectd) SARS-CoV-2 (PCR) Not Detected (Not Detectd) Disposition Clinical Impression: Asthma, Community acquired pneumonia Disposition: HOME SELF-CARE Condition: Good Instructions (If sedation given, give patient instructions): Asthma (DC), Community Acquired Pneumonia (ED) Prescriptions: Amoxic-Pot Clav 875-125Mg [Augmentin 875-125] 1 tab PO BID 10 Days #20 tab predniSONE [Deltasone] 40 mg PO DAILY 5 Days #10 tab Albuterol Sulfate [Ventolin HFA] 1 - 2 puff INHALATION Q6H PRN #1 each PRN Reason: Dyspnea Is patient prescribed a controlled substance at d/c from ED?: No Referrals: Lloyd Colon DO [Primary Care Provider] - 1-2 days Time of Disposition: 13:48
[2024-11-18] MEDS: AMOXIC-POT CLAV 875-125MG 1 EACH TAB PO STA (14:01)
[2024-11-18 14:05] VITALS: BP 135/76; PULSE 97; TEMP 97.8
== END 2024-11-18 14:05 | disposition home or self-care (01) ==
LOC: EC 11:48
DX: J45.909 Unspecified asthma, uncomplicated (principal); J18.9 Pneumonia, unspecified organism
CPT/HCPCS: 87636; 71046; 99283; 96372; J2919